=== PATIENT | female | born 1945 | race Caucasian/White ===

== ENCOUNTER 2017-11-22 09:26 | Emergency (ER) | payer MEDICARE ==
[2017-11-22 09:50] VITALS: RESP 18
[2017-11-22] MEDS ORDERED: SODIUM CHLORIDE 0.9% 500 ML IV STA (10:24)
--- NOTE | 2017-11-22 10:26 | ED ---
General Adult HPI - General Chief complaint: Arrhythmia/Palpitations Stated complaint: SOB Time Seen by Provider: 11/22/17 09:35 Source: patient, RN notes reviewed Mode of arrival: ambulatory Limitations: no limitations - History of Present Illness Initial comments: This is a 72-year-old female presents emergency Department with a past medical history significant for SVT in the past. Patient states she had an ablation in 2004. Patient states yesterday she had about a half hour long episode of palpitations. It resolved on its own. Patient states she was also short of breath when this occurred. Patient states again this morning she started having some shortness of breath lasted about an hour and then it resolved. Patient states again she was short of breath. Patient states currently she is asymptomatic. Patient states at no time did she have any chest pain. Patient denies any sweating patient denies any nausea patient denies headache patient denies numbness weakness. Patient denies lightheadedness dizziness or near syncopal episode. Patient denies any recent fever chills or cough. - Related Data Home Medications Medication Instructions Recorded Confirmed Aspirin 81 mg PO DAILY 10/25/15 11/16/15 Atorvastatin [Lipitor] 10 mg PO HS 10/25/15 11/16/15 Celecoxib [CeleBREX] 200 mg PO DAILY 10/25/15 11/16/15 Cholecalciferol [Vitamin D3] 2,000 unit PO DAILY 10/25/15 11/16/15 Fluticasone Nasal [place] [Flonase 1 spray EA NOSTRIL DAILY PRN 10/25/15 11/16/15 Nasal [place]] Lansoprazole [Prevacid] 30 mg PO DAILY 10/25/15 11/16/15 Metoprolol Tartrate [Lopressor] 25 mg PO BID 10/25/15 11/16/15 Multivitamins, Thera [Multivitamin 1 tab PO DAILY 10/25/15 11/16/15 (formulary)] Previous Rx's Medication Instructions Recorded Rivaroxaban [Xarelto] 10 mg PO DAILY #28 tab 11/07/15 Docusate [Colace] 100 mg PO DAILY #30 capsule 11/08/15 Famotidine [Pepcid] 20 mg PO DAILY #30 tablet 11/08/15 Hydrocodone/Acetaminophen [[place] 1 each PO Q6HR PRN #40 tab 11/08/15 5-325] traMADol HCl [Ultram] 50 mg PO Q6H PRN #40 tab 11/08/15 Allergies Allergy/AdvReac Type Severity Reaction Status Date / Time sulfamethoxazole Allergy Itching Verified 11/22/17 09:34 [From Bactrim] trimethoprim [From Bactrim] Allergy Itching Verified 11/22/17 09:34 Review of Systems ROS Statement: Those systems with pertinent positive or pertinent negative responses have been documented in the HPI. ROS Other: All systems not noted in ROS Statement are negative. Past Medical History Past Medical History: Deep Vein Thrombosis (DVT), Eye Disorder, GERD/Reflux, Hyperlipidemia, Osteoarthritis (OA), Pulmonary Embolus (PE), Supraventricular Tachycardia (SVT) Additional Past Medical History / Comment(s): MACULAR DEGENERATION History of Any Multi-Drug Resistant Organisms: None Reported Past Surgical History: Cardiac Ablation, Joint Replacement Additional Past Surgical History / Comment(s): ANTERIOR TOTAL RIGHT HIP, Left hip sx Past Anesthesia/Blood Transfusion Reactions: No Reported Reaction Past Psychological History: Anxiety Smoking Status: Never smoker Past Alcohol Use History: Rare Past Drug Use History: None Reported - Past Family History Mother Family Medical History: No Reported History General Exam - General Exam Comments Initial Comments: GENERAL: Patient is well-developed and well-nourished. Patient is nontoxic and well- hydrated and is in mild distress. ENT: Neck is soft and supple. No significant lymphadenopathy is noted. Oropharynx is clear. Moist mucous membranes. Neck has full range of motion without eliciting any pain. EYES: The sclera were anicteric and conjunctiva were pink and moist. Extraocular movements were intact and pupils were equal round and reactive to light. Eyelids were unremarkable. PULMONARY: Unlabored respirations. Good breath sounds bilaterally. No audible rales rhonchi or wheezing was noted. CARDIOVASCULAR: There is a regular rate and rhythm without any murmurs gallops or rubs. Femoral pulses are equal bilaterally ABDOMEN: Soft and nontender with normal bowel sounds. No palpable organomegaly was noted. There is no palpable pulsatile mass. SKIN: Skin is clear with no lesions or rashes and otherwise unremarkable. NEUROLOGIC: Patient is alert and oriented x3. Cranial nerves II through XII are grossly intact. Motor and sensory are also intact. Normal speech, volume and content. Symmetrical smile. MUSCULOSKELETAL: Normal extremities with adequate strength and full range of motion. No lower extremity swelling or edema. No calf tenderness. LYMPHATICS: No significant lymphadenopathy is noted PSYCHIATRIC: Normal psychiatric evaluation. Normal interpersonal interactions appears functionally intact in deals appropriately with others. No signs of depression. No signs of anxiety. Limitations: no limitations Course Vital Signs 11/22/17 11/22/17 11/22/17 09:33 09:48 10:57 Temperature 98.0 F 98.2 F Pulse Rate 67 63 53 L Respiratory 20 18 18 Rate Blood Pressure 126/69 142/68 136/68 O2 Sat by Pulse 98 97 98 Oximetry Medical Decision Making - Medical Decision Making EKG is a normal sinus rhythm at 63 bpm NM interval is 200 QRS is 126 QT interval 440 QTC is 458. Patient's EKG is compared to old EKG there are no acute changes. Chest x-ray shows no acute abnormality. - Lab Data Result diagrams: 11/22/17 09:48 11/22/17 09:48 Lab Results 11/22/17 11/22/17 11/22/17 Range/Units 09:48 09:48 09:48 WBC 5.3 (3.8-10.6) k/uL RBC 4.66 (3.80-5.40) m/uL Hgb 14.3 (11.4-16.0) gm/dL Hct 43.3 (34.0-46.0) % MCV 93.1 (80.0-100.0) fL MCH 30.6 (25.0-35.0) pg MCHC 32.9 (31.0-37.0) g/dL RDW 12.8 (11.5-15.5) % Plt Count 216 (150-450) k/uL Neutrophils % 54 % Lymphocytes % 32 % Monocytes % 7 % Eosinophils % 3 % Basophils % 0 % Neutrophils # 2.8 (1.3-7.7) k/uL Lymphocytes # 1.7 (1.0-4.8) k/uL Monocytes # 0.4 (0-1.0) k/uL Eosinophils # 0.2 (0-0.7) k/uL Basophils # 0.0 (0-0.2) k/uL PT (9.0-12.0) sec INR (<1.2) APTT (22.0-30.0) sec Sodium 141 (137-145) mmol/L Potassium 5.3 H (3.5-5.1) mmol/L Chloride 102 (98-107) mmol/L Carbon Dioxide 31 H (22-30) mmol/L Anion Gap 8 mmol/L BUN 23 H (7-17) mg/dL Creatinine 0.71 (0.52-1.04) mg/dL Est GFR (CKD-EPI)AfAm >90 (>60 ml/min/1.73 sqM) Est GFR (CKD-EPI)NonAf 86 (>60 ml/min/1.73 sqM) Glucose 110 H (74-99) mg/dL Calcium 10.3 H (8.4-10.2) mg/dL Magnesium 2.2 (1.6-2.3) mg/dL Total Bilirubin 0.5 (0.2-1.3) mg/dL AST 34 (14-36) U/L ALT 40 (9-52) U/L Alkaline Phosphatase 64 (38-126) U/L Total Creatine Kinase 58 (30-135) U/L CK-MB (CK-2) 0.7 (0.0-2.4) ng/mL CK-MB (CK-2) Rel Index 1.2 Troponin I <0.012 (0.000-0.034) ng/mL Total Protein 7.3 (6.3-8.2) g/dL Albumin 4.4 (3.5-5.0) g/dL TSH 1.570 (0.465-4.680) mIU/L Free T4 1.14 (0.78-2.19) ng/dL 11/22/17 Range/Units 09:48 WBC (3.8-10.6) k/uL RBC (3.80-5.40) m/uL Hgb (11.4-16.0) gm/dL Hct (34.0-46.0) % MCV (80.0-100.0) fL MCH (25.0-35.0) pg MCHC (31.0-37.0) g/dL RDW (11.5-15.5) % Plt Count (150-450) k/uL Neutrophils % % Lymphocytes % % Monocytes % % Eosinophils % % Basophils % % Neutrophils # (1.3-7.7) k/uL Lymphocytes # (1.0-4.8) k/uL Monocytes # (0-1.0) k/uL Eosinophils # (0-0.7) k/uL Basophils # (0-0.2) k/uL PT 9.8 (9.0-12.0) sec INR 1.0 (<1.2) APTT 21.8 L (22.0-30.0) sec Sodium (137-145) mmol/L Potassium (3.5-5.1) mmol/L Chloride (98-107) mmol/L Carbon Dioxide (22-30) mmol/L Anion Gap mmol/L BUN (7-17) mg/dL Creatinine (0.52-1.04) mg/dL Est GFR (CKD-EPI)AfAm (>60 ml/min/1.73 sqM) Est GFR (CKD-EPI)NonAf (>60 ml/min/1.73 sqM) Glucose (74-99) mg/dL Calcium (8.4-10.2) mg/dL Magnesium (1.6-2.3) mg/dL Total Bilirubin (0.2-1.3) mg/dL AST (14-36) U/L ALT (9-52) U/L Alkaline Phosphatase (38-126) U/L Total Creatine Kinase (30-135) U/L CK-MB (CK-2) (0.0-2.4) ng/mL CK-MB (CK-2) Rel Index Troponin I (0.000-0.034) ng/mL Total Protein (6.3-8.2) g/dL Albumin (3.5-5.0) g/dL TSH (0.465-4.680) mIU/L Free T4 (0.78-2.19) ng/dL Disposition Clinical Impression: Palpitations Disposition: HOME SELF-CARE Condition: Good Instructions: Palpitations (ED) Is patient prescribed a controlled substance at d/c from ED?: No Referrals: Joe Euceda MD [Primary Care Provider] - 1-2 days Time of Disposition: 11:26
[2017-11-22 10:47] LABS: Basophils % (A) 0 %; Eosinophils # (A) 0.2 k/uL (0-0.7); Eosinophils % (A) 3 %; HCT 43.3 % (34.0-46.0); HGB 14.3 gm/dL (11.4-16.0); Lymphocytes # (A) 1.7 k/uL (1.0-4.8); Lymphocytes % (A) 32 %; MCH 30.6 pg (25.0-35.0); MCHC 32.9 g/dL (31.0-37.0); MCV 93.1 fL (80.0-100.0); Mean Platelet Volume 7.1; Monocytes # (A) 0.4 k/uL (0-1.0); Monocytes % (A) 7 %; Neutrophils # (A) 2.8 k/uL (1.3-7.7); Neutrophils % (A) 54 %; Platelet Count 216 k/uL (150-450); RBC 4.66 m/uL (3.80-5.40); RDW 12.8 % (11.5-15.5); WBC 5.3 k/uL (3.8-10.6)
[2017-11-22 10:51] LABS: ALT 40 U/L (9-52); AST 34 U/L (14-36); Albumin 4.4 g/dL (3.5-5.0); Alkaline Phosphatase 64 U/L (38-126); Anion Gap 8 mmol/L; Blood Urea Nitrogen 23 mg/dL (7-17); Calcium 10.3 mg/dL (8.4-10.2); Carbon Dioxide 31 mmol/L (22-30); Chloride 102 mmol/L (98-107); Glucose 110 mg/dL (74-99); Magnesium 2.2 mg/dL (1.6-2.3); Potassium 5.3 mmol/L (3.5-5.1); Sodium 141 mmol/L (137-145); Total Bilirubin 0.5 mg/dL (0.2-1.3); Total Protein 7.3 g/dL (6.3-8.2)
[2017-11-22 10:54] LABS: Creatine Kinase 58 U/L (30-135)
[2017-11-22 10:57] VITALS: BP 136/68; PULSE 53; TEMP 98.2
[2017-11-22 11:03] LABS: Prothrombin Time 9.8 sec (9.0-12.0)
[2017-11-22 11:07] LABS: Creatine Kinase MB 0.7 ng/mL (0.0-2.4); Troponin I <0.012 ng/mL (0.000-0.034)
[2017-11-22 11:08] LABS: T4, Free (Free Thyroxine) 1.14 ng/dL (0.78-2.19)
[2017-11-22 11:09] LABS: Partial Thromboplastin Time 21.8 sec (22.0-30.0)
--- NOTE | 2017-11-22 11:11 | XR ---
EXAMINATION TYPE: XR chest 2V DATE OF EXAM: 11/22/2017 COMPARISON: Chest x-ray December 23, 2011. HISTORY: Palpitations and dysrhythmia. TECHNIQUE: Frontal and lateral views of the chest are obtained. FINDINGS: There is persistent left basilar linear scarring and/or atelectasis There is no new suspici ous focal air space opacity, pleural effusion, or pneumothorax seen. The cardiac silhouette size is within normal limits. The osseous structures are intact. IMPRESSION: No suspicious new acute cardiopulmonary process.
== END 2017-11-22 11:49 | disposition home or self-care (01) ==
LOC: EC 09:26
DX: R00.2 Palpitations (principal); R06.02 Shortness of breath; K21.9 Gastro-esophageal reflux disease without esophagitis; E78.5 Hyperlipidemia, unspecified; M19.90 Unspecified osteoarthritis, unspecified site; Z79.82 Long term (current) use of aspirin; Z79.899 Other long term (current) drug therapy; Z88.2 Allergy status to sulfonamides; Z96.641 Presence of right artificial hip joint
CPT/HCPCS: 36415; 71046; 80053; 82550; 82553; 83735; 84439; 84443; 84484; 85025; 85610; 85730; 93005; 99285

== ENCOUNTER → 2018-01-01 | Outpatient (CLI) | payer MEDICARE ==
[2018-01-01 10:08] VITALS: BP 113/70; PULSE 66; RESP 18; TEMP 97.7; BMI 27.0
--- NOTE | 2018-01-01 10:59 | P.GSHP ---
History of Present Illness H&P Date: 01/01/18 Mrs. Ferrara is a 72-year-old white female who was initially seen approximately a year ago with a complaint of pain in her right breast. Since that time she has been taking primrose oil and the pain has largely resolved. She has had a bilateral mammogram performed 12/21/17 which did not reveal anything of concern and was considered a BIRADS 1 and recommend normal interval follow-up. The patient herself denies any masses in her breast. She denies any nipple discharge or skin changes. The patient is not complaining of any pain in her breast at this time. The patient drinks decaffeinated coffee, she is not exposed to secondhand smoke , and she drinks approximately one soda a day as his caffeine free. She does not eat chocolate. She continues to take primrose oil and has noticed a decreased discomfort in the right breast with a primrose oil. Family history: 1. Maternal grandmother with leukemia 2. Mother breast cancer 47 of breast cancer, locally advanced "hole in her side" 3. Father melanoma and prostate cancer Past surgical history: 1. Hysterectomy 2. Appendectomy 3. Bilateral hip replacement 4. Cardiac ablation 5. Left-sided neck lump Past medical history: 1. HTN menarche: 14 : none, intentional menopause: about 51, hysterectomy at 61 took ovaries done for fibroid tumors hormones: none BCP: 5 years Social history: Smoking: Negative Alcohol: negative Drugs: Negative - Constitutional Constitutional: Reports sweats, Denies chills, Denies fever - EENT Eyes: bilateral decreased vision (macular degenertion), denies blurred vision, denies pain Ears: deny: decreased hearing, tinnitus Ears, nose, mouth and throat: Denies headache, Denies sore throat - Breasts Breasts: bilateral: as per HPI - Cardiovascular Comment: cardiac ablation, has PVC Cardiovascular: Reports high blood pressure - Respiratory Respiratory: Denies cough, Denies 7 - Gastrointestinal Gastrointestinal: Denies abdominal pain, Denies diarrhea, Denies nausea, Denies vomiting - Menstruation Menstruation: Reports post hysterectomy, Reports postmenopausal - Musculoskeletal Comment: osteo arthritis - Integumentary Comment: pre-cancers removed - Neurological Neurological: Denies numbness, Denies weakness - Psychiatric Psychiatric: Denies anxiety, Denies depression - Endocrine Endocrine: Denies fatigue, Denies weight change - Hematologic/Lymphatic Comment: aspirin - Allergic/Immunologic Comment: to medication Bactrim Past Medical History Past Medical History: Deep Vein Thrombosis (DVT), Eye Disorder, GERD/Reflux, Hyperlipidemia, Osteoarthritis (OA), Pulmonary Embolus (PE), Supraventricular Tachycardia (SVT) Additional Past Medical History / Comment(s): MACULAR DEGENERATION History of Any Multi-Drug Resistant Organisms: None Reported Past Surgical History: Cardiac Ablation, Joint Replacement Additional Past Surgical History / Comment(s): ANTERIOR TOTAL RIGHT HIP, Left hip sx. rt breast biopsies Past Anesthesia/Blood Transfusion Reactions: No Reported Reaction Past Psychological History: Anxiety Smoking Status: Never smoker Past Alcohol Use History: Rare Past Drug Use History: None Reported - Past Family History Mother Family Medical History: No Reported History Medications and Allergies Home Medications Medication Instructions Recorded Confirmed Type Aspirin 81 mg PO DAILY 10/25/15 01/01/18 History Atorvastatin [Lipitor] 10 mg PO HS 10/25/15 01/01/18 History Celecoxib [CeleBREX] 200 mg PO DAILY 10/25/15 01/01/18 History Cholecalciferol [Vitamin D3] 2,000 unit PO DAILY 10/25/15 01/01/18 History Fluticasone Nasal [place] [Flonase 1 spray EA NOSTRIL DAILY PRN 10/25/15 11/16/15 History Nasal [place]] Lansoprazole [Prevacid] 30 mg PO DAILY 10/25/15 01/01/18 History Metoprolol Tartrate [Lopressor] 25 mg PO BID 10/25/15 01/01/18 History Multivitamins, Thera [Multivitamin 1 tab PO DAILY 10/25/15 01/01/18 History (formulary)] Allergies Allergy/AdvReac Type Severity Reaction Status Date / Time sulfamethoxazole Allergy Itching Verified 11/22/17 09:34 [From Bactrim] trimethoprim [From Bactrim] Allergy Itching Verified 11/22/17 09:34 Surgical - Exam Vital Signs Temp Pulse Resp BP 97.7 F 66 18 113/70 01/01/18 10:04 01/01/18 10:04 01/01/18 10:04 01/01/18 10:04 - General well developed, well nourished, no distress - Eyes normal ocular movement - ENT no hearing loss, no congestion - Neck no masses, trachea midline - Respiratory normal respiratory effort, clear to auscultation - Cardiovascular Rhythm: regular Heart Sounds: normal: S1, S2 - Abdomen Abdomen: soft, non tender, no guarding, no rigid, no rebound - Neurologic no disoriented, no combative - Musculoskeletal normal gait, normal posture - Psychiatric oriented to time, oriented to person, oriented to place, speech is normal, memory intact Breast examination: Right breast: Right breast is larger than the left breast this is been like this for many years multiple positional exam no dominant masses or nodules of concern, mild tenderness to palpation in the upper outer quadrant region improved from last year Right axilla: No adenopathy of concern Left breast: Multiple positional exam no dominant masses or nodules of concern Left axilla: No adenopathy of concern Results Bilateral mammogram from 12-21-17 reviewed BIRADS 1 Assessment and Plan Assessment: Impression/plan: 1. Polycystic breast changes 2. Mastodynia improved with primrose oil 3. Status post cardiac ablation 4. Osteoarthritis Plan: 1. Monthly self breast examinations 2. Continue primrose oil 3. Follow-up bilateral mammogram in physician exam in 1 year 4. Medical management of cardiac PVCs CC: Dr. Joe Euceda
== END ==
LOC: WWCWWP 09:46
PROVIDERS: ATTEND Surgery
DX: Z53.9 Procedure and treatment not carried out, unspecified reason (principal)

== ENCOUNTER → 2018-12-30 | Outpatient (CLI) | payer MEDICARE ==
--- NOTE | 2018-12-31 11:34 | MM ---
Reason for exam: screening (asymptomatic). Last mammogram was performed 1 year ago. History: Patient is postmenopausal and is nulliparous. Took hormonal contraceptives for 1 year. Taking estrogen. Physical Findings: A clinical breast exam by your physician is recommended on an annual basis and results should be correlated with mammographic findings. MG 3D Screening Mammo W/Cad Bilateral CC and MLO view(s) were taken. Prior study comparison: December 21, 2017, mammogram. December 08, 2016, mammogram. The breast tissue is heterogeneously dense. This may lower the sensitivity of mammography. Previous mammotome biopsy in the right breast. Asymmetric breast tissue in the right breast is stable. There is no discrete abnormality. ASSESSMENT: Negative, BI-RAD 1 RECOMMENDATION: Routine screening mammogram of both breasts in 1 year.
== END | disposition home or self-care (01) ==
LOC: RADMAMWWP 08:12
PROVIDERS: ATTEND Internal Medicine
DX: Z12.31 Encounter for screening mammogram for malignant neoplasm of breast (principal); Z80.3 Family history of malignant neoplasm of breast
CPT/HCPCS: 77063; 77067

== ENCOUNTER → 2019-01-05 | Outpatient (CLI) | payer MEDICARE ==
[2019-01-05 10:22] LABS: HGB 13.7 gm/dL (11.4-16.0); MCH 29.8 pg (25.0-35.0); MCHC 31.9 g/dL (31.0-37.0); MCV 93.3 fL (80.0-100.0); Mean Platelet Volume 7.4; Platelet Count 218 k/uL (150-450); WBC 6.7 k/uL (3.8-10.6)
[2019-01-05 10:39] LABS: Magnesium 2.2 mg/dL (1.6-2.3); Potassium 5.4 mmol/L (3.5-5.1)
== END | disposition home or self-care (01) ==
LOC: LABPAT 09:25
PROVIDERS: ATTEND Internal Medicine Interventional Cardiology
DX: Z01.812 Encounter for preprocedural laboratory examination (principal); I47.1 Supraventricular tachycardia; R07.89 Other chest pain
CPT/HCPCS: 80051; 82565; 82947; 83735; 84520; 85027

== ENCOUNTER → 2019-01-07 | Outpatient (CLI) | payer MEDICARE ==
[2019-01-07 10:49] VITALS: BP 102/67; PULSE 52; RESP 18; TEMP 98.5; BMI 27.0
--- NOTE | 2019-01-07 11:06 | P.PN ---
Subjective Progress Note Date: 01/07/19 Mrs. Ferrara is a 73-year-old white female who was initially seen approximately two years ago with a complaint of pain in her right breast. Since that time she has been taking primrose oil and the pain has largely resolved. She has had a bilateral mammogram performed 12/30/18 which did not reveal anything of concern and was considered a BIRADS 1 and recommend normal interval follow-up. The patient herself denies any masses in her breast. She denies any nipple discharge or skin changes. The patient is not complaining of any pain in her breast at this time. The patient drinks decaffeinated coffee, she is not exposed to secondhand smoke, and she drinks approximately one soda a day and this is caffeine free. She does not smoke. She does not eat chocolate often. She continues to take primrose oil and has noticed a decreased discomfort in the right breast with a primrose oil. She takes one pill/day of [place] oil but she does not know the dose. Family history: 1. Maternal grandmother with leukemia 2. Mother breast cancer 47 of breast cancer, locally advanced "hole in her side" 3. Father melanoma and prostate cancer Past surgical history: 1. Hysterectomy 2. Appendectomy 3. Bilateral hip replacement 4. Cardiac ablation/ done for SVT 5. Left-sided neck lump Past medical history: 1. hypotension, scheduled for cadiac cath 2. DVT 3. eye disorder 4. reflux 5. hyperlipedema 6. Pulmoary embolis 7. osteoarthrits menarche: 14 : none, intentional menopause: about 51, hysterectomy at 61 took ovaries done for fibroid tumors hormones: none BCP: 5 years Social history: Smoking: Negative Alcohol: negative Drugs: Negative - Constitutional Constitutional: Reports sweats, Denies chills, Denies fever - EENT Eyes: bilateral decreased vision (macular degenertion), denies blurred vision, d enies pain Ears: deny: decreased hearing, tinnitus Ears, nose, mouth and throat: Denies headache, Denies sore throat - Breasts Breasts: bilateral: as per HPI - Cardiovascular Comment: cardiac ablation, has PVC Cardiovascular: Reports recent hypotension, scheduled for a cardiac cath - Respiratory Respiratory: Denies cough, Denies 7 - Gastrointestinal Gastrointestinal: Denies abdominal pain, Denies diarrhea, Denies nausea, Denies vomiting, reflux gone on medication - Menstruation Menstruation: Reports post hysterectomy, Reports postmenopausal - Musculoskeletal Comment: osteo arthritis - Integumentary Comment: pre-cancers removed - Neurological Neurological: Denies numbness, Denies weakness - Psychiatric Psychiatric: Denies anxiety, Denies depression - Endocrine Endocrine: Denies fatigue, Denies weight change - Hematologic/Lymphatic Comment: aspirin - Allergic/Immunologic Comment: to medication Bactrim Past Medical History Past Medical History: Deep Vein Thrombosis (DVT), Eye Disorder, GERD/Reflux, Hyperlipidemia, Osteoarthritis (OA), Pulmonary Embolus (PE), Supraventricular Tachycardia (SVT) Additional Past Medical History / Comment(s): MACULAR DEGENERATION History of Any Multi-Drug Resistant Organisms: None Reported Past Surgical History: Cardiac Ablation, Joint Replacement Additional Past Surgical History / Comment(s): ANTERIOR TOTAL RIGHT HIP, Left hip sx. rt breast biopsies Past Anesthesia/Blood Transfusion Reactions: No Reported Reaction Past Psychological History: Anxiety Smoking Status: Never smoker Past Alcohol Use History: Rare Past Drug Use History: None Reported Objective - Vital Signs Vital signs: Vital Signs Temp 98.5 F 01/07/19 10:43 Pulse 52 L 01/07/19 10:43 Resp 18 01/07/19 10:43 BP 102/67 01/07/19 10:43 Pulse Ox 96 01/07/19 10:43 Intake & Output 01/06/19 01/07/19 01/07/19 18:59 06:59 18:59 Weight 83.007 kg - Exam BMI 27 - Constitutional General appearance: Present: average body habitus - EENT Eyes: Present: EOMI ENT: Present: hearing grossly normal - Neck Neck: Present: normal ROM - Respiratory Respiratory: bilateral: CTA - Cardiovascular Rhythm: regular Heart sounds: normal: S1, S2 - Gastrointestinal General gastrointestinal: Present: soft - Musculoskeletal Musculoskeletal: Present: gait normal - Psychiatric Psychiatric: Present: A&O x's 3, appropriate affect, intact judgment & insight - Additional findings Additional findings: breast exam: right breast: multipositional exam no dominate masses or nodules of concern right axilla: no adenopathy of concern left breast: multipositional exam no dominate masses or nodules of concern left axilla: no adenopathy of concern Assessment and Plan Assessment: Impression: 1. hypotension, scheduled for cadiac cath 2. DVT 3. eye disorder 4. reflux 5. hyperlipedema 6. Pulmoary embolis 7. osteoarthrits 8. Fibrocystic breast changes 9. Asymmetry of the breast right larger than the left 10. family history of breast cancer 11. family history of cancer Plan: 1. Repeat bilateral mammogram in one year with appointment in one year 2. follow up sooner if anything of concern 3. medical managment [place] medical conditions CC: Dr. Euceda
== END | disposition home or self-care (01) ==
LOC: WWCWWP 10:16
PROVIDERS: ATTEND Surgery
DX: Z53.9 Procedure and treatment not carried out, unspecified reason (principal)

== ENCOUNTER 2019-01-17 05:58 | Day surgery (SDC) | payer MEDICARE ==
[2019-01-10 15:22] VITALS: BMI 27.0
[2019-01-17] MEDS ORDERED: NITROGLYCERIN SL TABS 0.4 MG TAB SUBLINGUAL PRN (06:09)
[2019-01-17] MEDS ORDERED: SODIUM CHLORIDE 0.9% 1,000 ML in EMPTY BAG 1 BAG IV ONE (06:09)
[2019-01-17] MEDS ORDERED: ALPRAZolam 0.5 MG TAB PO PRN (06:09)
[2019-01-17] MEDS ORDERED: ALPRAZolam 0.25 MG TAB PO PRN (06:09)
[2019-01-17 06:43] VITALS: TEMP 98
[2019-01-17] MEDS ORDERED: ASPIRIN 325 MG TAB PO ONE (07:00)
[2019-01-17] MEDS ORDERED: ATORVASTATIN 80 MG TAB PO ONE (07:00)
[2019-01-17] MEDS ORDERED: MIDAZOLAM (PF) 2 MG/2 ML VIAL IV ONE (07:54)
[2019-01-17] MEDS ORDERED: LIDOCAINE 1% INJ 10MG/ML (20 ML MDV) SQ ONE (07:57)
[2019-01-17] MEDS: VERAPAMIL SYRINGE (5 MG/10 ML) INTRAARTER ONE ×2 (08:00→08:08)
[2019-01-17] MEDS ORDERED: HEPARIN SODIUM 1,000 UN/ML (10ML VL) IV ONE (08:02)
[2019-01-17] MEDS ORDERED: IOPAMIDOL-370 100ML BTL INJ ONE (08:09)
--- NOTE | 2019-01-17 08:48 | CC ---
CARDIAC CATHETERIZATION REPORT DATE OF SERVICE: 01/17/2019 PROCEDURE: Left heart catheterization and coronary angiography. PERFORMED BY: Dr. Barbara Agarwal. Moderate conscious sedation time was 14 minutes. Patient was administered Versed. Oxygen saturation, hemodynamics and EKG were monitored closely. CLINICAL INFORMATION: Mrs. Nay Ferrara is a 73-year-old lady with history of SVT, status post radiofrequency ablation performed in the past in [place]. She has hypertension, hyperlipidemia and recently developed chest tightness and pressure. A Lexiscan stress test revealed antral reversible defect and therefore she was advised cardiac catheterization. The rationale, risks, benefits, and options were explained to the patient and . PROCEDURE NOTE: Under local anesthesia and strict aseptic precautions, a 6-[place] introducer was placed in the right radial artery. Using an Ultimate 1 catheter, I performed coronary angiography and checked LV pressures. Catheter and sheath were taken out and TR band applied as per protocol. Patient tolerated procedure well. There were no complications. The saturation in the fingers of the right hand was 94% after the procedure. CARDIAC CATHETERIZATION FINDINGS: The left ventricular end-diastolic pressure was about 13 mmHg without any gradient across aortic valve. CORONARY ANGIOGRAPHY FINDINGS: RIGHT CORONARY ARTERY: Technically a large dominant vessel, has no significant disease and distally bifurcates into PDA and PLV, both of which supply a sizable amount of myocardium. No significant disease in the dominant RCA. LEFT MAIN CORONARY ARTERY: This is left main coronary artery. this is a long patent disease-free vessel that bifurcates into LAD and circumflex. There is no significant disease in the left main coronary artery. This is a long disease-free vessel. LEFT ANTERIOR DESCENDING CORONARY ARTERY: Good caliber vessel, extends along the anterior wall, gives off a large diagonal proximally that also runs in the LAD distribution. The diagonal is free of significant disease in LAD. However, is smaller in caliber, has no significant disease, gives off septal branch and runs towards the apex. No significant disease in the LAD diagonal and septal branches. LEFT POSTERIOR CIRCUMFLEX CORONARY ARTERY: Technically a nondominant vessel that runs the that runs laterally, gives off a single obtuse marginal has minor irregularities no significant disease. LEFT VENTRICULOGRAM: This was not performed. FINAL IMPRESSION: This patient has a right dominant system. Normal filling pressures. No gradient across the aortic valve and no significant disease. Stress test was probably a false positive. RECOMMENDATIONS: Findings were discussed with the patient and . I am recommending continued medical therapy with risk factor modification. No specific intervention necessary. Patient will be discharged later on today if she remains stable. MMODL / IJN: [id number] /
[2019-01-17 14:55] VITALS: PULSE 58
[2019-01-17 14:56] VITALS: BP 118/62; RESP 18
== END 2019-01-17 14:09 | disposition home or self-care (01) ==
LOC: CATHCVL 05:58
PROVIDERS: ATTEND Internal Medicine Interventional Cardiology
DX: R94.39 Abnormal result of other cardiovascular function study (principal); R07.89 Other chest pain; I10 Essential (primary) hypertension; E78.5 Hyperlipidemia, unspecified; E78.00 Pure hypercholesterolemia, unspecified; F17.210 Nicotine dependence, cigarettes, uncomplicated; Z79.82 Long term (current) use of aspirin; Z79.890 Hormone replacement therapy; Z79.899 Other long term (current) drug therapy
CPT/HCPCS: 93458; C1769; C1894; J2001; J1644; Q9967; J2250

== ENCOUNTER → 2019-11-24 | Outpatient (CLI) | payer MEDICARE | END | disposition home or self-care (01) | LOC: LABPAT 09:01 | PROVIDERS: ATTEND Orthopaedic Surgery | DX: Z01.812 Encounter for preprocedural laboratory examination (principal) | CPT/HCPCS: 87070 ==

== ENCOUNTER 2019-12-05 10:58 | Observation (INO) | payer MEDICARE ==
[2019-12-02 07:56] VITALS: BMI 25.7
--- NOTE | 2019-12-04 09:56 | HP ---
HISTORY AND PHYSICAL REASON FOR ADMISSION: Surgery scheduled for 12/05/2019 HISTORY OF PRESENT ILLNESS: Nay Ferrara is a 74-year-old patient seen with symptomatic right knee osteoarthritis. We discussed options for treatment. She elected to proceed with right total knee arthroplasty. Consent regarding the procedure was obtained. Medical clearance was provided by [facility]. Cardiac clearance by Dr. Barbara Agarwal. PAST MEDICAL HISTORY: Hypertension, hyperlipidemia, gastroesophageal reflux disease. PAST SURGICAL HISTORY: Bilateral total hip arthroplasty, cardiac ablation, appendectomy. MEDICATIONS: Metoprolol, atorvastatin, Celebrex, Flonase, omeprazole. ALLERGIES: BACTRIM. SOCIAL HISTORY: She denies tobacco use. PHYSICAL EXAMINATION: Evaluation of right knee: Range of motion is -3 to 130. Tenderness medial joint line. Crepitus medial patellofemoral compartments range of motion. Pain with patellofemoral compression. Ligaments stable. Hip rotation without pain. Distal neurovascular exam is intact. RADIOGRAPHS: Right knee radiographs reveal severe osteoarthritic changes. IMPRESSION: 1. Right knee osteoarthritis. 2. Hypertension. 3. Hyperlipidemia. PLAN: Right total knee arthroplasty. Surgery 12/05/2019. MMODL / IJN: [id number] /
[~2019-12-05 10:58] MED LIST: ACETAMINOPHEN TAB 500 MG TAB PO ONE; MELOXICAM 7.5 MG TAB PO ONE; TRANEXAMIC ACID 1,000 MG in SODIUM CHLORIDE 0.9% 100 ML IVPB ONE
[2019-12-05] MEDS ORDERED: LACTATED RINGERS 1,000 ML IV ONE ×2 (11:43→12:57)
[2019-12-05] MEDS ORDERED: MIDAZOLAM 2 MG/2 ML VIAL IVP ONE (11:50)
[2019-12-05] MEDS ORDERED: fentaNYL (PF) 50 MCG/ML 2 ML AMP IVP ONE (11:50)
[2019-12-05] MEDS ORDERED: DEXAMETHASONE SOD PHOSPHATE 10 MG/ML 1 ML VIAL IV ONE (12:00)
[2019-12-05] MEDS ORDERED: ONDANSETRON 4 MG/2 ML VIAL IVP ONE (12:00)
[2019-12-05] MEDS ORDERED: TRANEXAMIC ACID 1,000 MG/10 ML VIAL ONE (12:10)
[2019-12-05] MEDS ORDERED: MIDAZOLAM 2 MG/2 ML VIAL ONE (12:10)
[2019-12-05] MEDS ORDERED: PROPOFOL 10 MG/ML 20 ML VIAL IV ONE (12:10)
[2019-12-05] MEDS ORDERED: PHENYLEPHRINE-0.9% NACL SYG 1 MG/10 ML SYRINGE ONE (12:10)
[2019-12-05] MEDS ORDERED: ROPIVACAINE 0.2%-NS ON-Q PUMP 1,090 MG, EMPTY PAIN BALL 1 EACH MISCELLANE PRN (12:10)
[2019-12-05] MEDS ORDERED: fentaNYL (PF) 50 MCG/ML 2 ML AMP ONE (12:10)
[2019-12-05] MEDS ORDERED: SODIUM CHLORIDE 0.9% 100 ML BAG ONE (12:10)
--- NOTE | 2019-12-05 12:10 | P.ANPRN ---
Procedure Note - Anesthesia - Nerve Block Performed Right Adductor Canal Infusion Time Out Performed: Yes Date of Procedure: 12/05/19 Procedure Start Time: 11:50 Procedure Stop Time: 12:02 Location of Patient: PreOp Indication: Requested by Surgeon Specifically requested for management of pain by DrMonie: Abner Chicas Sedation Type: Sedate with meaningful contact maintained Preparation: Sterile Prep, Sterile Dressing Position: Supine Catheter: Indwelling Needle Types: Pajunk Needle Gauge: 21 Ultrasound used to visualize needle placement: Yes Ultrasound used to observe medication spread: Yes Injectate: 0.5% Ropivacaine (see comment for volume) (20 ml) Blood Aspirated: No Pain Paresthesia on Injection Noted: No Resistance on Injection: Normal Image Stored and Saved: Yes Events: Uneventful and Well Tolerated
[2019-12-05] MEDS ORDERED: ceFAZolin 3,000 MG in SODIUM CHLORIDE 0.9% IRRIGATIO 3,000 ML IRRIGATION ONE (12:14)
[2019-12-05] MEDS: ROPIVACAINE 246.25 MG, EPINEPHrine 0.5 MG, KETOROLAC 30 MG, cloNIDine HCL/PF 80 MCG, WA... MISCELLANE ONE ×10 (12:45→13:14)
--- NOTE | 2019-12-05 14:00 | P.OP ---
Date of Procedure: 12/05/19 Preoperative Diagnosis: Right knee osteoarthritis Postoperative Diagnosis: Right knee osteoarthritis Procedure(s) Performed: Right total knee arthroplasty Implants: 1. Depuy attune size 5 right cruciate retaining cemented femur 2. Depuy attune size 4 fixed bearing cemented tibial baseplate 3. Depuy attune size 5 fixed bearing cruciate retaining 8 mm polyethylene tibial insert 4. Depuy attune 35 mm all polyethylene cemented patella Anesthesia: regional (Abductor canal catheter), local, spinal Surgeon: Abner Chicas Newspaper Deliverer #1: Phillip Zapien Estimated Blood Loss (ml): 25 Pathology: other (Bone) Condition: stable Disposition: PACU Indications for Procedure: 74-year-old patient seen with symptomatic right knee osteoarthritis. After treatment options were discussed, she elected to proceed with total knee ar throplasty. Operative Findings: See description of procedure Description of Procedure: Patient was taken to the operative suite after having an adductor canal catheter placed by the department of anesthesia. Patient underwent a spinal anesthetic by the department of anesthesia. Patient was given preoperative IV intake antibiotics and TXA. A well-padded tourniquet was placed about the right lower extremity. The lower extremity was then prepped and draped in the normal sterile orthopedic fashion. The extremity was elevated, a tourniquet was insufflated to 300. A standard anterior incision was made sharply through skin. Dissection was taken down through the subcutaneous soft tissues down to the extensor mechanism. A medial arthrotomy was performed, patella was everted and knee was flexed. There was advanced osteoarthritis noted. I introduced my distal intramedullary femoral drill. I then introduced the distal femoral cutting jig. Epifanio HARLEY secured the cutting jig with 2 pins. I held retractors in position while Epifanio HARLEY performed the distal femoral resection through the guide area we now removed her distal femoral cutting guide. We now placed our 4-in-1 femoral cutting block and positioned and it was secured with 2 pins by Epifanio HARLEY while I held the block in position. The distal femoral finishing was now completed. A proximal tibial cutting guide was positioned. I held the guide in the appropriate position with both hands well Epifanio HARLEY inserted stabilizing pins into the guide. Proximal tibial cut was made. We now placed a trial femoral component into position, along with an appropriate size tibial tray and insert. We now took the knee through range of motion and had full extension good flexion and good overall soft tissue balance noted. The patella was everted and stabilized with 2 towel clips held by Epifanio HARLEY while I performed a flush with patellar quad tendon utilizing a fresh sawblade. We templated the patella, appropriate drill holes were made. An appropriate trial patella was positioned, knee was taken through full range of motion with the patella tracking very nicely. The trial patella was removed. Drill holes were made through the femoral component. All trial components were removed after marking off the appropriate rotation of the tibia. Retractors were now positioned along the proximal tibia. An appropriate keel punch was made with the appropriate size tibial guide by myself on Epifanio HARLEY assisted by holding retractors. At this point appropriate size implants were chosen and opened. The joint was irrigated copiously with pulse lavage mechanical irrigation. The posterior capsule was infiltrated with local analgesic. The wound was irrigated with pulse lavage mechanical irrigation. We mixed antibiotic methylmethacrylate. We placed the knee into flexion. We placed multiple retractors assisted by Epifanio HARLEY to expose the proximal tibia. Once the methyl methacrylate was ready, the tibial component was cemented into place removing any excess methylmethacrylate form by both myself and Epifanio HARLEY. The femoral component was cemented into place removing the removing any excess methylmethacrylate performed by both myself and Epifanio HARLEY. We then inserted the appropriate size polyethylene tibial insert. We made sure that it was locked into position. We took the knee into full extension, and then back in a flexion making sure we had removed any excess methylmethacrylate. The patellar component was then cemented down and secured with clamp. Excess methylmethacrylate removed. We kept the knee in full extension, patellar clamp in position until methylmethacrylate had hardened. Once it had hardened the patellar clamp was removed. The knee was taken through full range of motion. The patella tracked nicely. There was good soft tissue balancing. The tourniquet was now released. Additional hemostasis was achieved via electrocautery. A second gram of TXA was given. The wound again was irrigated with pulse lavage mechanical irrigation. The superficial soft tissues were infiltrated local analgesic. The extensor mechanism was repaired with Vicryl. We checked the repair with range of motion and it was stable. The subcutaneous soft tissues were repaired with Vicryl in layers. The skin was approximated with pernio/Dermabond. Sterile dressings were applied followed by loose web roll and Nahid bandage. The patient was transferred to a bed, and taken to recovery in stable and satisfactory condition. Epifanio HARLEY assisted with this complex procedure.
[2019-12-05] MEDS ORDERED: NALOXONE 0.4 MG/ML 1 ML VIAL IV PRN (14:02)
[2019-12-05] MEDS ORDERED: HYDROcodone/APAP 5-325MG 1 EACH TAB PO PRN (14:02)
[2019-12-05] MEDS ORDERED: ONDANSETRON 4 MG/2 ML VIAL IVP PRN (14:02)
[2019-12-05] MEDS ORDERED: HYDROmorphone 0.5 MG/0.5 ML SYRINGE IVP PRN ×2 (14:02)
[2019-12-05] MEDS: HYDROmorphone 0.5 MG/0.5 ML SYRINGE IVP ONE ×2 (15:27→16:17)
[2019-12-05] MEDS ORDERED: SODIUM CHLORIDE 0.9% 1,000 ML IV ONE ×3 (15:30)
--- NOTE | 2019-12-05 15:38 | XR ---
EXAMINATION TYPE: XR knee limited RT DATE OF EXAM: 12/05/2019 CLINICAL HISTORY: Right knee pain and arthritis status post total knee replacement. TECHNIQUE: Portable AP and crosstable lateral views of the right knee are obtained immediately posto peratively. COMPARISON: Outside bilateral knee x-rays October 28, 2019 FINDINGS: Metallic hardware from total right knee arthroplasty is seen and appears satisfactory in a lignment and position. There is evidence of recent surgery with diffuse subcutaneous gas and soft ti ssue swelling noted. IMPRESSION: METALLIC HARDWARE FROM TOTAL RIGHT KNEE ARTHROPLASTY IS SATISFACTORY IN ALIGNMENT.
[2019-12-05] MEDS ORDERED: SENNOSIDES-DOCUSATE SODIUM 1 EACH TAB PO SCH (21:00)
[2019-12-05] MEDS: SODIUM CHLORIDE 0.9% 1,000 ML IV SCH (21:08)
[2019-12-05] MEDS: ENOXAPARIN 30 MG/0.3 ML SYRINGE SQ SCH (21:08)
[2019-12-05] MEDS: HYDROmorphone 0.5 MG/0.5 ML SYRINGE IVP PRN (21:14)
[2019-12-05] MEDS ORDERED: PANTOPRAZOLE 40 MG TABLET PO PRN (22:15)
--- NOTE | 2019-12-06 00:13 | P.CONS ---
History of Present Illness - Reason for Consult Consult date: 12/05/19 medical management Requesting physician: Abner Chicas - Chief Complaint right knee OA - History of Present Illness 74 year old female with history of OA of the knees, HTN, HLD patient comes in for scheduled right total knee arthroplasty , after failing outpatient conservative management, and pain interfering with activities of daily living. she tolerated procedure well, denies any chest pain , or trouble breathing, denies any fever, chills, nausea or vomiting, she reports pain is controlled at this point with IV pain meds. Review of Systems Pertinent positives as noted in HPI. All other systems were reviewed and are negative Past Medical History Past Medical History: Cancer, Deep Vein Thrombosis (DVT), Eye Disorder, GERD/Reflux, Hyperlipidemia, Hypertension, Osteoarthritis (OA), Pulmonary Embolus (PE), Supraventricular Tachycardia (SVT) Additional Past Medical History / Comment(s): DVT left leg & PE 2004, skin cancer, past hx. SVT-had ablation History of Any Multi-Drug Resistant Organisms: None Reported Past Surgical History: Appendectomy, Breast Surgery, Cardiac Ablation, Heart Catheterization, Joint Replacement Additional Past Surgical History / Comment(s): constantino hip replacements, rt breast biopsies Past Anesthesia/Blood Transfusion Reactions: No Reported Reaction Past Psychological History: Anxiety Smoking Status: Never smoker Past Alcohol Use History: Rare Past Drug Use History: None Reported - Past Family History Mother Family Medical History: Cancer Father Family Medical History: Cancer, Myocardial Infarction ([place]) Medications and Allergies Home Medications Medication Instructions Recorded Confirmed Type Atorvastatin [Lipitor] 10 mg PO DAILY 10/25/15 12/02/19 History Metoprolol Tartrate [Lopressor] 25 mg PO DAILY 10/25/15 12/02/19 History Celecoxib [CeleBREX] 200 mg PO DAILY 01/17/19 12/02/19 History Fluticasone Nasal [place] [Flonase 2 spr EA NOSTRIL DAILY PRN 12/02/19 12/05/19 History Nasal [place]] Lansoprazole [Prevacid] 30 mg PO DAILY PRN 12/02/19 12/05/19 History Allergies Allergy/AdvReac Type Severity Reaction Status Date / Time sulfamethoxazole Allergy Itching Verified 12/05/19 11:07 [From Bactrim] trimethoprim [From Bactrim] Allergy Itching Verified 12/05/19 11:07 Physical Exam Vitals: Vital Signs Temp Pulse Resp BP Pulse Ox 12/05/19 17:02 97.3 F L 84 17 145/72 95 12/05/19 16:50 88 16 116/70 95 12/05/19 16:18 86 16 118/65 95 12/05/19 15:30 80 16 115/71 98 12/05/19 15:13 82 16 122/70 98 12/05/19 14:58 82 16 123/71 100 12/05/19 14:43 78 16 100/71 99 12/05/19 14:28 80 16 82/59 100 12/05/19 14:13 97 F L 80 16 90/60 99 12/05/19 11:20 97.7 F 62 16 131/65 98 Intake and Output 12/05/19 12/05/19 12/05/19 06:59 14:59 22:59 Intake Total 1551 600 Output Total 25 Balance 1526 600 Intake: IV 1551 600 Output: Estimated Blood Loss 25 Other: Weight 79.3 kg 79.3 kg Constitutional: No acute distress, conversant, pleasant Eyes: Anicteric sclerae, moist conjunctiva, no lid-lag Pupils equal round reactive to light ENMT: NC/AT Oropharynx clear, no erythema, or exudates Neck: Supple, FROM, no masses, or JVD No carotid bruits No thyromegaly Lungs: Clear to auscultation Clear to percussion Normal respiratory effort, no accessory muscle use Cardiovascular: Heart regular in rate and rhythm, No murmurs, gallops, or rubs No peripheral edema Abdominal: Soft Nontender, no guarding, rebound or rigidity Abdomen moving with respiration Normoactive bowel sounds No hepatomegaly, No splenomegaly No palpable mass No abdominal wall hernia noted Skin: Normal temperature, tone, texture, turgor No induration No subcutaneous nodules No rash, lesions No ulcers Extremities: No digital cyanosis No clubbing Pedal pulses intact and symmetrical Radial pulses intact and symmetrical No calf tenderness Psychiatric: Alert and oriented to person, place and time Appropriate affect fair judgement Neuro Muscles Strength 5/5 in bilateral upper extremities and left lower extremity . limited exam over right lower extremity due to recent surgery Sensation to light touch grossly present throughout Cranial nerves II-XII grossly intact No focal sensory deficits Lymphatics: no palpable cervical or supraclavicular , or inguinal lymph nodes Assessment and Plan Assessment: right total knee arthroplasty POD #zero pain control and dvt PPx per ortho history of SVT hypertension continue with metoprolol hyperlipidemia resume statin chronic GERD, resume PPI follow up CBC and BMP in AM Thank you for allowing us to participate in the care of this patient. Do not hesitate to contact us with questions. Someone can be reached from the [facility] hospitalist group at all hours of the day at [phone].
[2019-12-06] MEDS: HYDROmorphone 0.5 MG/0.5 ML SYRINGE IVP PRN ×2 (00:54→04:03)
[2019-12-06] MEDS: HYDROcodone/APAP 5-325MG 1 EACH TAB PO PRN ×3 (01:18→13:12)
[2019-12-06] MEDS: SODIUM CHLORIDE 0.9% 1,000 ML IV SCH (06:24)
--- NOTE | 2019-12-06 06:57 | P.PN ---
Progress Note - Text Progress Note Date: 12/06/19 Postoperative day # 1 status post total knee arthroplasty, under spinal anesthesia, and adductor canal catheter placed for postoperative analgesia, currently at ropivacaine 0.2% 8 mL per hour and continuous infusion, visual analogue scale is 3-4/10, patient using oral pain medication for breakthrough pain. Assessment and plan= Acute postoperative pain, adductor canal catheter for pain control, pain is well controlled we'll continue the same management.
[2019-12-06 07:55] VITALS: BP 109/64; PULSE 69; RESP 17; TEMP 98
[2019-12-06 08:13] LABS: African American GFR (CKD) >90 (>60 ml/min/1.73 sqM); Carbon Dioxide 26 mmol/L (22-30); Glucose 114 mg/dL (74-99); Non-African American GFR(CKD) 89 (>60 ml/min/1.73 sqM)
[2019-12-06 08:17] LABS: Basophils % (A) 0 %; Eosinophils % (A) 0 %; HCT 34.6 % (34.0-46.0); HGB 11.4 gm/dL (11.4-16.0); Lymphocytes # (A) 1.4 k/uL (1.0-4.8); Lymphocytes % (A) 11 %; Mean Platelet Volume 7.2; Monocytes # (A) 0.7 k/uL (0-1.0); Monocytes % (A) 6 %; Neutrophils # (A) 10.2 k/uL (1.3-7.7); Neutrophils % (A) 83 %; Platelet Count 245 k/uL (150-450); RBC 3.57 m/uL (3.80-5.40); RDW 12.4 % (11.5-15.5); WBC 12.4 k/uL (3.8-10.6)
[2019-12-06 08:19] LABS: Calcium 8.6 mg/dL (8.4-10.2); Chloride 105 mmol/L (98-107); Potassium 4.5 mmol/L (3.5-5.1)
[2019-12-06] MEDS ORDERED: MELOXICAM 7.5 MG TAB PO SCH (09:00)
[2019-12-06] MEDS ORDERED: METOPROLOL TARTRATE 25 MG TAB PO SCH (09:00)
[2019-12-06] MEDS ORDERED: ATORVASTATIN 10 MG TAB PO SCH (09:00)
[2019-12-06 09:16] LABS: Anion Gap 5 mmol/L; Blood Urea Nitrogen 16 mg/dL (7-17); Sodium 136 mmol/L (137-145)
[2019-12-06] MEDS: ENOXAPARIN 30 MG/0.3 ML SYRINGE SQ SCH (09:51)
[2019-12-06 10:22] LABS: Anisocytosis (M) Present; Poikilocytosis (M) Present
--- NOTE | 2019-12-06 11:03 | P.PN ---
Subjective Patient is doing well today. Her pain is well controlled. She was up to the bathroom earlier with no difficulty. Objective - Vital Signs Vital signs: Vital Signs Temp 98.0 F 12/06/19 07:00 Pulse 69 12/06/19 07:00 Resp 17 12/06/19 07:00 BP 109/64 12/06/19 07:00 Pulse Ox 96 12/06/19 07:00 Intake & Output 12/05/19 12/06/19 12/06/19 18:59 06:59 18:59 Intake Total 2151 300 Output Total 25 Balance 2125 300 Weight 79.3 kg Intake: IV 2151 Oral 300 Output: Estimated Blood Loss 25 Other: # Voids 1 - Exam General: The patient is awake and alert, in no distress Eye: there is normal conjunctiva bilaterally. Neck: The neck is supple, there is no JVD. Cardiovascular: Normal S1-S2, no S3-S4, no murmurs. Respiratory: Lungs clear to auscultation bilaterally Gastrointestinal: Abdomen is soft, nontender Musculoskeletal: There is no pedal edema. Neurological:. Speech is normal. Skin: Skin is warm and dry - Labs CBC & Chem 7: 12/06/19 07:04 12/06/19 07:04 Labs: Abnormal Lab Results - Last 24 Hours (Table) 12/06/19 12/06/19 Range/Units 07:04 07:04 WBC 12.4 H (3.8-10.6) k/uL RBC 3.57 L (3.80-5.40) m/uL Neutrophils # 10.2 H (1.3-7.7) k/uL Sodium 136 L (137-145) mmol/L Glucose 114 H (74-99) mg/dL Assessment and Plan Assessment: right total knee arthroplasty POD #1 pain control and dvt PPx per ortho history of SVT hypertension continue with metoprolol hyperlipidemia resume statin chronic GERD, resume PPI Mild leukocytosis, Most likely reactive no evidence of infection Discharge planning per primary team
--- NOTE | 2019-12-06 11:50 | P.PN ---
Subjective Progress Note Date: 12/06/19 Principal diagnosis: Status post right total knee arthroplasty patient was evaluated at bedside, she is resting in her hospital chair. She's done well with physical therapy at this time. Her pain is controlled currently. She denies any chest pain, shortness of breath, fever or chills. Objective - Vital Signs Vital signs: Vital Signs Temp 98.0 F 12/06/19 07:00 Pulse 69 12/06/19 07:00 Resp 17 12/06/19 07:00 BP 109/64 12/06/19 07:00 Pulse Ox 96 12/06/19 07:00 Intake & Output 12/05/19 12/06/19 12/06/19 18:59 06:59 18:59 Intake Total 2151 300 Output Total 25 Balance 2126 300 Weight 79.3 kg Intake: IV 2151 Oral 300 Output: Estimated Blood Loss 25 Other: # Voids 1 - Exam Right lower extremity: Incision is clean, dry, and intact. The exofin fusion tape is in good condition. There is minimal soft tissue swelling and ecchymosis surrounding the medial and lateral aspects of the incision. Calf is soft, no tenderness with palpation. Plantar flexion, dorsiflexion, EHL, FHL are intact. Sensory exam to light touch throughout the extremity is intact, dorsal pedis pulses 2+. - Labs CBC & Chem 7: 12/06/19 07:04 12/06/19 07:04 Labs: Abnormal Lab Results - Last 24 Hours (Table) 12/06/19 12/06/19 Range/Units 07:04 07:04 WBC 12.4 H (3.8-10.6) k/uL RBC 3.57 L (3.80-5.40) m/uL Neutrophils # 10.2 H (1.3-7.7) k/uL Sodium 136 L (137-145) mmol/L Glucose 114 H (74-99) mg/dL Assessment and Plan Assessment: status post right total knee arthroplasty Plan: Pain control, plan for discharge home on oral medication GI and DVT prophylaxis, aspirin 81 mg twice a day Wound care instructions were discussed Home physical therapy and nursing after discharge Medical recommendations Plan for discharge home today Time with Patient: Less than 30
--- NOTE | 2019-12-06 11:53 | P.DS ---
Providers Date of admission: 12/05/2019 Expected date of discharge: 12/06/19 Attending physician: Abner Chicas Consults: 12/05/19 14:02 Consult Physician Routine Consulting Provider: Julianna Mcfarland Consult Reason/Comments: Medical management Do you want consulting provider notified?: Yes Primary care physician: Joe [facility] Course: Date of admission: 12/05/2019 Date of discharge: 12/06/2019 Admission diagnosis: Status post right total knee arthroplasty Discharge diagnosis: Same Attending physician: Dr. Chicas Surgical procedures: Right total knee arthroplasty Brief history: Patient is a 74-year-old female with a history of progressive primary right knee osteoarthritis. At this point patient has failed conservative treatment measures and has opted to proceed with a right total knee arthroplasty. Hospital course: Details of patient's surgery can be found in operative report. Patient tolerated the procedure well and was subsequently transported to orthopedic floor. Patient's orthopeidc and medical care was provided daily. Patient had daily laboratory tests performed for evaluation of overall blood counts. Patient had daily physical therapy to include strengthening range of motion as well as education with walker ambulation. Patient had daily CPM usage as part of their physical therapy program. Patient was treated with Lovenox for their postoperative DVT prophylaxis during their inpatient stay. Patient was noted to have a relatively uneventful postoperative course. Patient reported satisfactory pain control with oral pain medications by postoperative day 0. Patient showed satisfactory progress with physical therapy. Patient moved steadily through the program and had no difficulty meeting the goals by postoperative day 1. Given patient's otherwise satisfactory course and having met physical therapy goals, plan is to discharge patient home on postoperative day 1. Discharge condition/disposition: Patient will be discharged home in stable condition. Discharge medications: Instructions are given on resumption of patient's normal daily medications per primary care recommendation, in addition patient will be prescribed [place] 5 mg/325 mg, Colace 100 mg, aspirin 81 mg, tramadol 50 mg. Discharge instructions: 1. Wound care and infection precautions, keep incision dry and covered while showering, no lotions, creams, moisturizers. No soaking, tubs, pools, hottubs. Do not scrub over the incision. 2. Weight-bear as tolerated with walker / cane until follow-up. 3. Ice and elevate when necessary. Do not exceed 20 minutes per hour with ice pack. 4. Utilize compression sleeve until seen at first follow up appointment. 5. Visiting nursing care. 6. Home physical therapy including home CPM. 7. Pain meds and anticoagulants per prescription. 8. Pain medication has potential to cause constipation. Increase oral fluid and fiber intake. Contact primary care provider if you have not had a bowel movement within 48 hours after discharge 9. No anti-inflammatory medication until discussed at first post operative visit, this including Motrin, Aleve, Mobic, Diclofenac. 10. Follow up in office at 2 weeks postop with Epifanio Zapien PA-C 11. Follow up with your primary care doctor 7-10 days after discharge. 12. Contact [facility] with any questions, . Procedures: Right total knee arthroplasty Patient Condition at Discharge: Good Plan - Discharge Summary Discharge Rx Participant: Yes New Discharge Prescriptions: New Aspirin [Adult Low Dose Aspirin EC] 81 mg PO BID #60 tablet. Docusate [Colace] 100 mg PO DAILY #30 capsule Hydrocodone/Acetaminophen [[place] 5-325] 1 - 2 each PO Q6HR PRN #56 tab PRN Reason: Pain traMADol HCl [Ultram] 50 mg PO Q6H PRN #28 tab PRN Reason: Pain No Action Atorvastatin [Lipitor] 10 mg PO DAILY Metoprolol Tartrate [Lopressor] 25 mg PO DAILY Celecoxib [CeleBREX] 200 mg PO DAILY Lansoprazole [Prevacid] 30 mg PO DAILY PRN PRN Reason: Heartburn Fluticasone Nasal [place] [Flonase Nasal [place]] 2 spr EA NOSTRIL DAILY PRN PRN Reason: allergies Discharge Medication List Atorvastatin [Lipitor] 10 mg PO DAILY 10/25/15 [History] Metoprolol Tartrate [Lopressor] 25 mg PO DAILY 10/25/15 [History] Celecoxib [CeleBREX] 200 mg PO DAILY 01/17/19 [History] Fluticasone Nasal [place] [Flonase Nasal [place]] 2 spr EA NOSTRIL DAILY PRN 12/02/19 [History] Lansoprazole [Prevacid] 30 mg PO DAILY PRN 12/02/19 [History] Aspirin [Adult Low Dose Aspirin EC] 81 mg PO BID #60 tablet. 12/06/19 [Rx] Docusate [Colace] 100 mg PO DAILY #30 capsule 12/06/19 [Rx] Hydrocodone/Acetaminophen [[place] 5-325] 1 - 2 each PO Q6HR PRN #56 tab 12/06/19 [Rx] traMADol HCl [Ultram] 50 mg PO Q6H PRN #28 tab 12/06/19 [Rx] Follow up Appointment(s)/Referral(s): [facility], [NON-STAFF] - Phillip Zapien PAC [PHYSICIAN CAMPUS MONITOR] - 12/21/19 2:10 pm Joe Euceda MD [Primary Care Provider] - 12/19/19 11:15 am Activity/Diet/Wound Care/Special Instructions: Orthopedic Discharge Instructions: 1. Wound care and infection precautions, keep incision dry and covered while showering, no lotions, creams, moisturizers. No soaking, pools, hot tubs. Do not scrub over incision. 2. Weight-bear as tolerated with walker / cane until follow-up. 3. Ice and elevate when necessary. Do not exceed 20 minutes per hour with ice pack. 4. Utilize compression sleeve until seen at first follow up appointment. 5. Pain meds and anticoagulants per prescription. 6. Pain medication has potential to cause constipation. Increase oral fluid and fiber intake. Contact primary care provider if you have not had a bowel movement within 48 hours after discharge. 7. No anti-inflammatory medication until discussed at first post operative visit, this including Motrin, Aleve, Mobic, Diclofenac. 8. Follow up in office at 2 weeks postop with Epifanio Zapien PA-C 9. Follow up with your primary care doctor 7-10 days after discharge. 10. Contact [facility] with any questions, [phone]. 11. *Please call [facility] once home to arrange the delivery of the continuous passive motion (CPM) machine: [phone]* Discharge Disposition: HOME WITH HOME HEALTH SERVICES
== END 2019-12-06 13:33 | disposition home health service (06) ==
LOC: OR 10:58 → 4SSUR 14:00 → OR 12-06 10:28 → 4SSUR 12-06 11:29
PROVIDERS: ADMIT Orthopaedic Surgery; ATTEND Orthopaedic Surgery
DX: M17.0 Bilateral primary osteoarthritis of knee (principal); I10 Essential (primary) hypertension; E78.5 Hyperlipidemia, unspecified; K21.9 Gastro-esophageal reflux disease without esophagitis; D72.829 Elevated white blood cell count, unspecified; F41.9 Anxiety disorder, unspecified; Z88.2 Allergy status to sulfonamides; Z79.899 Other long term (current) drug therapy; Z79.890 Hormone replacement therapy; Z79.1 Long term (current) use of non-steroidal anti-inflammatories (NSAID); Z96.643 Presence of artificial hip joint, bilateral; Z98.890 Other specified postprocedural states; Z90.49 Acquired absence of other specified parts of digestive tract; Z86.718 Personal history of other venous thrombosis and embolism; Z86.69 Personal history of other diseases of the nervous system and sense organs; Z86.711 Personal history of pulmonary embolism; Z85.828 Personal history of other malignant neoplasm of skin; Z86.79 Personal history of other diseases of the circulatory system; Z80.9 Family history of malignant neoplasm, unspecified; Z82.49 Family history of ischemic heart disease and other diseases of the circulatory system
CPT/HCPCS: 97110; 97161; 64448; 76942; 80048; 85025; 88300; 73560; 27447; G0378; C1776; C1713; J2250; J0171; J1100; J0690 ×2; J2405; J3010; J1885; J1650 ×2; J2795 ×2; J0735; J1170 ×2

== ENCOUNTER → 2020-01-02 | Outpatient (CLI) | payer MEDICARE ==
--- NOTE | 2020-01-04 10:34 | MM ---
Reason for exam: screening (asymptomatic). Last mammogram was performed 1 year ago. History: Patient is postmenopausal, history of other cancer, and is nulliparous. Family history of breast cancer in mother at age 47. Took hormonal contraceptives for 1 year. Physical Findings: A clinical breast exam by your physician is recommended on an annual basis and results should be correlated with mammographic findings. MG 3D Screening Mammo W/Cad Bilateral CC and MLO view(s) were taken. Prior study comparison: December 30, 2018, bilateral MG 3d screening mammo w/cad. December 21, 2017, mammogram. Previous mammotome biopsy in the right breast. Asymmetric breast tissue greater in the right breast. No significant changes when compared with prior studies. ASSESSMENT: Benign, BI-RAD 2 RECOMMENDATION: Routine screening mammogram of both breasts in 1 year.
== END | disposition home or self-care (01) ==
LOC: RADMAMWWP 09:48
PROVIDERS: ATTEND Surgery
DX: Z12.31 Encounter for screening mammogram for malignant neoplasm of breast (principal)
CPT/HCPCS: 77063; 77067

== ENCOUNTER → 2020-04-17 | Outpatient (CLI) | payer MEDICARE | END | disposition home or self-care (01) | LOC: LABPAT 09:15 | PROVIDERS: ATTEND Orthopaedic Surgery | DX: Z01.812 Encounter for preprocedural laboratory examination (principal); M17.12 Unilateral primary osteoarthritis, left knee; Z22.322 Carrier or suspected carrier of Methicillin resistant Staphylococcus aureus | CPT/HCPCS: 87070 ==

== ENCOUNTER 2020-05-10 08:06 | Day surgery (SDC) | payer MEDICARE ==
[2020-05-03 15:53] VITALS: BMI 24.5
--- NOTE | 2020-05-09 20:13 | HP ---
HISTORY AND PHYSICAL DATE OF SURGERY: 05/10/2020 Nay Ferrara is a 74-year-old patient seen with symptomatic left knee osteoarthritis. We discussed options for treatment. She elected to proceed with left total knee arthroplasty. Consent was obtained. Previous clearance had been provided by Dr. Euceda's office. PAST MEDICAL HISTORY: Hyperlipidemia, hypertension, gastroesophageal reflux disease. PAST SURGICAL HISTORY: Right total hip arthroplasty, right total knee arthroplasty, appendectomy. DAILY MEDICATIONS: Atorvastatin, calcium, omeprazole, metoprolol, tramadol. ALLERGIES: BACTRIM. SOCIAL HISTORY: She denies tobacco use. PHYSICAL EXAMINATION: Evaluation of the left knee range of motion 0-120. Tenderness medial joint line. Crepitus medial patellofemoral compartments on range of motion. Pain with patellofemoral compression. Ligaments stable. Hip rotation without pain. Distal neurovascular exam intact. RADIOGRAPHS: Left knee radiographs reveal severe osteoarthritic changes. IMPRESSION: 1. Left knee osteoarthritis. 2. Hypertension. 3. Gastroesophageal reflux disease. PLAN: Left total knee arthroplasty. MMODL / IJN: [id number] /
[~2020-05-10 08:06] MED LIST changes: +DEXAMETHASONE SOD PHOSPHATE 4 MG/ML 1 ML VIAL IV ONE; +LIDOCAINE 1% (10MG/ML) FOR IV START INTRADERMA PRN; +MIDAZOLAM 2 MG/2 ML VIAL IV PRN; +ONDANSETRON 4 MG/2 ML VIAL IVP ONE; +ROPIVACAINE 246.25 MG, EPINEPHrine 0.5 MG, KETOROLAC 30 MG, cloNIDine HCL/PF 80 MCG, WA... MISCELLANE ONE
[2020-05-10] MEDS: LACTATED RINGERS 1,000 ML IV SCH ×2 (08:56→17:46)
[2020-05-10] MEDS ORDERED: MIDAZOLAM 2 MG/2 ML VIAL IVP ONE (09:14)
[2020-05-10] MEDS ORDERED: SODIUM CHLORIDE 0.9% 100 ML BAG ONE (10:02)
[2020-05-10] MEDS ORDERED: PROPOFOL 10 MG/ML 20 ML VIAL IV ONE (10:02)
[2020-05-10] MEDS ORDERED: TRANEXAMIC ACID 1,000 MG/10 ML VIAL ONE (10:02)
[2020-05-10] MEDS ORDERED: LIDOCAINE 1% INJ 10MG/ML (20 ML MDV) ONE (10:02)
[2020-05-10] MEDS ORDERED: MIDAZOLAM 2 MG/2 ML VIAL ONE (10:02)
[2020-05-10] MEDS ORDERED: fentaNYL (PF) 50 MCG/ML 2 ML AMP ONE (10:02)
[2020-05-10] MEDS ORDERED: ROPIVACAINE 0.2%-NS ON-Q PUMP 1,090 MG, EMPTY PAIN BALL 1 EACH MISCELLANE PRN (10:07)
--- NOTE | 2020-05-10 10:09 | P.ANPRN ---
Procedure Note - Anesthesia - Nerve Block Performed Left Adductor Canal Infusion Time Out Performed: Yes Date of Procedure: 05/10/20 Procedure Start Time: :13 Procedure Stop Time: : Location of Patient: PreOp Indication: Acute Post-Operative Pain, Requested by Surgeon Sedation Type: Sedate with meaningful contact maintained Preparation: Sterile Prep, Sterile Dressing Position: Supine Catheter: Indwelling Needle Types: [place] Needle Gauge: 21 Ultrasound used to visualize needle placement: Yes Ultrasound used to observe medication spread: Yes Blood Aspirated: No Pain Paresthesia on Injection Noted: No Resistance on Injection: Normal Image Stored and Saved: Yes Events: Uneventful and Well Tolerated (ropi .5% 20cc plus dexamethasone 4mg)
[2020-05-10] MEDS ORDERED: LACTATED RINGERS 1,000 ML IV ONE ×2 (11:14→14:00)
--- NOTE | 2020-05-10 11:43 | P.OP ---
Date of Procedure: 05/10/20 Preoperative Diagnosis: Left knee osteoarthritis Postoperative Diagnosis: Left knee osteoarthritis Procedure(s) Performed: Left total knee arthroplasty Implants: 1. Depuy attune size 6 narrow left cruciate retaining cemented femur 2. Depuy attune size 5 fixed bearing cemented tibial baseplate 3. Depuy attune size 6 fixed bearing cruciate retaining 70 mm polyethylene tibial insert 4. Depuy attune 35 mm all polyethylene cemented patella Anesthesia: regional (Adductor canal catheter), local, spinal Surgeon: Abner Chicas Snath Handle Assembler #1: Phillip Zapien Estimated Blood Loss (ml): 45 Pathology: other (Bone) Condition: stable Disposition: PACU Indications for Procedure: 74-year-old patient seen with symptomatic left knee osteoarthritis. After treatment options were discussed, she elected to proceed with total knee arthroplasty. Operative Findings: See description of procedure Description of Procedure: Patient was taken to the operative suite after having an adductor canal catheter placed by the department of anesthesia. Patient underwent a spinal anesthetic by the department of anesthesia. Patient was given preoperative IV intake antibiotics and TXA. A well-padded tourniquet was placed about the left lower extremity. The lower extremity was then prepped and draped in the normal sterile orthopedic fashion. The extremity was elevated, a tourniquet was insufflated to 300. A standard anterior incision was made sharply through skin. Dissection was taken down through the subcutaneous soft tissues down to the extensor mechanism. A medial arthrotomy was performed, patella was everted and knee was flexed. There was advanced osteoarthritis noted. I introduced my distal intramedullary femoral drill. I then introduced the distal femoral cutting jig. Epifanio HARLEY secured the cutting jig with 2 pins. I held retractors in position while Epifanio HARLEY performed the distal femoral resection through the guide area we now removed her distal femoral cutting guide. We now placed our 4-in-1 femoral cutting block and positioned and it was secured with 2 pins by Epifanio HARLEY while I held the block in position. The distal femoral finishing was now completed. A proximal tibial cutting guide was positioned. I held the guide in the appropriate position with both hands well Epifanio HARLEY inserted stabilizing pins into the guide. Proximal tibial cut was made. We now placed a trial femoral component into position, along with an appropriate size tibial tray and insert. We now took the knee through range of motion and had full extension good flexion and good overall soft tissue balance noted. The patella was everted and stabilized with 2 towel clips held by Epifanio HARLEY while I performed a flush with patellar quad tendon utilizing a fresh sawblade. We templated the patella, appropriate drill holes were made. An appropriate trial patella was positioned, knee was taken through full range of motion with the patella tracking very nicely. The trial patella was removed. Drill holes were made through the femoral component. All trial components were removed after marking off the appropriate rotation of the tibia. Retractors were now positioned along the proximal tibia. An appropriate keel punch was made with the appropriate size tibial guide by myself on Epifanio HARLEY assisted by holding retractors. At this point appropriate size implants were chosen and opened. The joint was irrigated copiously with pulse lavage mechanical irrigation. The posterior capsule was infiltrated with local analgesic. The wound was irrigated with pulse lavage mechanical irrigation. We mixed antibiotic methylmethacrylate. We placed the knee into flexion. We placed multiple retractors assisted by Epifanio HARLEY to expose the proximal tibia. Once the methyl methacrylate was ready, the tibial component was cemented into place removing any excess methylmethacrylate form by both myself and Epifanio HARLEY. The femoral component was cemented into place removing the removing any excess methylmethacrylate performed by both myself and Epifanio HARLEY. We then inserted the appropriate size polyethylene tibial insert. We made sure that it was locked into position. We took the knee into full extension, and then back in a flexion making sure we had removed any excess methylmethacrylate. The patellar component was then cemented down and secured with clamp. Excess methylmethacrylate removed. We kept the knee in full extension, patellar clamp in position until methylmethacrylate had hardened. Once it had hardened the pat ellar clamp was removed. The knee was taken through full range of motion. The patella tracked nicely. There was good soft tissue balancing. The tourniquet was now released. Additional hemostasis was achieved via electrocautery. A second gram of TXA was given. The wound again was irrigated with pulse lavage mechanical irrigation. The superficial soft tissues were infiltrated local analgesic. The extensor mechanism was repaired with Vicryl. We checked the repair with range of motion and it was stable. The subcutaneous soft tissues were repaired with Vicryl in layers. The skin was approximated with pernio/Dermabond. Sterile dressings were applied followed by loose web roll and Nahid bandage. The patient was transferred to a bed, and taken to recovery in stable and satisfactory condition. Epifanio HARLEY assisted with this complex procedure.
[2020-05-10] MEDS ORDERED: HYDROmorphone 0.5 MG/0.5 ML SYRINGE IVP PRN ×2 (11:44)
[2020-05-10] MEDS ORDERED: ONDANSETRON 4 MG/2 ML VIAL IVP PRN (11:44)
[2020-05-10] MEDS ORDERED: HYDROmorphone 0.2 MG/1 ML SYRINGE IVP PRN (11:44)
[2020-05-10] MEDS ORDERED: NALOXONE 0.4 MG/ML 1 ML VIAL IV PRN (11:44)
[2020-05-10] MEDS ORDERED: HYDROcodone/APAP 5-325MG 1 EACH TAB PO PRN ×2 (11:44)
[2020-05-10] MEDS: HYDROmorphone 0.5 MG/0.5 ML SYRINGE IVP PRN ×2 (13:07→13:36)
--- NOTE | 2020-05-10 13:52 | XR ---
EXAMINATION TYPE: XR knee limited LT DATE OF EXAM: 05/10/2020 COMPARISON: None HISTORY: Post knee replaced TECHNIQUE: Two-view left FINDINGS: Tibial and femoral components of in place. No acute fractures or dislocations are evident. Soft tissue postsurgical changes are evident. IMPRESSION: 1. No acute fractures post knee replacement.
[2020-05-10] MEDS: ENOXAPARIN 30 MG/0.3 ML SYRINGE SQ SCH (20:31)
[2020-05-10] MEDS ORDERED: SENNOSIDES-DOCUSATE SODIUM 1 EACH TAB PO SCH (21:00)
[2020-05-10] MEDS ORDERED: PANTOPRAZOLE 40 MG TABLET PO PRN (23:41)
[2020-05-10] MEDS ORDERED: FLUTICASONE 50MCG/SPRAY NASAL 16GM EA NOSTRIL PRN (23:41)
--- NOTE | 2020-05-10 23:42 | P.CONS ---
History of Present Illness - Reason for Consult Consult date: 05/10/20 - History of Present Illness Patient is a 74-year-old female with a PMH of hyperlipidemia who was admitted for an elective left total knee replacement. The patient underwent the procedure earlier today with no immediate postoperative complications. She was seen postoperatively on the surgical unit. She reported excellent control of her pain at the time of interview, rated at a 0 out of 10. She had been up and out of bed and had used the restroom and passed urine and gas. She had not had a bowel movement yet. She denied any additional complaints. She denied weakness, numbness, tingling. She denied cough, fever, chills, chest pain, or shortness of breath. Denied dysuria, abdominal pain, nausea, or vomiting. Review of Systems Pertinent positives and negatives as discussed in HPI, a complete review of systems was performed and all other systems are negative. 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 Macular degeneration. Mild memory impairment, patient had to ask spouse multiple questions regarding her health hx. Hx Fall, landing on knees 04/10/20, XR nl. History of Any Multi-Drug Resistant Organisms: None Reported Past Surgical History: Appendectomy, Breast Surgery, Cardiac Ablation, Hysterectomy, Joint Replacement Additional Past Surgical History / Comment(s): Anterior Total Rt Hip, Total Left hip sx. Total Rt knee 12/06/19. Rt breast biopsies. Past Anesthesia/Blood Transfusion Reactions: No Reported Reaction Past Psychological History: Anxiety Additional Psychological History / Comment(s): minor anxiety Smoking Status: Never smoker Past Alcohol Use History: Rare Past Drug Use History: None Reported - Past Family History Mother Family Medical History: Cancer Father Family Medical History: Cancer, Myocardial Infarction ([place]) Medications and Allergies Home Medications Medication Instructions Recorded Confirmed Type Atorvastatin [Lipitor] 10 mg PO DAILY 10/25/15 05/03/20 History Celecoxib [CeleBREX] 200 mg PO DAILY 01/17/19 05/03/20 History Fluticasone Nasal [place] [Flonase 2 spr EA NOSTRIL DAILY PRN 12/02/19 05/03/20 History Nasal [place]] Lansoprazole [Prevacid] 30 mg PO DAILY PRN 12/02/19 05/03/20 History Calcium Carbonate/Vitamin D3 2 each PO DAILY 05/03/20 05/03/20 History [Calcium 600-Vit D3 400 Tablet] Lutein 20 mg PO DAILY 05/03/20 05/03/20 History Vitamin A 2,400 mcg PO DAILY 05/03/20 05/03/20 History Allergies Allergy/AdvReac Type Severity Reaction Status Date / Time sulfamethoxazole Allergy Itching Verified 05/10/20 08:38 [From Bactrim] trimethoprim [From Bactrim] Allergy Itching Verified 05/10/20 08:38 Physical Exam Vitals: Vital Signs Temp Pulse Resp BP Pulse Ox 05/10/20 18:44 97.8 F 97 16 100/63 93 L 05/10/20 16:10 98.5 F 92 20 116/61 91 L 05/10/20 16:00 16 05/10/20 14:50 94 16 114/61 93 L 05/10/20 14:20 98 16 120/67 95 05/10/20 13:50 96 16 114/68 99 05/10/20 13:20 91 14 110/64 98 05/10/20 13:05 94 16 112/59 97 05/10/20 12:50 89 14 112/62 99 05/10/20 12:35 92 16 103/69 95 05/10/20 12:20 98.6 F 100 16 100/62 97 05/10/20 09:30 78 16 130/63 99 05/10/20 08:32 98.1 F 77 16 150/64 97 Intake and Output 05/10/20 05/10/20 05/11/20 14:59 22:59 06:59 Intake Total 2049 Output Total 45 Balance 2004 Intake: IV 2049 Output: Estimated Blood Loss 45 Other: Weight 74.1 kg 74.1 kg General: non toxic, no distress, appears at stated age, normal weight Derm: no unusual rashes/lesions no unusual ecchymoses, warm, dry Head: atraumatic, normocephalic, symmetric Eyes: EOMI, no lid lag, anicteric sclera, pupils equal round reactive to light ENT: Nose and ears atraumatic, no thrush, no pharyngeal erythema Neck: No thyromegaly, no cervical lymphadenopathy, trachea midline, supple Mouth: no lip lesion, mucus membranes moist Cardiovascular: S1S2 reg, no murmur, positive posterior tibial pulse bilateral, no edema, capillary refill less than 2 seconds Lungs: CTA bilateral, no rhonchi, no rales , no accessory muscle use Abdominal: soft, nontender to palpation, no guarding, no appreciable organomegaly, normal bowel sounds Ext: no gross muscle atrophy, left knee postsurgical with a dressing and Nahid bandage in place, muscle strength 5 out of 5 in all extremities grossly except the left lower extremity due to pain, no contractures, Neuro: CN II-XI grossly intact, light touch intact all 4 extremities, finger to nose within normal limits, Psych: Alert, oriented, appropriate affect Results CBC & Chem 7: 05/10/20 08:40 Assessment and Plan Plan: Hyperlipidemia -Continue home Lipitor Status post left total knee replacement -Management including pain control as per the surgical service We appreciate this opportunity to be involved in this patient's care. We will follow the patient with you. For any further questions, please not hesitate to contact the sound inpatient team.
[2020-05-11] MEDS: LACTATED RINGERS 1,000 ML IV SCH ×2 (03:58)
[2020-05-11 07:13] VITALS: RESP 22; TEMP 98
--- NOTE | 2020-05-11 07:17 | P.PN ---
Progress Note - Text 05/11/20 702am 74-year-old female status post total knee replacement by Dr. Chicas. Patient seen and evaluated this morning for postop pain control with solution running at 8 mL an hour. Patient has a VAS of 1. Continue On-Q pump infusion
[2020-05-11 08:01] LABS: Basophils % (A) 0 %; Eosinophils % (A) 0 %; HCT 36.2 % (34.0-46.0); HGB 11.9 gm/dL (11.4-16.0); Lymphocytes # (A) 1.6 k/uL (1.0-4.8); Lymphocytes % (A) 14 %; MCH 30.6 pg (25.0-35.0); MCHC 32.8 g/dL (31.0-37.0); MCV 93.4 fL (80.0-100.0); Mean Platelet Volume 7.2; Monocytes # (A) 0.6 k/uL (0-1.0); Monocytes % (A) 5 %; Neutrophils # (A) 9.5 k/uL (1.3-7.7); Neutrophils % (A) 80 %; Platelet Count 192 k/uL (150-450); RBC 3.87 m/uL (3.80-5.40); RDW 13.5 % (11.5-15.5); WBC 11.9 k/uL (3.8-10.6)
[2020-05-11] MEDS ORDERED: ATORVASTATIN 10 MG TAB PO SCH (09:00)
[2020-05-11] MEDS ORDERED: CALCIUM CARB-VIT D 500MG-200UN 1 EACH TAB PO SCH (09:00)
[2020-05-11] MEDS: ENOXAPARIN 30 MG/0.3 ML SYRINGE SQ SCH (09:03)
--- NOTE | 2020-05-11 09:55 | P.PN ---
Subjective Progress Note Date: 05/11/20 Patient is doing well today. She was up in the chair when I saw her. She does not have any complaints. Objective - Vital Signs Vital signs: Vital Signs Temp 98 F 05/11/20 07:12 Pulse 67 05/11/20 07:12 Resp 22 05/11/20 07:12 BP 101/59 05/11/20 07:12 Pulse Ox 93 L 05/11/20 07:12 Intake & Output 05/10/20 05/11/20 05/11/20 18:59 06:59 18:59 Intake Total 2049 Output Total 45 Balance 2004 Weight 74.1 kg Intake: IV 2049 Output: Estimated Blood Loss 45 Other: # Voids 2 - Exam General: The patient is awake and alert, in no distress Eye: there is normal conjunctiva bilaterally. Neck: The neck is supple, there is no JVD. Cardiovascular: Normal S1-S2, no S3-S4, no murmurs. Respiratory: Lungs clear to auscultation bilaterally Gastrointestinal: Abdomen is soft, nontender Musculoskeletal: There is no pedal edema. Neurological:. Speech is normal. Skin: Skin is warm and dry - Labs CBC & Chem 7: 05/11/20 07:29 05/10/20 08:40 Labs: Abnormal Lab Results - Last 24 Hours (Table) 05/11/20 Range/Units 07:29 WBC 11.9 H (3.8-10.6) k/uL Neutrophils # 9.5 H (1.3-7.7) k/uL Assessment and Plan Assessment: 1. Postoperative day #1 status post total left knee arthroplasty: postoperative care, pain control, and DVT prophylaxis per orthopedic protocol. 2. Hyperlipidemia on Lipitor Today, I reviewed her medication list and lab work results. Patient is medically cleared for discharge awaiting primary team. We will sign off thank you for the consultation.
--- NOTE | 2020-05-11 10:17 | P.PN ---
Subjective Progress Note Date: 05/11/20 Principal diagnosis: Status post left total knee arthroplasty patient is examined today at bedside, she's resting in her hospital chair. She's done very well with physical therapy. She is having no having avoiding issues. Her pain is well-controlled. Currently denies any headaches, lightheadedness, chest pain, shortness of breath, nausea vomiting, fever chills. Objective - Vital Signs Vital signs: Vital Signs Temp 98 F 05/11/20 07:12 Pulse 67 05/11/20 07:12 Resp 22 05/11/20 07:12 BP 101/59 05/11/20 07:12 Pulse Ox 93 L 05/11/20 07:12 Intake & Output 05/10/20 05/11/20 05/11/20 18:59 06:59 18:59 Intake Total 2049 Output Total 45 Balance 2004 Weight 74.1 kg Intake: IV 2049 Output: Estimated Blood Loss 45 Other: # Voids 2 - Exam Left lower extremity: Incision is clean, dry, and intact. The foam dressing is in good condition. There is minimal soft tissue swelling and ecchymosis surrounding the medial and lateral aspects of the incision. Calf is soft, no tenderness with palpation. P lantar flexion, dorsiflexion, EHL, FHL are intact. Sensory exam to light touch throughout the extremity is intact, dorsal pedis pulses 2+. - Labs CBC & Chem 7: 05/11/20 07:29 05/10/20 08:40 Labs: Abnormal Lab Results - Last 24 Hours (Table) 05/11/20 Range/Units 07:29 WBC 11.9 H (3.8-10.6) k/uL Neutrophils # 9.5 H (1.3-7.7) k/uL Assessment and Plan Assessment: Postop left total knee arthroplasty Plan: Pain control, plan for discharge home on [place] 5 mg/325 mg DVT prophylaxis, aspirin 81 mg twice a day for 30 days Wound care instructions were discussed Home health care after discharge Medical recommendations Plan for discharge home today Time with Patient: Less than 30
--- NOTE | 2020-05-11 10:23 | P.DS ---
Providers Date of admission: 05/10/2020 Expected date of discharge: 05/11/20 Attending physician: Abner Chicas Consults: 05/10/20 11:44 Consult Physician Routine Consulting Provider: Julianna Mcfarland Consult Reason/Comments: Medical management Do you want consulting provider notified?: Yes Primary care physician: Tee Lovett [facility] Hospital Course: Date of admission: 05/10/2020 Date of discharge: 05/11/2020 Admission diagnosis: Status post left total knee arthroplasty Discharge diagnosis: Same Attending physician: Dr. Chicas Surgical procedures: Left total knee arthroplasty Brief history: Patient is a 74-year-old female with a history of regressive primary left knee osteoarthritis. At this point patient has failed conservative treatment measures and has opted to proceed with a elective left total knee arthroplasty. Hospital course: Details of patient's surgery can be found in operative report. Patient tolerated the procedure well and was subsequently transported to orthopedic floor. Patient's orthopeidc and medical care was provided daily. Patient had daily laboratory tests performed for evaluation of overall blood counts. Patient had daily physical therapy to include strengthening range of motion as well as education with walker ambulation. Patient was treated with Lovenox for their postoperative DVT prophylaxis during their inpatient stay. Patient was noted to have a relatively uneventful postoperative course. Patient reported satisfactory pain control with oral pain medications by postoperative day 0. Patient showed satisfactory progress with physical therapy. Patient moved steadily through the program and had no difficulty meeting the goals by postoperative day 1. Given patient's otherwise satisfactory course and having met physical therapy goals, plan is to discharge patient home on postoperative day 1. Discharge condition/disposition: Patient will be discharged home in stable condition. Discharge medications: Instructions are given on resumption of patient's normal daily medications per primary care recommendation, in addition patient will be prescribed [place] 5 mg/325 mg, Colace 100 mg, aspirin 81 mg Discharge instructions: 1. Wound care and infection precautions, keep incision dry and covered while showering, no lotions, creams, moisturizers. No soaking, tubs, pools, hottubs. Do not scrub over the incision. Okay to remove foam dressing on 05/20/2020 2. Weight-bear as tolerated with walker / cane until follow-up. 3. Ice and elevate when necessary. Do not exceed 20 minutes per hour with ice pack. 4. Utilize compression sleeve until seen at first follow up appointment. 5. Visiting nursing care. 6. Home physical therapy including home CPM. 7. Pain meds and anticoagulants per prescription. 8. Pain medication has potential to cause constipation. Increase oral fluid and fiber intake. Contact primary care provider if you have not had a bowel movement within 48 hours after discharge 9. No anti-inflammatory medication until discussed at first post operative visit, this including Motrin, Aleve, Mobic, Diclofenac. 10. Follow up in office at 2 weeks postop with Epifanio Zapien PA-C 11. Follow up with your primary care doctor 7-10 days after discharge. 12. Contact [facility] with any questions, . Procedures: Left total knee arthroplasty Patient Condition at Discharge: Good Plan - Discharge Summary Discharge Rx Participant: Yes New Discharge Prescriptions: New Aspirin [Adult Low Dose Aspirin EC] 81 mg PO BID #60 tablet. Docusate [Colace] 100 mg PO DAILY #30 capsule Hydrocodone/Acetaminophen [[place] 5-325] 1 - 2 each PO Q6HR PRN #42 tab PRN Reason: Pain No Action Atorvastatin [Lipitor] 10 mg PO DAILY Celecoxib [CeleBREX] 200 mg PO DAILY Lansoprazole [Prevacid] 30 mg PO DAILY PRN PRN Reason: Heartburn Fluticasone Nasal [place] [Flonase Nasal [place]] 2 spr EA NOSTRIL DAILY PRN PRN Reason: allergies Vitamin A 2,400 mcg PO DAILY Lutein 20 mg PO DAILY Calcium Carbonate/Vitamin D3 [Calcium 600-Vit D3 400 Tablet] 2 each PO DAILY Discharge Medication List Atorvastatin [Lipitor] 10 mg PO DAILY 10/25/15 [History] Celecoxib [CeleBREX] 200 mg PO DAILY 01/17/19 [History] Fluticasone Nasal [place] [Flonase Nasal [place]] 2 spr EA NOSTRIL DAILY PRN 12/02/19 [History] Lansoprazole [Prevacid] 30 mg PO DAILY PRN 12/02/19 [History] Calcium Carbonate/Vitamin D3 [Calcium 600-Vit D3 400 Tablet] 2 each PO DAILY 05/03/20 [History] Lutein 20 mg PO DAILY 05/03/20 [History] Vitamin A 2,400 mcg PO DAILY 05/03/20 [History] Aspirin [Adult Low Dose Aspirin EC] 81 mg PO BID #60 tablet. 05/11/20 [Rx] Docusate [Colace] 100 mg PO DAILY #30 capsule 05/11/20 [Rx] Hydrocodone/Acetaminophen [[place] 5-325] 1 - 2 each PO Q6HR PRN #42 tab 05/11/20 [Rx] Follow up Appointment(s)/Referral(s): [facility], [NON-STAFF] - As Needed [employer]ipment [NON-STAFF] - As Needed (Continuous Passive Motion knee machine) Sanam Rios NPC [Primary Care Provider] - As Needed Phillip Zapien PAC [PHYSICIAN HOSPITAL SUPERVISOR] - 2 Weeks Activity/Diet/Wound Care/Special Instructions: Orthopedic Discharge Instructions: 1. Wound care and infection precautions, keep incision dry and covered while showering, no lotions, creams, moisturizers. No soaking, pools, hot tubs. Do not scrub over incision. Ok to remove foam dressing on 05/20/2020 2. Weight-bear as tolerated with walker / cane until follow-up. 3. Ice and elevate when necessary. Do not exceed 20 minutes per hour with ice pack. 4. Utilize compression sleeve until seen at first follow up appointment. 5. Pain meds and anticoagulants per prescription. 6. Pain medication has potential to cause constipation. Increase oral fluid and fiber intake. Contact primary care provider if you have not had a bowel movement within 48 hours after discharge. 7. No anti-inflammatory medication until discussed at first post operative visit, this including Motrin, Aleve, Mobic, Diclofenac. 8. Follow up in office at 2 weeks postop with Epifanio Zapien PA-C 9. Follow up with your primary care doctor 7-10 days after discharge. 10. Contact [facility] with any questions, . Discharge Disposition: HOME WITH HOME HEALTH SERVICES
[2020-05-11 12:36] VITALS: BP 94/54; PULSE 68
[2020-05-11 12:39] LABS: Glucose,Whole Blood 89 mg/dL (75-99)
== END 2020-05-11 13:20 | disposition home health service (06) ==
LOC: OR 08:06 → 4SSUR 15:07 → OR 05-11 13:20
PROVIDERS: ATTEND Orthopaedic Surgery
DX: M17.12 Unilateral primary osteoarthritis, left knee (principal); I10 Essential (primary) hypertension; K21.9 Gastro-esophageal reflux disease without esophagitis; Z96.651 Presence of right artificial knee joint; Z96.641 Presence of right artificial hip joint; Z90.49 Acquired absence of other specified parts of digestive tract; E78.5 Hyperlipidemia, unspecified; Z79.1 Long term (current) use of non-steroidal anti-inflammatories (NSAID); Z88.2 Allergy status to sulfonamides; Z79.899 Other long term (current) drug therapy; Z86.718 Personal history of other venous thrombosis and embolism; Z86.711 Personal history of pulmonary embolism; I47.1 Supraventricular tachycardia; Z90.710 Acquired absence of both cervix and uterus; Z98.890 Other specified postprocedural states; R41.3 Other amnesia; F41.9 Anxiety disorder, unspecified; Z80.9 Family history of malignant neoplasm, unspecified; Z82.49 Family history of ischemic heart disease and other diseases of the circulatory system
CPT/HCPCS: 97110; 97161; 64448; 76942; 84132; 85025; 88300; 73560; 27447; C1776; C1713; J2250; J0171; J1100; J0690 ×2; J2405; J2001; J3010; J1885; J1650 ×2; J2795 ×2; J2704; J0735; J1170

== ENCOUNTER → 2020-05-21 | Outpatient (CLI) | payer MEDICARE ==
--- NOTE | 2020-05-21 14:19 | US ---
EXAMINATION TYPE: US venous doppler duplex LE LT DATE OF EXAM: 05/21/2020 1:25 PM COMPARISON: NONE CLINICAL HISTORY: 75-year-old female M79.662 PAIN LT LOWER LIMB, R22.42 SWELLING LT LOW. SIDE PERFORMED: Left TECHNIQUE: The lower extremity deep venous system is examined utilizing real time linear array sonog artemio with graded compression, doppler sonography and color-flow sonography. FINDINGS: VESSELS IMAGED: Common Femoral Vein Deep Femoral Vein Greater Saphenous Vein * Femoral Vein Popliteal Vein Small Saphenous Vein * Proximal Calf Veins (* superficial vessels) Left Leg: Negative for DVT IMPRESSION: No evidence for DVT within the left lower extremity imaged from the groin to the upper calf.
== END | disposition home or self-care (01) ==
LOC: RADUSWWP 12:53
PROVIDERS: ATTEND Nurse Practitioner Family
DX: R22.42 Localized swelling, mass and lump, left lower limb (principal); Z88.2 Allergy status to sulfonamides

== ENCOUNTER → 2021-01-04 | Outpatient (CLI) | payer MEDICARE ==
--- NOTE | 2021-01-08 13:48 | MM ---
Reason for exam: screening (asymptomatic). Last mammogram was performed 1 year ago. History: Patient is postmenopausal, history of other cancer, and is nulliparous. Family history of breast cancer in mother at age 47. Took hormonal contraceptives for 1 year. Physical Findings: A clinical breast exam by your physician is recommended on an annual basis and results should be correlated with mammographic findings. MG 3D Screening Mammo W/Cad Bilateral CC and MLO view(s) were taken. Prior study comparison: January 02, 2020, bilateral MG 3d screening mammo w/cad. December 30, 2018, bilateral MG 3d screening mammo w/cad. Previous mammotome biopsy in the right breast. Asymmetric breast tissue. Asymmetry, right larger than left. No significant changes when compared with prior studies. ASSESSMENT: Benign, BI-RAD 2 RECOMMENDATION: Routine screening mammogram of both breasts in 1 year.
== END | disposition home or self-care (01) ==
LOC: RADMAMWWP 09:50
PROVIDERS: ATTEND Surgery
DX: Z12.31 Encounter for screening mammogram for malignant neoplasm of breast (principal); Z78.0 Asymptomatic menopausal state; Z85.3 Personal history of malignant neoplasm of breast
CPT/HCPCS: 77063; 77067

== ENCOUNTER → 2021-01-24 | Outpatient (CLI) | payer MEDICARE ==
[2021-01-24 12:40] VITALS: BP 126/68; PULSE 81; RESP 18; TEMP 98.4
--- NOTE | 2021-01-24 12:46 | P.PN ---
Subjective Progress Note Date: 01/24/21 Principal diagnosis: Fibrocystic breast changes Mrs. Ferrara is a 75-year-old white female who was initially seen approximately four years ago with a complaint of pain in her right breast. Since that time she has taken primrose oil and the pain is only present with deep palpation. She had a bilateral mammogram performed on . This was 3-D. This was benign BIRADS 2. She is not complaining of any pain masses nodules or concerns about her breast. The patient drinks decaffeinated coffee, she is not exposed to secondhand smoke, and she drinks approximately one soda a day and this is caffeine free. She does not smoke. She does not eat chocolate often. She is not taking primrose oil at this time, but has noticed a decreased discomfort in the right breast. Family history: 1. Maternal grandmother with leukemia 2. Mother breast cancer 47 of breast cancer, locally advanced "hole in her side" 3. Father melanoma and prostate cancer Past surgical history: 1. Hysterectomy 2. Appendectomy 3. Bilateral hip replacement 4. Cardiac ablation/ done for SVT 5. Left-sided neck lump 6. right knee replacement 7. left knee replacement Past medical history: 1. hypotension; follows with cardiology 2. DVT 3. eye disorder 4. reflux 5. hyperlipedema 6. Pulmoary embolis 7. osteoarthrits menarche: 14 : none, intentional menopause: about 51, hysterectomy at 61 took ovaries done for fibroid tumors hormones: none BCP: 5 years Social history: Smoking: Negative Alcohol: negative Drugs: Negative - Constitutional Constitutional: Reports sweats, Denies chills, Denies fever - EENT Eyes: bilateral decreased vision (macular degenertion), denies blurred vision, denies pain Ears: deny: decreased hearing, tinnitus Ears, nose, mouth and throat: Denies headache, Denies sore throat - Breasts Breasts: bilateral: as per HPI - Cardiovascular Comment: cardiac ablation, has PVC Cardiovascular: Reports recent hypotension, scheduled for a cardiac cath - Respiratory Respiratory: Denies cough - Gastrointestinal Gastrointestinal: Denies abdominal pain, Denies diarrhea, Denies nausea, Denies vomiting, reflux gone on medication - Menstruation Menstruation: Reports post hysterectomy, Reports postmenopausal - Musculoskeletal Comment: osteo arthritis - Integumentary Comment: pre-cancers removed - Neurological Neurological: Denies numbness, Denies weakness - Psychiatric Psychiatric: Denies anxiety, Denies depression - Endocrine Endocrine: Denies fatigue, Denies weight change - Hematologic/Lymphatic Comment: aspirin - Allergic/Immunologic Comment: Bactrim Objective - Constitutional General appearance: Present: cooperative - EENT ENT: Present: hearing grossly normal - Neck Neck: Present: normal ROM - Respiratory Respiratory: bilateral: CTA - Cardiovascular Rhythm: regular Heart sounds: normal: S1, S2 - Gastrointestinal General gastrointestinal: Present: soft - Integumentary Integumentary: Present: normal turgor - Musculoskeletal Musculoskeletal: Present: gait normal - Psychiatric Psychiatric: Present: A&O x's 3, appropriate affect, intact judgment & insight - Additional findings Additional findings: Bresat exam: BRA: 40C inspection: Right breast larger than left breast, bilateral grade 3 ptosis; fungal infection under right breast, to a lesser degree and her left breast Palpation: Right breast multiple positional exam fibrocystic changes no dominant masses or nodules of concern Right axilla: No adenopathy of concern Left breast: Multi-positional exam fibrocystic changes no dominant masses or nodules of concern Left axilla: No adenopathy of concern Assessment and Plan Assessment: Impression: 1. hypotension; follows with cardiology 2. DVT 3. eye disorder 4. reflux 5. hyperlipedema 6. Pulmoary embolis 7. osteoarthrits 8. Bilateral fibrocystic breast changes 9. Fungal infection under each breast 10. Recent bilateral mammogram benign BIRADS 2 Plan: 1. Bilateral mammogram in 1 year 2. Nystatin cream under breast for fungal infection 3. Patient to call sooner if any questions or concerns CC: Dr. Rios
== END ==
LOC: WWCWWP 12:14
PROVIDERS: ATTEND Surgery
DX: N60.11 Diffuse cystic mastopathy of right breast (principal); N60.12 Diffuse cystic mastopathy of left breast; I95.9 Hypotension, unspecified; H57.9 Unspecified disorder of eye and adnexa; K21.9 Gastro-esophageal reflux disease without esophagitis; E78.5 Hyperlipidemia, unspecified; M19.90 Unspecified osteoarthritis, unspecified site; B48.8 Other specified mycoses; Z86.718 Personal history of other venous thrombosis and embolism; Z86.711 Personal history of pulmonary embolism; Z79.899 Other long term (current) drug therapy; Z88.1 Allergy status to other antibiotic agents

== ENCOUNTER 2021-05-19 12:58 | Emergency (ER) | payer MEDICARE ==
[2021-05-19 13:10] VITALS: RESP 18; TEMP 98.7
[2021-05-19] MEDS ORDERED: ASPIRIN 81 MG PO STA (13:43)
[2021-05-19] MEDS ORDERED: LORazepam 1 MG TAB PO STA (13:43)
--- NOTE | 2021-05-19 13:57 | ED ---
General Adult HPI - General Chief complaint: Arrhythmia/Palpitations Stated complaint: heart palpitations Time Seen by Provider: 05/19/21 13:11 Source: patient, family, RN notes reviewed, old records reviewed Mode of arrival: ambulatory Limitations: no limitations - History of Present Illness Initial comments: She was evaluated when she was placed in a room. Patient is a 76-year-old female with past medical history remarkable for SVT status post ablation who presents emergency Department complaining of heart palpitations with paresthesias in the left upper extremity. Patient is under more stress lately, as her is now in a rehab facility. She states that she feels like her heart is beating more, particularly when she is alone, and has associated left upper extremity tingling sensation for the last 3-4 weeks. She states she has noticed it more over the last week. She denies any chest pain, shortness of breath, abdominal pain, nausea, vomiting. Denies any lightheadedness, syncopal episodes, headache, weakness. She states she was given Xanax, however has not been taking it as often as she possibly could. She does endorse increased anxiety and stress with her being in the rehab facility. She'll ice is no acute complaints at this time. She states she checked her pulse ox as well as heart rate while she was at the rehab facility, and saw that her heart rate was 92 beats per minute and became concerned that that was too high and wanted to be evaluated. Patient's friend brought her to the emergency department today because of this. - Related Data Home Medications Medication Instructions Recorded Confirmed Atorvastatin [Lipitor] 10 mg PO DAILY 10/25/15 01/24/21 Celecoxib [CeleBREX] 200 mg PO DAILY 01/17/19 01/24/21 Fluticasone Nasal [place] [Flonase 2 spr EA NOSTRIL DAILY PRN 12/02/19 01/24/21 Nasal [place]] Lansoprazole [Prevacid] 30 mg PO DAILY PRN 12/02/19 01/24/21 Calcium Carbonate/Vitamin D3 2 each PO DAILY 05/03/20 01/24/21 [Calcium 600-Vit D3 400 Tablet] Lutein 20 mg PO DAILY 05/03/20 01/24/21 Vitamin A [Vitamin A (8,000 Units 2,400 mcg PO DAILY 11/12/20 08/05/21 = 2,400 MCG)] Multivitamin [Multivitamins Adult 1 each PO HS 01/24/21 01/24/21 Gummies] Previous Rx's Medication Instructions Recorded Aspirin [Adult Low Dose Aspirin EC] 81 mg PO BID #60 tablet. 05/11/20 Docusate [Colace] 100 mg PO DAILY #30 capsule 05/11/20 Allergies Allergy/AdvReac Type Severity Reaction Status Date / Time sulfamethoxazole Allergy Itching Verified 05/19/21 13:09 [From Bactrim] trimethoprim [From Bactrim] Allergy Itching Verified 05/19/21 13:09 Review of Systems ROS Statement: Those systems with pertinent positive or pertinent negative responses have been documented in the HPI. Review of Systems: CONST: Denies fever EYES: Denies blurry vision ENT: Denies nasal congestion C/V: Endorses palpitations RESP: Denies shortness of breath GI: Denies abdominal pain : Denies dysuria SKIN: Denies rash. MSK: Denies joint pain. NEURO: Endorses left upper extremity chronic paresthesia ROS Other: All systems not noted in ROS Statement are negative. Past Medical History Past Medical History: Deep Vein Thrombosis (DVT), Eye Disorder, GERD/Reflux, Hyperlipidemia, Osteoarthritis (OA), Pulmonary Embolus (PE), Supraventricular Tachycardia (SVT) Additional Past Medical History / Comment(s): MACULAR DEGENERATION History of Any Multi-Drug Resistant Organisms: None Reported Past Surgical History: Cardiac Ablation, Joint Replacement Additional Past Surgical History / Comment(s): ANTERIOR TOTAL RIGHT HIP, Left hip sx. rt breast biopsies Past Anesthesia/Blood Transfusion Reactions: No Reported Reaction Past Psychological History: Anxiety Smoking Status: Never smoker Past Alcohol Use History: Rare Past Drug Use History: None Reported - Past Family History Mother Family Medical History: Cancer Father Family Medical History: Cancer, Myocardial Infarction ([place]) General Exam - General Exam Comments Initial Comments: General: Appears in no acute distress. HEAD: Normal with no signs of head trauma. EYES: PERRLA, EOMI, conjunctiva normal, no discharge. ENT: Hearing grossly intact, normal oropharynx. RESPIRATORY: Clear breath sounds bilaterally. No wheezes, rales, or rhonchi. C/V: Regular rate and rhythm. S1 and S2 auscultated, no edema, peripheral pulses 2+ and intact throughout ABD: Abd is soft, nontender, nondistended EXT: Normal range of motion, no obvious deformity SKIN: No rashes or lesions observed on exposed skin. NEURO: Alert and oriented x 4. Cranial nerves II-XII intact. No focal sensory or strength deficits. Cerebellar function intact as evident by normal finger to nose testing. Patient ambulates without difficulty. NIH is 0. GCS is 15. Patient states she has no numbness, but can still feel the tingling sensation. She has a subjective chronic paresthesia. Limitations: no limitations Course Vital Signs 05/19/21 05/19/21 05/19/21 13:04 15:03 15:36 Temperature 98.7 F Pulse Rate 89 75 Pulse Rate [ 82 Sitting Radial] Respiratory 18 18 Rate Blood Pressure 123/80 124/68 O2 Sat by Pulse 97 96 Oximetry Medical Decision Making - Medical Decision Making Based on the patient's presentation and physical exam, I low suspicion for cardiac etiology at this time. Diagnosis patient for an acute stroke. She is having palpitations as well as chronic paresthesias with acute onset after patient's was admitted to rehab facility following illness. She has self endorse increased stress and anxiety. However due to her age as well as past medical history of SVT and cardiac ablation we will obtain a cardiac workup at this time. Single troponin she be sufficient in addition to EKG, basic labs and chest x-ray. Patient was in agreement with this plan. She will be administered 0.25 mg by mouth Ativan at her request. This is in addition to an aspirin. Patient will be monitored in the department while waiting for results. EKG shows no signs of acute ischemia. There are no signs of hyperkalemia present. No changes from prior EKGs. Chest x-ray reveals no acute cardio pulmonary process. Laboratory studies are remarkable for a negative troponin, as well as a mild hyperkalemia with a history of chronic hyperkalemia. Upon review, going back 3 years, patient's potassium is typically between 5 and 5.5. Remainder of her labs are unremarkable. I discussed the findings with the patient. She is feeling much improved at this time. Paresthesias, palpitations have resolved. I do believe it is safe for her to be discharged home at this time. Heart score is 3, and low. She was in agreement with this plan. We discussed that I believe there is a strong anxiety component to her current symptoms as they have been ongoing since a stressful event 3 weeks ago. She was in agreement with this. She does have Xanax already prescribed by her PCP and she states she will attempt to take it when she feels this stressed out. I counseled her to take as prescribed. I instructed the patient to follow up with their PCP in the next 3 days. I explained that the patient should return to the emergency department if they experience any worsening symptoms. Strict return precautions were discussed with the patient. The patient expressed understanding of these instructions. I answered all questions that the patient had. The patient was discharged home in good condition with their prescriptions and follow up information. - Lab Data Result diagrams: 05/19/21 14:10 05/19/21 14:10 Lab Results 05/19/21 05/19/21 05/19/21 Range/Units 14:10 14:10 14:10 WBC 9.9 (3.8-10.6) k/uL RBC 4.84 (3.80-5.40) m/uL Hgb 15.0 (11.4-16.0) gm/dL Hct 45.0 (34.0-46.0) % MCV 92.9 (80.0-100.0) fL MCH 31.0 (25.0-35.0) pg MCHC 33.3 (31.0-37.0) g/dL RDW 12.5 (11.5-15.5) % Plt Count 248 (150-450) k/uL MPV 7.6 Neutrophils % 76 % Lymphocytes % 17 % Monocytes % 6 % Eosinophils % 1 % Basophils % 0 % Neutrophils # 7.5 (1.3-7.7) k/uL Lymphocytes # 1.7 (1.0-4.8) k/uL Monocytes # 0.6 (0-1.0) k/uL Eosinophils # 0.1 (0-0.7) k/uL Basophils # 0.0 (0-0.2) k/uL Sodium 137 (137-145) mmol/L Potassium 5.4 H (3.5-5.1) mmol/L Chloride 102 (98-107) mmol/L Carbon Dioxide 28 (22-30) mmol/L Anion Gap 7 mmol/L BUN 13 (7-17) mg/dL Creatinine 0.78 (0.52-1.04) mg/dL Est GFR (CKD-EPI)AfAm 86 (>60 ml/min/1.73 sqM) Est GFR (CKD-EPI)NonAf 75 (>60 ml/min/1.73 sqM) Glucose 103 H (74-99) mg/dL Calcium 11.4 H (8.4-10.2) mg/dL Magnesium 2.4 H (1.6-2.3) mg/dL Total Bilirubin 0.6 (0.2-1.3) mg/dL AST 31 (14-36) U/L ALT 25 (4-34) U/L Alkaline Phosphatase 102 (38-126) U/L Troponin I 0.016 (0.000-0.034) ng/mL Total Protein 7.8 (6.3-8.2) g/dL Albumin 4.6 (3.5-5.0) g/dL - EKG Data -: EKG Interpreted by Me EKG Comments: 12-lead Electrocardiogram Interpretation Note EKG was reviewed and interpreted by myself. 12-lead ECG performed at 1415 is interpreted by me as revealing normal sinus rhythm at a rate of 69 beats per min curry. [place] is normal. [place] interval is 166 ms, QRS duration is 126 ms, QTc is 467 ms.. There were no ST or T wave abnormalities to suggest myocardial ischemia or injury. There are signs of a right bundle branch block. There is an isolated T-wave inversion in lead III. There are no reciprocal changes. R wave progression across the precordium was satisfactory. By my interpretation this EKG is non-diagnostic for acute ischemia. Upon comparison to prior EKGs, there are no acute changes. Disposition Clinical Impression: Palpitations, Anxiety, Hyperkalemia Disposition: HOME SELF-CARE Condition: Good Instructions (If sedation given, give patient instructions): Heart Palpitations (ED) Additional Instructions: Follow up with PCP in the next 1-3 days. Continue taking xanax as needed for anxiety. Follow up with PCP to check on chronic hyperkalemia (high potassium). Is patient prescribed a controlled substance at d/c from ED?: No Referrals: Cameron Raphael MD [Primary Care Provider] - 1-2 days
[2021-05-19 14:17] LABS: Basophils % (A) 0 %; Eosinophils # (A) 0.1 k/uL (0-0.7); Eosinophils % (A) 1 %; Lymphocytes # (A) 1.7 k/uL (1.0-4.8); Lymphocytes % (A) 17 %; MCHC 33.3 g/dL (31.0-37.0); MCV 92.9 fL (80.0-100.0); Mean Platelet Volume 7.6; Monocytes # (A) 0.6 k/uL (0-1.0); Monocytes % (A) 6 %; Neutrophils # (A) 7.5 k/uL (1.3-7.7); Neutrophils % (A) 76 %; Platelet Count 248 k/uL (150-450); RBC 4.84 m/uL (3.80-5.40); RDW 12.5 % (11.5-15.5); WBC 9.9 k/uL (3.8-10.6)
[2021-05-19 14:31] LABS: Albumin 4.6 g/dL (3.5-5.0); Calcium 11.4 mg/dL (8.4-10.2); Magnesium 2.4 mg/dL (1.6-2.3); Potassium 5.4 mmol/L (3.5-5.1); Total Bilirubin 0.6 mg/dL (0.2-1.3); Total Protein 7.8 g/dL (6.3-8.2)
--- NOTE | 2021-05-19 15:14 | XR ---
EXAMINATION TYPE: XR chest 2V DATE OF EXAM: 05/19/2021 COMPARISON: 11/22/2017 HISTORY: Chest pain TECHNIQUE: FINDINGS: Heart and mediastinum are normal. Lungs are clear of infiltrate. There is no heart failure. Bony thorax is intact. IMPRESSION: Normal chest. No change.
[2021-05-19 15:37] VITALS: BP 124/68; PULSE 75
== END 2021-05-19 16:02 | disposition home or self-care (01) ==
LOC: EC 12:58
DX: F41.9 Anxiety disorder, unspecified (principal); E87.5 Hyperkalemia; E78.5 Hyperlipidemia, unspecified; K21.9 Gastro-esophageal reflux disease without esophagitis; M19.90 Unspecified osteoarthritis, unspecified site; Z86.711 Personal history of pulmonary embolism; Z86.718 Personal history of other venous thrombosis and embolism; Z79.82 Long term (current) use of aspirin; Z79.899 Other long term (current) drug therapy
CPT/HCPCS: 36415; 71046; 80053; 83735; 84484; 85025; 93005; 99285

== ENCOUNTER → 2021-05-31 | Outpatient (CLI) | payer MEDICARE ==
[2021-05-31 14:42] LABS: ALT 23 U/L (4-34); AST 29 U/L (14-36); African American GFR (CKD) 89 (>60 ml/min/1.73 sqM); Albumin 4.1 g/dL (3.5-5.0); Albumin/Globulin Ratio 1.5; Alkaline Phosphatase 79 U/L (38-126); Anion Gap 9 mmol/L; Blood Urea Nitrogen 13 mg/dL (7-17); Calcium 9.9 mg/dL (8.4-10.2); Carbon Dioxide 26 mmol/L (22-30); Chloride 102 mmol/L (98-107); Globulin 2.8 g/dL; Glucose 138 mg/dL (74-99); Magnesium 2.2 mg/dL (1.6-2.3); Non-African American GFR(CKD) 77 (>60 ml/min/1.73 sqM); Phosphorus 2.7 mg/dL (2.5-4.5); Potassium 4.8 mmol/L (3.5-5.1); Sodium 137 mmol/L (137-145); Total Bilirubin 0.3 mg/dL (0.2-1.3); Total Protein 6.9 g/dL (6.3-8.2)
[2021-05-31 14:44] LABS: Ionized Calcium 5.4 mg/dL (4.5-5.3)
== END | disposition home or self-care (01) ==
LOC: LABWHC1 13:14
PROVIDERS: ATTEND Internal Medicine
DX: E87.8 Other disorders of electrolyte and fluid balance, not elsewhere classified (principal)
CPT/HCPCS: 36415; 80053; 82330; 83735; 83970; 84100; 84443

== ENCOUNTER 2021-06-06 08:22 | Emergency (ER) | payer MEDICARE ==
[2021-06-06 08:35] VITALS: TEMP 98.2
[2021-06-06 09:12] LABS: Basophils % (A) 1 %; Eosinophils # (A) 0.1 k/uL (0-0.7); Eosinophils % (A) 1 %; HCT 43.3 % (34.0-46.0); HGB 14.4 gm/dL (11.4-16.0); Lymphocytes # (A) 0.8 k/uL (1.0-4.8); Lymphocytes % (A) 14 %; MCH 32.2 pg (25.0-35.0); MCHC 33.3 g/dL (31.0-37.0); MCV 96.6 fL (80.0-100.0); Mean Platelet Volume 7.6; Monocytes # (A) 0.4 k/uL (0-1.0); Monocytes % (A) 7 %; Neutrophils # (A) 4.4 k/uL (1.3-7.7); Neutrophils % (A) 75 %; Platelet Count 242 k/uL (150-450); RBC 4.48 m/uL (3.80-5.40); RDW 13.2 % (11.5-15.5); WBC 5.8 k/uL (3.8-10.6)
[2021-06-06 09:22] LABS: Partial Thromboplastin Time 22.5 sec (22.0-30.0); Prothrombin Time 10.3 sec (9.0-12.0)
[2021-06-06 09:32] LABS: ALT 24 U/L (4-34); AST 34 U/L (14-36); African American GFR (CKD) >90 (>60 ml/min/1.73 sqM); Albumin 4.1 g/dL (3.5-5.0); Alkaline Phosphatase 91 U/L (38-126); Anion Gap 6 mmol/L; Blood Urea Nitrogen 14 mg/dL (7-17); Calcium 9.8 mg/dL (8.4-10.2); Carbon Dioxide 28 mmol/L (22-30); Chloride 102 mmol/L (98-107); Glucose 115 mg/dL (74-99); Magnesium 2.1 mg/dL (1.6-2.3); Non-African American GFR(CKD) 88 (>60 ml/min/1.73 sqM); Potassium 4.6 mmol/L (3.5-5.1); Sodium 136 mmol/L (137-145); Total Bilirubin 0.6 mg/dL (0.2-1.3); Total Protein 7.1 g/dL (6.3-8.2)
--- NOTE | 2021-06-06 09:47 | XR ---
EXAMINATION TYPE: XR chest 2V DATE OF EXAM: 06/06/2021 COMPARISON: Chest x-ray May 19, 2021 HISTORY: Chest pain. TECHNIQUE: Frontal and lateral views of the chest are obtained. FINDINGS: There is no new Suspicious focal air space opacity, pleural effusion, or pneumothorax seen . The cardiac silhouette size remains within normal limits. The osseous structures are demineraliz ed. Underlying scoliotic curvature redemonstrated. IMPRESSION: No acute process. No significant change from prior.
--- NOTE | 2021-06-06 10:14 | ED ---
Recheck HPI - General Chief Complaint: Recheck/Abnormal Lab/Rx Stated Complaint: new med reaction Time Seen by Provider: 06/06/21 08:36 Source: patient, RN notes reviewed Mode of arrival: ambulatory Limitations: no limitations - History of Present Illness Initial Comments: Patient is a 76-year-old female that presents to the emergency department complaining of sweaty palms palpitations and shakiness. She notes that she started new medication recently. She notes she does have a history of anxiety and anxiety attacks. She notes she does have a significant cardiac history involving an ablation due to a supraventricular tachycardia. She notes this was 10+ years ago. Patient was otherwise well-appearing while sitting in bed during exam and interview. She denied any current chest pain shortness of breath headache nausea vomiting diarrhea constipation fever fatigue chills. - Related Data Home Medications Medication Instructions Recorded Confirmed Atorvastatin [Lipitor] 10 mg PO DAILY 10/25/15 06/06/21 Celecoxib [CeleBREX] 200 mg PO DAILY 01/17/19 06/06/21 ALPRAZolam [Xanax] 0.25 mg PO BID PRN 06/06/21 06/06/21 Venlafaxine HCl ER [Effexor Xr] 37.5 mg PO ONCE 06/06/21 06/06/21 Allergies Allergy/AdvReac Type Severity Reaction Status Date / Time sulfamethoxazole Allergy Itching Verified 06/06/21 08:35 [From Bactrim] trimethoprim [From Bactrim] Allergy Itching Verified 06/06/21 08:35 sertraline [From Zoloft] AdvReac connor & Verified 06/06/21 09:45 sweaty venlafaxine [From Effexor] AdvReac brennanky & Verified 06/06/21 09:46 sweaty-see comment Review of Systems ROS Statement: Those systems with pertinent positive or pertinent negative responses have been documented in the HPI. ROS Other: All systems not noted in ROS Statement are negative. Past Medical History Past Medical History: Deep Vein Thrombosis (DVT), Eye Disorder, GERD/Reflux, Hyperlipidemia, Osteoarthritis (OA), Pulmonary Embolus (PE), Supraventricular Tachycardia (SVT) Additional Past Medical History / Comment(s): MACULAR DEGENERATION History of Any Multi-Drug Resistant Organisms: None Reported Past Surgical History: Cardiac Ablation, Joint Replacement Additional Past Surgical History / Comment(s): ANTERIOR TOTAL RIGHT HIP, Left hip sx. rt breast biopsies Past Anesthesia/Blood Transfusion Reactions: No Reported Reaction Past Psychological History: Anxiety Smoking Status: Never smoker Past Alcohol Use History: Rare Past Drug Use History: None Reported - Past Family History Mother Family Medical History: Cancer Father Family Medical History: Cancer, Myocardial Infarction ([place]) General Exam Limitations: no limitations General appearance: alert, in no apparent distress Head exam: Present: atraumatic, normocephalic, normal inspection Eye exam: Present: normal appearance, PERRL, EOMI. Absent: scleral icterus, con junctival injection, periorbital swelling ENT exam: Present: normal exam, mucous membranes moist Neck exam: Present: normal inspection Respiratory exam: Present: normal lung sounds bilaterally. Absent: respiratory distress, wheezes, rales, rhonchi, stridor Cardiovascular Exam: Present: regular rate, normal rhythm, normal heart sounds. Absent: systolic murmur, diastolic murmur, rubs, gallop, clicks Extremities exam: Present: normal inspection, full ROM, normal capillary refill. Absent: tenderness, pedal edema, joint swelling, calf tenderness Neurological exam: Present: alert, oriented X3 Psychiatric exam: Present: normal affect, normal mood Skin exam: Present: warm, dry, intact, normal color. Absent: rash Course Vital Signs 06/06/21 08:28 Temperature 98.2 F Pulse Rate 76 Respiratory 18 Rate Blood Pressure 145/83 O2 Sat by Pulse 96 Oximetry Medical Decision Making - Medical Decision Making 76-year-old female with sweaty palms palpitations and shakiness after taking the medication. Labs, EKG, chest x-ray, learning and development assistant ordered. Labs are unremarkable, negative troponin. Chest x-ray shows no acute cardiopulmonary process. Most likely experienced a anxiety attack. Case discussed with Dr. Clark, patient can discharge home with follow-up primary care - Lab Data Result diagrams: 06/06/21 09:04 06/06/21 09:04 Lab Results 06/06/21 06/06/21 06/06/21 Range/Units 09:04 09:04 09:04 WBC 5.8 (3.8-10.6) k/uL RBC 4.48 (3.80-5.40) m/uL Hgb 14.4 (11.4-16.0) gm/dL Hct 43.3 (34.0-46.0) % MCV 96.6 (80.0-100.0) fL MCH 32.2 (25.0-35.0) pg MCHC 33.3 (31.0-37.0) g/dL RDW 13.2 (11.5-15.5) % Plt Count 242 (150-450) k/uL MPV 7.6 Neutrophils % 75 % Lymphocytes % 14 % Monocytes % 7 % Eosinophils % 1 % Basophils % 1 % Neutrophils # 4.4 (1.3-7.7) k/uL Lymphocytes # 0.8 L (1.0-4.8) k/uL Monocytes # 0.4 (0-1.0) k/uL Eosinophils # 0.1 (0-0.7) k/uL Basophils # 0.0 (0-0.2) k/uL PT 10.3 (9.0-12.0) sec INR 1.0 (<1.2) APTT 22.5 (22.0-30.0) sec Sodium 136 L (137-145) mmol/L Potassium 4.6 (3.5-5.1) mmol/L Chloride 102 (98-107) mmol/L Carbon Dioxide 28 (22-30) mmol/L Anion Gap 6 mmol/L BUN 14 (7-17) mg/dL Creatinine 0.63 (0.52-1.04) mg/dL Est GFR (CKD-EPI)AfAm >90 (>60 ml/min/1.73 sqM) Est GFR (CKD-EPI)NonAf 88 (>60 ml/min/1.73 sqM) Glucose 115 H (74-99) mg/dL Calcium 9.8 (8.4-10.2) mg/dL Magnesium 2.1 (1.6-2.3) mg/dL Total Bilirubin 0.6 (0.2-1.3) mg/dL AST 34 (14-36) U/L ALT 24 (4-34) U/L Alkaline Phosphatase 91 (38-126) U/L Troponin I (0.000-0.034) ng/mL Total Protein 7.1 (6.3-8.2) g/dL Albumin 4.1 (3.5-5.0) g/dL 06/06/21 Range/Units 09:04 WBC (3.8-10.6) k/uL RBC (3.80-5.40) m/uL Hgb (11.4-16.0) gm/dL Hct (34.0-46.0) % MCV (80.0-100.0) fL MCH (25.0-35.0) pg MCHC (31.0-37.0) g/dL RDW (11.5-15.5) % Plt Count (150-450) k/uL MPV Neutrophils % % Lymphocytes % % Monocytes % % Eosinophils % % Basophils % % Neutrophils # (1.3-7.7) k/uL Lymphocytes # (1.0-4.8) k/uL Monocytes # (0-1.0) k/uL Eosinophils # (0-0.7) k/uL Basophils # (0-0.2) k/uL PT (9.0-12.0) sec INR (<1.2) APTT (22.0-30.0) sec Sodium (137-145) mmol/L Potassium (3.5-5.1) mmol/L Chloride (98-107) mmol/L Carbon Dioxide (22-30) mmol/L Anion Gap mmol/L BUN (7-17) mg/dL Creatinine (0.52-1.04) mg/dL Est GFR (CKD-EPI)AfAm (>60 ml/min/1.73 sqM) Est GFR (CKD-EPI)NonAf (>60 ml/min/1.73 sqM) Glucose (74-99) mg/dL Calcium (8.4-10.2) mg/dL Magnesium (1.6-2.3) mg/dL Total Bilirubin (0.2-1.3) mg/dL AST (14-36) U/L ALT (4-34) U/L Alkaline Phosphatase (38-126) U/L Troponin I <0.012 (0.000-0.034) ng/mL Total Protein (6.3-8.2) g/dL Albumin (3.5-5.0) g/dL - EKG Data -: EKG Interpreted by Oh EKG shows normal: sinus rhythm Rate: normal EKG Comments: Ventricular rate 61 bpm, OR interval 158 ms, QRS duration 128 ms, QTC 459 ms, PRT axes 41/negative/19. Normal sinus rhythm and right bundle branch block, minimal voltage criteria for LVH may be normal variant, abnormal ECG. When compared to previous EKG there are: no significant change - Radiology Data Radiology results: report reviewed, image reviewed X-ray chest: No acute process. No significant change from prior. Disposition Clinical Impression: Anxiety, Palpitations Disposition: HOME SELF-CARE Condition: Stable Instructions (If sedation given, give patient instructions): Anxiety (ED) Additional Instructions: Please return to the Emergency Department if symptoms worsen or any other concerns. Follow-up with primary care 1-2 days. Continue to take medication as prescribed. Is patient prescribed a controlled substance at d/c from ED?: No Referrals: Cameron Raphael MD [Primary Care Provider] - 1-2 days Time of Disposition: 10:13
[2021-06-06 10:45] VITALS: BP 138/89; PULSE 80; RESP 16
== END 2021-06-06 10:47 | disposition home or self-care (01) ==
LOC: EC 08:22
DX: F41.9 Anxiety disorder, unspecified (principal); K21.9 Gastro-esophageal reflux disease without esophagitis; E78.5 Hyperlipidemia, unspecified; M19.90 Unspecified osteoarthritis, unspecified site; Z86.718 Personal history of other venous thrombosis and embolism; Z86.711 Personal history of pulmonary embolism; Z79.899 Other long term (current) drug therapy
CPT/HCPCS: 36415; 71046; 80053; 83735; 84484; 85025; 85610; 85730; 93005; 99285

== ENCOUNTER 2021-06-17 08:36 | Emergency (ER) | payer MEDICARE ==
[2021-06-17 08:50] VITALS: BP 134/65; PULSE 79; RESP 18; TEMP 98
[2021-06-17] MEDS ORDERED: LORazepam 1 MG TAB PO STA (09:05)
--- NOTE | 2021-06-17 09:08 | ED ---
General Adult HPI - General Chief complaint: Anxiety Stated complaint: anxiety Time Seen by Provider: 06/17/21 08:52 Source: patient, RN notes reviewed Mode of arrival: ambulatory Limitations: no limitations - History of Present Illness Initial comments: Patient is a pleasant 76-year-old female presenting to the emergency department with concerns for her anxiety. Patient states her is sick or patient has been having symptoms for the past several months. Patient is not sleeping well and only states a couple hours per night. Patient has decreased appetite. Patient feels tingly in both of her arms and legs. Patient states her anxiety was worse last night and is starting to improved, almost resolved. Patient is on Xanax however questions if it is working well enough for her. Patient also is on Effexor. Patient has been to the emergency Department a couple times for this already as well as her primary care physician. - Related Data Home Medications Medication Instructions Recorded Confirmed Atorvastatin [Lipitor] 10 mg PO DAILY 10/25/15 06/06/21 Celecoxib [CeleBREX] 200 mg PO DAILY 01/17/19 06/06/21 ALPRAZolam [Xanax] 0.25 mg PO BID PRN 06/06/21 06/06/21 Venlafaxine HCl ER [Effexor Xr] 37.5 mg PO ONCE 06/06/21 06/06/21 Allergies Allergy/AdvReac Type Severity Reaction Status Date / Time sulfamethoxazole Allergy Itching Verified 06/17/21 08:45 [From Bactrim] trimethoprim [From Bactrim] Allergy Itching Verified 06/17/21 08:45 sertraline [From Zoloft] AdvReac connor & Verified 06/17/21 08:45 sweaty venlafaxine [From Effexor] Tanaac connor & Verified 06/17/21 08:45 sweaty-see comment Review of Systems ROS Statement: Those systems with pertinent positive or pertinent negative responses have been documented in the HPI. ROS Other: All systems not noted in ROS Statement are negative. Constitutional: Denies: fever Eyes: Denies: eye pain ENT: Denies: ear pain Respiratory: Denies: cough Cardiovascular: Denies: chest pain Endocrine: Reports: fatigue Gastrointestinal: Denies: abdominal pain Genitourinary: Denies: dysuria Musculoskeletal: Denies: back pain Skin: Denies: rash Neurological: Denies: weakness Psychiatric: Reports: as per HPI, anxiety Past Medical History Past Medical History: Deep Vein Thrombosis (DVT), Eye Disorder, GERD/Reflux, Hyperlipidemia, Osteoarthritis (OA), Pulmonary Embolus (PE), Supraventricular Tachycardia (SVT) Additional Past Medical History / Comment(s): MACULAR DEGENERATION History of Any Multi-Drug Resistant Organisms: None Reported Past Surgical History: Cardiac Ablation, Joint Replacement Additional Past Surgical History / Comment(s): ANTERIOR TOTAL RIGHT HIP, Left hip sx. rt breast biopsies Past Anesthesia/Blood Transfusion Reactions: No Reported Reaction Past Psychological History: Anxiety Smoking Status: Never smoker Past Alcohol Use History: Rare Past Drug Use History: None Reported - Past Family History Mother Family Medical History: Cancer Father Family Medical History: Cancer, Myocardial Infarction ([place]) General Exam Limitations: no limitations General appearance: alert, in no apparent distress Head exam: Present: normocephalic Eye exam: Present: normal appearance Neck exam: Present: normal inspection Respiratory exam: Present: normal lung sounds bilaterally Cardiovascular Exam: Present: regular rate, normal rhythm GI/Abdominal exam: Present: soft. Absent: tenderness Back exam: Present: normal inspection Neurological exam: Present: alert. Absent: motor sensory deficit Psychiatric exam: Present: normal affect, normal mood Skin exam: Present: normal color Course Vital Signs 06/17/21 08:45 Temperature 98 F Pulse Rate 79 Respiratory 18 Rate Blood Pressure 134/65 O2 Sat by Pulse 98 Oximetry Medical Decision Making - Medical Decision Making Patient offered testing however refuses. Patient is receptive to trying Ativan and following up with her doctor. Disposition Clinical Impression: Anxiety Disposition: HOME SELF-CARE Condition: Stable Instructions (If sedation given, give patient instructions): Generalized Anxiety Disorder (ED) Additional Instructions: You are being given 1 pill of Ativan. Please try one half the pill at home as to avoid driving with this medication. May take the other half at bedtime. Consider [id number] ensure or similar supplement drinks, discuss this with her doctor. Return for chest pain or difficulty breathing, thoughts of self- harm, worsening or change in symptoms or other concerns. Is patient prescribed a controlled substance at d/c from ED?: No Referrals: Cameron Raphael MD [Primary Care Provider] - 1-2 days Time of Disposition: 09:08
== END 2021-06-17 09:29 | disposition home or self-care (01) ==
LOC: EC 08:36
DX: F41.9 Anxiety disorder, unspecified (principal); E78.5 Hyperlipidemia, unspecified; K21.9 Gastro-esophageal reflux disease without esophagitis; Z79.899 Other long term (current) drug therapy
CPT/HCPCS: 99283

== ENCOUNTER → 2021-11-05 | Outpatient (CLI) | payer MEDICARE ==
--- NOTE | 2021-11-05 16:12 | NM ---
EXAMINATION TYPE: NM parathyroid w/spect DATE OF EXAM: 11/05/2021 COMPARISON: NONE HISTORY: Hyperparathyroidism TECHNIQUE: Following administration of 25.1 mCi Tc99m Sestamibi. Anterior projection images of the neck and ches t were obtained 10 minutes and 3 hours post injection. SPECT images of the neck and chest were obtai guillermina and reconstructed in three axes. FINDINGS: Thyroid tracer washout: There appears to be normal washout of the thyroid. Parathyroid uptake: There is a persistent area of focal hyperintensity on delayed images in the right inferior thyroid bed region could be related to a parathyroid adenoma. Normal uptake: There is physiological tracer uptake in the myocardium, liver, salivary glands, and th yroid gland. IMPRESSION: 1. Findings suggestive for a parathyroid adenoma inferior right thyroid bed.
== END | disposition home or self-care (01) ==
LOC: RADNMMAIN 10:37
PROVIDERS: ATTEND Internal Medicine
DX: E21.3 Hyperparathyroidism, unspecified (principal)
CPT/HCPCS: 78071; A9500

== ENCOUNTER → 2021-12-25 | Outpatient (CLI) | payer MEDICARE | END | disposition home or self-care (01) | LOC: LABWHC1 08:31 | PROVIDERS: ATTEND Surgery | DX: E21.3 Hyperparathyroidism, unspecified (principal) | CPT/HCPCS: 36415; 82310; 83970 ==

== ENCOUNTER → 2022-01-06 | Outpatient (CLI) | payer MEDICARE ==
--- NOTE | 2022-01-07 11:32 | MM ---
Reason for Exam: Screening (asymptomatic). Last screening mammogram was performed 12 month(s) ago. Patient History: Menarche at age 14. Patient has no children. Left ovary removed at age 58. Right ovary removed at age 58. Hysterectomy at age 58. Postmenopausal. Other cancer. Patient used Hormonal Contraceptives for 1 year. 2010, US biopsy breast VAD RT on the Right side. Mother had breast cancer, age 47. Risk Values: [place] 5 year model risk: 4.1%. NCI Lifetime model risk: 8.7%. Prior Study Comparison: 12/30/2018 Bilateral Screening Mammogram, [facility]. 01/02/2020 Bilateral Screening Mammogram, [facility]. 01/04/2021 Bilateral Screening Mammogram, [facility]. Tissue Density: The breast tissue is heterogeneously dense. This may lower the sensitivity of mammography. Findings: Analyzed By CAD. There is no suspicious group of microcalcifications or new suspicious mass in either breast. A biopsy clip marker on the right noted. Benign calcification seen. Overall Assessment: Benign, BI-RAD 2 Management: Screening Mammogram of both breasts in 1 year. A clinical breast exam by your physician is recommended on an annual basis and results should be correlated with mammographic findings. Electronically signed and approved by: Lalo Ventura M.D. Radiologis
== END | disposition home or self-care (01) ==
LOC: RADMAMWWP 09:43
PROVIDERS: ATTEND Surgery
DX: Z12.31 Encounter for screening mammogram for malignant neoplasm of breast (principal); Z78.0 Asymptomatic menopausal state; Z80.3 Family history of malignant neoplasm of breast
CPT/HCPCS: 77063; 77067

== ENCOUNTER → 2022-01-16 | Outpatient (CLI) | payer MEDICARE ==
[2022-01-16 10:44] VITALS: BP 129/69; PULSE 60; RESP 17; TEMP 97.9
--- NOTE | 2022-01-16 10:55 | P.PN ---
Subjective Progress Note Date: 01/16/22 Principal diagnosis: Fibrocystic breast changes Fibrocystic breast changes Mrs. Ferrara is a 76-year-old white female who was initially seen approximately five years ago with a complaint of pain in her right breast. Since that time she has taken primrose oil and the pain is only present with deep palpation. She had a bilateral mammogram performed on . This was 3-D. This was benign BIRADS 2. The patient drinks decaffeinated coffee, she is not exposed to secondhand smoke, and she drinks approximately one soda a day and this is caffeine free. She does not smoke. She does not eat chocolate often. She is not taking primrose oil at this time, but has noticed a decreased discomfort in the right breast. Time she is not complaining of any lumps masses or nodules in either breast. She is not complaining about breast pain. She does have a nevus on the skin which is darker which we will evaluate. Family history: 1. Maternal grandmother with leukemia 2. Mother breast cancer 47 of breast cancer, locally advanced "hole in her side" 3. Father melanoma and prostate cancer Past surgical history: 1. Hysterectomy 2. Appendectomy 3. Bilateral hip replacement 4. Cardiac ablation/ done for SVT 5. Left-sided neck lump 6. right knee replacement 7. left knee replacement 8. scheduled for a para thyroid resection Past medical history: 1. hypotension; follows with cardiology 2. DVT 3. eye disorder 4. reflux 5. hyperlipedema 6. Pulmoary embolis 7. osteoarthrits 8. ? parathyroid elevated menarche: 14 : none, intentional menopause: about 51, hysterectomy at 61 took ovaries done for fibroid tumors hormones: none BCP: 5 years Social history: Smoking: Negative Alcohol: negative Drugs: Negative - Constitutional Constitutional: Reports sweats, Denies chills, Denies fever - EENT Eyes: bilateral decreased vision (macular degenertion), denies blurred vision, denies pain Ears: deny: decreased hearing, tinnitus Ears, nose, mouth and throat: Denies headache, Denies sore throat - Breasts Breasts: bilateral: as per HPI - Cardiovascular Comment: cardiac ablation, has PVC Cardiovascular: Reports recent hypotension, scheduled for a cardiac cath - Respiratory Respiratory: Denies cough - Gastrointestinal Gastrointestinal: Denies abdominal pain, Denies diarrhea, Denies nausea, Denies vomiting, reflux gone on medication - Menstruation Menstruation: Reports post hysterectomy, Reports postmenopausal - Musculoskeletal Comment: osteo arthritis - Integumentary Comment: pre-cancers removed - Neurological Neurological: Denies numbness, Denies weakness - Psychiatric Psychiatric: Denies anxiety, Denies depression - Endocrine Endocrine: Denies fatigue, Denies weight change - Hematologic/Lymphatic Comment: aspirin - Allergic/Immunologic Comment: Bactrim Objective - Vital Signs Vital signs: Vital Signs Temp 97.9 F 01/16/22 10:42 Pulse 60 01/16/22 10:42 Resp 17 01/16/22 10:42 BP 129/69 01/16/22 10:42 Pulse Ox 97 01/16/22 10:42 FiO2 Intake & Output 01/15/22 01/16/22 01/16/22 18:59 06:59 18:59 Weight 70.76 kg - Exam BMI: 23 - Constitutional General appearance: Present: cooperative - EENT Eyes: Present: EOMI ENT: Present: hearing grossly normal - Neck Neck: Present: normal ROM - Respiratory Respiratory: bilateral: CTA - Cardiovascular Rhythm: regular Heart sounds: normal: S1, S2 - Integumentary Integumentary: Present: normal turgor - Musculoskeletal Musculoskeletal: Present: gait normal - Psychiatric Psychiatric: Present: A&O x's 3, appropriate affect, intact judgment & insight - Additional findings Additional findings: Breast examination: BRA: 40C Inspection: Right breast larger than left, bilateral grade 3 ptosis, palpation: Right breast: Multi-positional exam fibrocystic changes or dominant masses or nodules of concern Right axilla: No adenopathy of concern Left breast: Multi-positional exam fibrocystic changes no dominant masses or nodules of concern Left axilla: No adenopathy of concern Assessment and Plan Assessment: Impression: 1. Hypotension, follows with cardiology 2. DVT 3. Eye disorder 4. Reflux 5. Hyperlipidemia 6. Pulmonary emboli in the past 7. Osteoarthritis 8. Bilateral fibrocystic breast changes 9. Recent bilateral mammogram BIRADS 2 10. Recently diagnosed with hyperparathyroidism Plan: Bilateral mammogram in 1 year Patient to call sooner any questions or concerns Cc: Dr. Mcneil
== END | disposition home or self-care (01) ==
LOC: WWCWWP 10:32
PROVIDERS: ATTEND Surgery
DX: Z53.9 Procedure and treatment not carried out, unspecified reason (principal)

== ENCOUNTER 2022-02-26 06:56 | Day surgery (SDC) | payer MEDICARE ==
[~2022-02-26 06:56] MED LIST changes: -ACETAMINOPHEN TAB 500 MG TAB PO ONE; +ACETAMINOPHEN TAB 500 MG TAB PO PRN; +HEPARIN SODIUM,PORCINE/PF 5,000 UNIT/0.5 ML SYRINGE SQ PRN; +LACTATED RINGERS 1,000 ML IV SCH; -MELOXICAM 7.5 MG TAB PO ONE; -MIDAZOLAM 2 MG/2 ML VIAL IV PRN; +Pre Op ABX Message 1 EACH MISC MISCELLANE ONE; -ROPIVACAINE 246.25 MG, EPINEPHrine 0.5 MG, KETOROLAC 30 MG, cloNIDine HCL/PF 80 MCG, WA... MISCELLANE ONE; -TRANEXAMIC ACID 1,000 MG in SODIUM CHLORIDE 0.9% 100 ML IVPB ONE
[2022-02-26] MEDS ORDERED: fentaNYL (PF) 50 MCG/ML 2 ML AMP IV PRN (07:00)
[2022-02-26 08:00] LABS: Basophils # (A) 0.1 k/uL (0-0.2); Basophils % (A) 1 %; Eosinophils # (A) 0.1 k/uL (0-0.7); Eosinophils % (A) 2 %; HCT 44.8 % (34.0-46.0); HGB 14.3 gm/dL (11.4-16.0); Lymphocytes # (A) 1.9 k/uL (1.0-4.8); Lymphocytes % (A) 28 %; MCH 30.4 pg (25.0-35.0); MCHC 31.8 g/dL (31.0-37.0); MCV 95.5 fL (80.0-100.0); Mean Platelet Volume 7.4; Monocytes # (A) 0.6 k/uL (0-1.0); Monocytes % (A) 9 %; Neutrophils # (A) 3.9 k/uL (1.3-7.7); Neutrophils % (A) 58 %; Platelet Count 230 k/uL (150-450); RBC 4.69 m/uL (3.80-5.40); RDW 12.4 % (11.5-15.5); WBC 6.6 k/uL (3.8-10.6)
[2022-02-26] MEDS ORDERED: LIDOCAINE 2% INJ 20 MG/ML (2 ML VIAL) ONE (08:05)
[2022-02-26] MEDS ORDERED: PROPOFOL 10 MG/ML 20 ML VIAL IV ONE (08:05)
[2022-02-26] MEDS ORDERED: KETAMINE 10 MG/ML 20 ML VIAL ONE (08:05)
[2022-02-26] MEDS ORDERED: SUCCINYLCHOLINE CHLORIDE 200 MG/10 ML VIAL IV ONE (08:05)
[2022-02-26] MEDS ORDERED: MIDAZOLAM 2 MG/2 ML VIAL ONE (08:05)
[2022-02-26] MEDS ORDERED: ePHEDrine 50 MG/ML 1 ML VIAL ONE (08:05)
[2022-02-26] MEDS ORDERED: fentaNYL (PF) 50 MCG/ML 2 ML AMP ONE (08:05)
[2022-02-26 08:13] LABS: ALT 23 U/L (4-34); AST 30 U/L (14-36); African American GFR (CKD) >90 (>60 ml/min/1.73 sqM); Albumin 4.4 g/dL (3.5-5.0); Alkaline Phosphatase 103 U/L (38-126); Anion Gap 6 mmol/L; Blood Urea Nitrogen 15 mg/dL (7-17); Calcium 9.8 mg/dL (8.4-10.2); Carbon Dioxide 31 mmol/L (22-30); Chloride 101 mmol/L (98-107); Glucose 92 mg/dL (74-99); Non-African American GFR(CKD) 81 (>60 ml/min/1.73 sqM); Sodium 138 mmol/L (137-145); Total Bilirubin 0.5 mg/dL (0.2-1.3); Total Protein 7.3 g/dL (6.3-8.2)
[2022-02-26] MEDS ORDERED: BUPIVACAIN-EPI 0.25%-1:200,000 30 ML VIAL SQ ONE ×2 (08:36)
[2022-02-26] MEDS ORDERED: LACTATED RINGERS 1,000 ML IV ONE ×2 (09:25→10:18)
--- NOTE | 2022-02-26 09:49 | P.GSHP ---
History of Present Illness H&P Date: 02/26/22 Chief Complaint: Right lower parathyroid adenoma This a 76-year-old female who is recently diagnosed with a right lower parathyroid adenoma. Patient has had elevated calciums. Patient presents today for excision of right lower parathyroid adenoma. 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 DVT & PE 2009 History of Any Multi-Drug Resistant Organisms: None Reported Past Surgical History: Appendectomy, Breast Surgery, Cardiac Ablation, Joint Replacement Additional Past Surgical History / Comment(s): constantino hips & constantino. knee replacements,. rt breast biopsies Past Anesthesia/Blood Transfusion Reactions: No Reported Reaction Smoking Status: Never smoker - Past Family History Mother Family Medical History: Cancer Father Family Medical History: Cancer, Myocardial Infarction ([place]) Medications and Allergies Home Medications Medication Instructions Recorded Confirmed Type Atorvastatin [Lipitor] 10 mg PO DAILY 10/25/15 02/26/22 History Celecoxib [CeleBREX] 200 mg PO DAILY 01/17/19 02/26/22 History Venlafaxine HCl ER [Effexor Xr] 37.5 mg PO DAILY 06/06/21 02/26/22 History Metoprolol Succinate [Metoprolol 25 mg PO DAILY 01/16/22 02/26/22 History Succinate ER] Allergies Allergy/AdvReac Type Severity Reaction Status Date / Time sulfamethoxazole Allergy Itching Verified 02/21/22 12:17 [From Bactrim] trimethoprim [From Bactrim] Allergy Itching Verified 02/21/22 12:17 Surgical - Exam Vital Signs Temp Pulse Resp BP Pulse Ox 97.2 F L 53 L 16 123/60 98 02/26/22 07:29 02/26/22 07:29 02/26/22 07:29 02/26/22 07:29 02/26/22 07:29 - General well developed, well nourished, no distress - Eyes PERRL - ENT normal pinna - Neck no masses - Respiratory normal expansion - Cardiovascular Rhythm: regular - Abdomen Abdomen: soft, non tender Results - Labs 02/26/22 08:06 02/26/22 08:06 Abnormal Lab Results - Last 24 Hours (Table) 02/26/22 Range/Units 08:06 Carbon Dioxide 31 H (22-30) mmol/L Diabetes panel 02/26/22 Range/Units 08:06 Sodium 138 (137-145) mmol/L Potassium 5.0 (3.5-5.1) mmol/L Chloride 101 (98-107) mmol/L Carbon Dioxide 31 H (22-30) mmol/L BUN 15 (7-17) mg/dL Creatinine 0.73 (0.52-1.04) mg/dL Glucose 92 (74-99) mg/dL Calcium 9.8 (8.4-10.2) mg/dL AST 30 (14-36) U/L ALT 23 (4-34) U/L Alkaline Phosphatase 103 (38-126) U/L Total Protein 7.3 (6.3-8.2) g/dL Albumin 4.4 (3.5-5.0) g/dL Calcium panel 02/26/22 Range/Units 08:06 Calcium 9.8 (8.4-10.2) mg/dL Albumin 4.4 (3.5-5.0) g/dL Pituitary panel 02/26/22 Range/Units 08:06 Sodium 138 (137-145) mmol/L Potassium 5.0 (3.5-5.1) mmol/L Chloride 101 (98-107) mmol/L Carbon Dioxide 31 H (22-30) mmol/L BUN 15 (7-17) mg/dL Creatinine 0.73 (0.52-1.04) mg/dL Glucose 92 (74-99) mg/dL Calcium 9.8 (8.4-10.2) mg/dL Adrenal panel 02/26/22 Range/Units 08:06 Sodium 138 (137-145) mmol/L Potassium 5.0 (3.5-5.1) mmol/L Chloride 101 (98-107) mmol/L Carbon Dioxide 31 H (22-30) mmol/L BUN 15 (7-17) mg/dL Creatinine 0.73 (0.52-1.04) mg/dL Glucose 92 (74-99) mg/dL Calcium 9.8 (8.4-10.2) mg/dL Total Bilirubin 0.5 (0.2-1.3) mg/dL AST 30 (14-36) U/L ALT 23 (4-34) U/L Alkaline Phosphatase 103 (38-126) U/L Total Protein 7.3 (6.3-8.2) g/dL Albumin 4.4 (3.5-5.0) g/dL Assessment and Plan Assessment: Parathyroid adenoma. Patient understands the risks of surgery. Patient's also aware that the parathyroid adenoma may not be in the position that was seen on the parathyroid scan.
--- NOTE | 2022-02-26 09:57 | P.OP ---
Date of Procedure: 02/26/22 Preoperative Diagnosis: Parathyroid adenoma Postoperative Diagnosis: Parathyroid adenoma Procedure(s) Performed: Excision of right lower parathyroid adenoma Anesthesia: JAS Surgeon: Connor Lantigua Estimated Blood Loss (ml): 5 Pathology: other (Right parathyroid adenoma) Condition: stable Disposition: PACU Description of Procedure: The patient's placed on the operating table in the supine position. Her neck was extended. She was then placed in modified beachchair position. Her neck was prepped and draped usual sterile fashion. Standard [place] incision was made approximately 2 cm above the sternal notch. Electrocautery the platysma was divided. The platysma flaps then elevated using left cautery. The strap muscles were then divided midline. The right thyroid gland was then exposed. A pair of Bland retractors were used to expose the right thyroid gland. The strap muscle retracted laterally. The inferior portion of the gland was examined. And just below the inferior thyroid NIH there was a 2 cm parathyroid adenoma seen. This was meticulous dissected using Harmonic scissors. His was sent to pathology and was confirmed to be the parathyroid adenoma. The superior edge of the right thyroid gland was also examined. There is no evidence of any parathyroid adenoma present in this location. At this point the strap muscles reapproximated midline using 3-0 Vicryl suture. This was very approximate using 3-0 Vicryl suture. The skin was closed interrupted 3-0 Monocryl suture. There monitors applied. Patient top she will sent to recovery in stable condition.
[2022-02-26] MEDS ORDERED: NALOXONE 0.4 MG/ML 1 ML VIAL IV PRN (10:18)
[2022-02-26] MEDS ORDERED: HYDROcodone/APAP 5-325MG 1 EACH TAB PO PRN (10:18)
[2022-02-26] MEDS ORDERED: ONDANSETRON 4 MG/2 ML VIAL IVP PRN (10:18)
[2022-02-26] MEDS ORDERED: HYDROmorphone 0.5 MG/0.5 ML SYRINGE IVP PRN (10:18)
--- NOTE | 2022-02-26 15:11 | P.CONS ---
History of Present Illness - Reason for Consult Consult date: 02/26/22 - Chief Complaint med management - History of Present Illness 76-year-old female with hx of hyperlipidemia, hyperparathyroidism, depression who was recently diagnosed with a right lower parathyroid adenoma. Patient has had elevated calciums with elevated PTH. She was seen s/p resection of the par athyroid adenoma. Doing well currently. She denied having any fevers, chills, nausea or vomiting. No chest pain or shortness of breath. No diarrhea, no urinary symptoms. Still has mild incisional pain. Review of Systems Complete review of system performed, pertinent positives per HPI, otherwise negative Past Medical History Past Medical History: Cancer, Deep Vein Thrombosis (DVT), Eye Disorder, GERD/Reflux, Hyperlipidemia, Memory Impairment, Osteoarthritis (OA), Pulmonary Embolus (PE), Supraventricular Tachycardia (SVT) Additional Past Medical History / Comment(s): possible MACULAR DEGENERATION, skin cancer, hx. DVT & PE 2010 History of Any Multi-Drug Resistant Organisms: None Reported Past Surgical History: Appendectomy, Breast Surgery, Cardiac Ablation, Joint Replacement Additional Past Surgical History / Comment(s): constantino hips & constantino. knee replacements,. rt breast biopsies Past Anesthesia/Blood Transfusion Reactions: No Reported Reaction Past Psychological History: Anxiety Smoking Status: Never smoker Past Alcohol Use History: Rare Past Drug Use History: None Reported - Past Family History Mother Family Medical History: Cancer Father Family Medical History: Cancer, Myocardial Infarction ([place]) Medications and Allergies Home Medications Medication Instructions Recorded Confirmed Type Atorvastatin [Lipitor] 10 mg PO DAILY 10/25/15 02/26/22 History Celecoxib [CeleBREX] 200 mg PO DAILY 01/17/19 02/26/22 History Venlafaxine HCl ER [Effexor Xr] 37.5 mg PO DAILY 06/06/21 02/26/22 History Metoprolol Succinate [Metoprolol 25 mg PO DAILY 01/16/22 02/26/22 History Succinate ER] Allergies Allergy/AdvReac Type Severity Reaction Status Date / Time sulfamethoxazole Allergy Itching Verified 02/21/22 12:17 [From Bactrim] trimethoprim [From Bactrim] Allergy Itching Verified 02/21/22 12:17 Physical Exam Vitals: Vital Signs Temp Pulse Resp BP BP Pulse Ox 02/26/22 13:00 98.2 F 53 L 18 115/64 95 02/26/22 12:00 98.0 F 54 L 18 135/61 94 L 02/26/22 11:00 98.0 F 56 L 18 145/62 98 02/26/22 10:45 67 15 122/60 95 02/26/22 10:30 97.0 F L 68 15 129/71 97 02/26/22 10:15 59 L 16 130/75 93 L 02/26/22 10:00 75 16 149/75 93 L 02/26/22 09:45 69 16 151/72 100 02/26/22 09:31 97.4 F L 77 16 154/80 98 02/26/22 07:29 97.2 F L 53 L 16 123/60 98 Intake and Output 02/26/22 02/26/22 02/26/22 06:59 14:59 22:59 Intake Total 1610 Output Total 30 Balance 1580 Intake: IV 1250 Oral 360 Output: Estimated Blood Loss 30 Other: # Voids 1 Weight 71.5 kg Constitutional: No acute distress, conversant, pleasant Eyes:Anicteric sclerae, moist conjunctiva, no lid-lag, PERRLA, ENMT: Oropharynx clear, no erythema, exudates Neck: Supple, FROM, no masses, or JVD, No carotid bruits, No thyromegaly Lungs: Clear to auscultation, Clear to percussion, Normal respiratory effort, no accessory muscle use Cardiovascular: Heart regular in rate and rhythm, No murmurs, gallops, or rubs, No peripheral edema Abdominal: Soft, Nontender, no guarding, rebound or rigidity, Normoactive bowel sounds, No hepatomegaly, No splenomegaly, No palpable mass Skin: Normal temperature, tone, texture, turgor, no induration, No subcutaneous nodules, No rash, lesions, No ulcers Extremities: No digital cyanosis, No clubbing, Pedal pulses intact and symmetrical, Radial pulses intact and symmetrical, No calf tenderness Psychiatric: Alert and oriented to person, place and time, appropriate affect, intact judgement Neuro: Muscles Strength 5/5 in all 4 extremities, Sensation to light touch grossly present throughout, Cranial nerves II-XII grossly intact, no focal sensory deficits Results CBC & Chem 7: 02/26/22 08:06 02/26/22 08:06 Labs: Abnormal Lab Results - Last 24 Hours (Table) 02/26/22 Range/Units 08:06 Carbon Dioxide 31 H (22-30) mmol/L Assessment and Plan Plan: Persistent hypercalcemia Primary hyperparathyroidism Parathyroid adenoma Status post partial parathyroidectomy Management per general surgery including DVT prophylaxis and pain control Chronic GERD/Reflux, Hyperlipidemia, Osteoarthritis (OA), Supraventricular Tachycardia (SVT) status post ablation All stable Resume meds Thank you for the consultation please call [facility] with [facility].
[2022-02-27 07:47] VITALS: BP 103/62; PULSE 69; RESP 18; TEMP 98.2
[2022-02-27] MEDS ORDERED: ENOXAPARIN 40 MG/0.4 ML SYRINGE SQ SCH (09:00)
[2022-02-27] MEDS ORDERED: ATORVASTATIN 10 MG TAB PO SCH (09:00)
[2022-02-27] MEDS ORDERED: METOPROLOL SUCCINATE (ER) 25 MG TAB.ER.24H PO SCH (09:00)
[2022-02-27] MEDS ORDERED: VENLAFAXINE HCL ER 37.5 MG CAP PO SCH (09:00)
--- NOTE | 2022-02-27 10:18 | P.DS ---
Providers Expected date of discharge: 02/27/22 Attending physician: Connor Lantigua Consults: 02/26/22 10:18 Consult Physician Routine Consulting Provider: Faith Cade Consult Reason/Comments: Medical management Do you want consulting provider notified?: Yes Primary care physician: Cameron Raphael MD Hospital Course: Discharge diagnosis 1. Parathyroid adenoma status post Excision of right lower parathyroid adenoma Hospital course This is a 76-year-old female with right lower parathyroid adenoma. Patient has had elevated calcium levels. Patient is status post excision of right lower parathyroid adenoma. She tolerated surgery well. Her pain is controlled. Denies any hoarseness. Denies any difficulty swallowing. She is up and ambulating. She's afebrile. She is stable for discharge. Incision site is clean dry and intact. Physician Mid Level Project Manager note has been reviewed by physician. Signing provider agrees with the documented findings, assessment, and plan of care. Patient Condition at Discharge: Stable Plan - Discharge Summary Discharge Rx Participant: Yes New Discharge Prescriptions: New HYDROcodone/APAP 5-325MG [[place] 5-325] 1 tab PO Q6HR PRN 3 Days #12 tab PRN Reason: Pain Continue Atorvastatin [Lipitor] 10 mg PO DAILY Venlafaxine HCl ER [Effexor XR] 37.5 mg PO DAILY Metoprolol Succinate [Metoprolol Succinate ER] 25 mg PO DAILY Discontinued Celecoxib [CeleBREX] 200 mg PO DAILY Discharge Medication List Atorvastatin [Lipitor] 10 mg PO DAILY 10/25/15 [History] Venlafaxine HCl ER [Effexor XR] 37.5 mg PO DAILY 06/06/21 [History] Metoprolol Succinate [Metoprolol Succinate ER] 25 mg PO DAILY 01/16/22 [History] HYDROcodone/APAP 5-325MG [[place] 5-325] 1 tab PO Q6HR PRN 3 Days #12 tab 02/27/22 [Rx] Follow up Appointment(s)/Referral(s): Connor Lantigua MD [STAFF PHYSICIAN] - 1 Week Activity/Diet/Wound Care/Special Instructions: No driving while taking [place] No lifting over 10 pounds Shower daily. No soaking or tub baths for 2 weeks Very light activity until you are reevaluated at your follow up appointment with your surgeon Hold on taking celebrex for 1 week after surgery Discharge Disposition: HOME SELF-CARE
== END 2022-02-27 11:15 | disposition home or self-care (01) ==
LOC: OR 06:56 → 6NMEDSUR 09:31 → OR 02-27 11:15
PROVIDERS: ATTEND Surgery
DX: D35.1 Benign neoplasm of parathyroid gland (principal); K21.9 Gastro-esophageal reflux disease without esophagitis; E78.5 Hyperlipidemia, unspecified; R41.3 Other amnesia; M19.90 Unspecified osteoarthritis, unspecified site; I47.1 Supraventricular tachycardia; H57.9 Unspecified disorder of eye and adnexa; Z86.718 Personal history of other venous thrombosis and embolism; Z86.711 Personal history of pulmonary embolism; Z85.828 Personal history of other malignant neoplasm of skin; Z90.89 Acquired absence of other organs; Z98.82 Breast implant status; Z98.890 Other specified postprocedural states; Z86.79 Personal history of other diseases of the circulatory system; Z80.9 Family history of malignant neoplasm, unspecified; Z82.49 Family history of ischemic heart disease and other diseases of the circulatory system; Z88.2 Allergy status to sulfonamides; Z88.8 Allergy status to other drugs, medicaments and biological substances; Z79.899 Other long term (current) drug therapy
CPT/HCPCS: 60500; 88305; 80053; 82310; 85025; 88331; J2250; J0330; J1100; J0690; J2405; J3010; J2704; J1644; J2001

== ENCOUNTER → 2022-03-21 | Outpatient (CLI) | payer MEDICARE ==
--- NOTE | 2022-03-21 09:45 | BD ---
EXAMINATION TYPE: Axial Bone Density DATE OF EXAM: 03/21/2022 COMPARISON: 11-10-2000 CLINICAL HISTORY: 76 years year old Female. ICD-10 CODE: Z78.0 POST MENOPAUSAL STATUS Height: 67IN Weight: 155 FRAX RISK QUESTIONS: Family History (Parent hip fracture): YES Secondary Osteoporosis: RISK FACTORS HISTORY OF: Surgery to Hip(right/left)ZULEYMA TOTAL HIP REPLACEMENT When: WITHIN LAST 5 YEARS Postmenopausal woman: YES HYSTERECTOMY AT 58 Lost more than 2 inches in height since high school: YES MEDICATIONS: Additional Medications: ANXIETY MED, BP MED Additional History: PARATHYROID SURGERY EXAM MEASUREMENTS: Bone mineral densitometry was performed using the [employer] System. Bone mineral density as measured about the Lumbar spine is: ----- L1-L4(G/cm2): 1.268 T Score Values are as follows: ----- L1: -0.1 ----- L2: -0.7 ----- L3: 0.6 ----- L4: 2.5 ----- L1-L4: 0.7 Bone mineral density has: Decreased -1.9% since study of: 11.10.2000 Bone mineral density about the L Wrist (g/cm2): 0.505 T Score values are as follows: -----Dist. R+U: -2.7 -----Prox. R+U: -2.0 -----Radius total: -3.0 FIRST WRIST DEXA IMPRESSION: Osteoporosis (T Score less than -2.5). There is increased fracture risk and therapy is usually indicated based on age. Re-Screen 1-2 years. NOTE: T-SCORE=SD OF THE YOUNG ADULT MEAN.
== END | disposition home or self-care (01) ==
LOC: RADBDWWP 07:49
PROVIDERS: ATTEND Internal Medicine
DX: M81.0 Age-related osteoporosis without current pathological fracture (principal)
CPT/HCPCS: 77080

== ENCOUNTER → 2022-03-28 | Outpatient (CLI) | payer MEDICARE ==
--- NOTE | 2022-03-31 16:10 | US ---
EXAMINATION TYPE: US arterial LE single level DATE OF EXAM: 03/28/2022 12:44 PM CLINICAL HISTORY: I73.9 PVD. PVD Doppler Waveforms: Right: Multiphasic Left: Multiphasic Ankle-Brachial Indices: Right: 1.2 Left: 1.3 Toe Brachial Indices: Right: 0.7 Left: 0.6 IMPRESSION: Normal ankle-brachial indices
== END | disposition home or self-care (01) ==
LOC: RADUSWWP 12:05
PROVIDERS: ATTEND Internal Medicine
DX: I73.9 Peripheral vascular disease, unspecified (principal)
CPT/HCPCS: 93922

== ENCOUNTER 2022-07-20 11:02 | Emergency (ER) | payer MEDICARE ==
--- NOTE | 2022-07-20 11:45 | ED ---
General Adult HPI - General Chief complaint: Recheck/Abnormal Lab/Rx Stated complaint: abn labs Time Seen by Provider: 07/20/22 11:29 Source: patient, RN notes reviewed Mode of arrival: ambulatory Limitations: no limitations - History of Present Illness Initial comments: 77 year old female with no significant past medical history presents to the emergency department with a chief complaint of abnormal labs. She reports that she had blood work drawn by her primary care doctor on Thursday, he received a call this morning saying that she had high potassium in her result was 6.7. She was recommended to come here for a redraw. Eyes any fever, chills, headache, chest pain, palpitations, cough, shortness of breath, abdominal pain, nausea, vomiting, diarrhea - Related Data Home Medications Medication Instructions Recorded Confirmed Atorvastatin [Lipitor] 10 mg PO HS 10/25/15 07/20/22 Venlafaxine HCl ER [Effexor XR] 37.5 mg PO HS 06/06/21 07/20/22 Alendronate Sodium [Fosamax] 70 mg PO WE 07/20/22 07/20/22 Celecoxib [CeleBREX] 200 mg PO DAILY 07/20/22 07/20/22 Metoprolol Tartrate [Lopressor] 25 mg PO DAILY 07/20/22 07/20/22 Allergies Allergy/AdvReac Type Severity Reaction Status Date / Time sulfamethoxazole Allergy Itching Verified 07/20/22 13:23 [From Bactrim] trimethoprim [From Bactrim] Allergy Itching Verified 07/20/22 13:23 Review of Systems ROS Statement: Those systems with pertinent positive or pertinent negative responses have been documented in the HPI. ROS Other: All systems not noted in ROS Statement are negative. 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 DVT & PE 2010 History of Any Multi-Drug Resistant Organisms: None Reported Past Surgical History: Appendectomy, Breast Surgery, Cardiac Ablation, Joint Replacement Additional Past Surgical History / Comment(s): constantino hips & constantino. knee replacements,. rt breast biopsies Past Anesthesia/Blood Transfusion Reactions: No Reported Reaction Past Psychological History: Anxiety Smoking Status: Never smoker Past Alcohol Use History: Rare Past Drug Use History: None Reported - Past Family History Mother Family Medical History: Cancer Father Family Medical History: Cancer, Myocardial Infarction (RI) General Exam Limitations: no limitations General appearance: alert, in no apparent distress Head exam: Present: atraumatic, normocephalic, normal inspection Eye exam: Present: normal appearance, PERRL, EOMI. Absent: scleral icterus, conjunctival injection, periorbital swelling ENT exam: Present: normal exam, mucous membranes moist Neck exam: Present: normal inspection. Absent: tenderness, meningismus, lymphadenopathy Respiratory exam: Present: normal lung sounds bilaterally. Absent: respiratory distress, wheezes, rales, rhonchi, stridor Cardiovascular Exam: Present: regular rate, normal rhythm, normal heart sounds. Absent: systolic murmur, diastolic murmur, rubs, gallop, clicks GI/Abdominal exam: Present: soft, normal bowel sounds. Absent: distended, tenderness, guarding, rebound, rigid Extremities exam: Present: normal inspection, full ROM, normal capillary refill. Absent: tenderness, pedal edema, joint swelling, calf tenderness Back exam: Present: normal inspection Neurological exam: Present: alert, oriented X3, CN II-XII intact Psychiatric exam: Present: normal affect, normal mood Skin exam: Present: warm, dry, intact, normal color. Absent: rash Course Vital Signs 07/20/22 07/20/22 07/20/22 11:12 12:38 13:51 Temperature 98 F 97.8 F Pulse Rate 62 56 L 57 L Respiratory 16 16 18 Rate Blood Pressure 114/65 95/62 124/74 O2 Sat by Pulse 99 98 98 Oximetry EKG Findings - EKG Comments: EKG Findings:: I interpreted the following: EKG performed at 13:49. Rate 53 bpm and sinus bradycardia. NV interval 156, QRS duration 115, QT/QTc 450/432 Medical Decision Making - Medical Decision Making Was pt. sent in by a medical professional or institution (, PA, MEDICAL LAB TECHNICIAN, urgent care, hospital, or retirement...) When possible be specific @ -[No] Did you speak to anyone other than the patient for history (EMS, parent, family, police, friend...)? What history was obtained from this source @ -[No] Did you review nursing and triage notes (agree or disagree)? Why? @ -[I reviewed and agree with nursing and triage notes] Were old charts reviewed (outside hosp., previous admission, EMS record, old EKG, old radiological studies, urgent care reports/EKG's, retirement records)? Report findings @ -[No old charts were reviewed] Differential Diagnosis (chest pain, altered mental status, abdominal pain women, abdominal pain men, vaginal bleeding, weakness, fever, dyspnea, syncope, headache, dizziness, GI bleed, back pain, seizure, CVA, palpatations, mental health)? @ -[not applicable] EKG interpreted by me (3pts min.). @ -[As above] X-rays interpreted by me (1pt min.). @ -[None done] CT interpreted by me (1pt min.). @ -[None done] U/S interpreted by me (1pt. min.). @ -[None done] What testing was considered but not performed or refused? (CT, X-rays, U/S, labs)? Why? @ -[None] What meds were considered but not given or refused? Why? @ -[None] Did you discuss the management of the patient with other professionals (professionals i.e. , PA, MEDICAL LAB TECHNICIAN, lab, RT, psych nurse, foster care social worker, ethylene oxide panelboard operator, teacher, interface control officer, case supervisor)? Give summary @ -[No] Was smoking cessation discussed for >3mins.? @ -[No] Was critical care preformed (if so, how long)? @ -[No] Were there social determinants of health that impacted care today? How? (Homelessness, low income, unemployed, alcoholism, drug addiction, transportation, low edu. Level, literacy, decrease access to med. care, alf, rehab)? @ -[No] Was there de-escalation of care discussed even if they declined (Discuss DNR or withdrawal of care, Hospice)? DNR status @ -[No] What co-morbidities impacted this encounter? (DM, HTN, Smoking, COPD, CAD, Cancer, CVA, ARF, Chemo, Hep., AIDS, mental health diagnosis, sleep apnea, morb id obesity)? @ -[None] Was patient admitted / discharged? Hospital course, mention meds given and route, prescriptions, significant lab abnormalities, going to OR and other pertinent info. @ -77 -year-old female presents to the emergency department with abnormal labs. Patient had thorough history and physical performed, physical exam is essentially unremarkable, heart rate regular rate and rhythm lungs clear to auscultation bilaterally abdomen soft and non-tender. Patient had lab work and imaging performed which was essentially unremarkable, K 5.1. Patient was given 1 L of IV fluids for symptomatic relief while in the ED. I discussed the results in detail with the patient, all questions and concerns were addressed. Patient was encouraged to follow up with PCP in 1-2 days.. Patient was discharged in stable condition. I discussed the case with NOHEMY Alex who agrees with plan of care. Undiagnosed new problem with uncertain prognosis? @ -[No] Drug Therapy requiring intensive monitoring for toxicity (Heparin, Nitro, Insulin, Cardizem)? @ -[No] Were any procedures done? @ -[No] Diagnosis/symptom? @ -abnormal lab result Acute, or Chronic, or Acute on Chronic? @ -acute Uncomplicated (without systemic symptoms) or Complicated (systemic symptoms)? @ -uncomplicated Side effects of treatment? @ -[No] Exacerbation, Progression, or Severe Exacerbation? @ -[No] Poses a threat to life or bodily function? How? (Chest pain, USA, RI, pneumonia, PE, COPD, DKA, ARF, appy, cholecystitis, CVA, Diverticulitis, Homicidal, Suicidal, threat to staff... and all critical care pts) @ -[No] - Lab Data Result diagrams: 07/20/22 12:22 07/20/22 12:22 Lab Results 07/20/22 07/20/22 07/20/22 Range/Units 12:22 12:22 12:22 WBC 5.9 (3.8-10.6) k/uL RBC 4.56 (3.80-5.40) m/uL Hgb 13.7 (11.4-16.0) gm/dL Hct 41.5 (34.0-46.0) % MCV 90.9 (80.0-100.0) fL MCH 30.1 (25.0-35.0) pg MCHC 33.1 (31.0-37.0) g/dL RDW 12.7 (11.5-15.5) % Plt Count 204 (150-450) k/uL MPV 7.6 Neutrophils % 66 % Lymphocytes % 24 % Monocytes % 7 % Eosinophils % 1 % Basophils % 0 % Neutrophils # 3.9 (1.3-7.7) k/uL Lymphocytes # 1.4 (1.0-4.8) k/uL Monocytes # 0.4 (0-1.0) k/uL Eosinophils # 0.1 (0-0.7) k/uL Basophils # 0.0 (0-0.2) k/uL Sodium 136 L (137-145) mmol/L Potassium 5.1 (3.5-5.1) mmol/L Chloride 103 (98-107) mmol/L Carbon Dioxide 28 (22-30) mmol/L Anion Gap 5 mmol/L BUN 18 H (7-17) mg/dL Creatinine 0.72 (0.52-1.04) mg/dL Est GFR (CKD-EPI)AfAm >90 (>60 ml/min/1.73 sqM) Est GFR (CKD-EPI)NonAf 82 (>60 ml/min/1.73 sqM) Glucose 95 (74-99) mg/dL Calcium 8.5 (8.4-10.2) mg/dL Magnesium 2.0 (1.6-2.3) mg/dL Total Bilirubin 0.6 (0.2-1.3) mg/dL AST 31 (14-36) U/L ALT 29 (4-34) U/L Alkaline Phosphatase 72 (38-126) U/L Troponin I <0.012 (0.000-0.034) ng/mL Total Protein 7.1 (6.3-8.2) g/dL Albumin 4.2 (3.5-5.0) g/dL Disposition Clinical Impression: Abnormal laboratory test Disposition: HOME SELF-CARE Condition: Stable Additional Instructions: This return to the nearest emergency department if symptoms worsen or persist. Is patient prescribed a controlled substance at d/c from ED?: No Referrals: aCmeron Raphael MD [Primary Care Provider] - 1-2 days Time of Disposition: 13:19
[2022-07-20] MEDS ORDERED: SODIUM CHLORIDE 0.9% 1,000 ML IV ONE (12:00)
[2022-07-20 12:29] LABS: Basophils % (A) 0 %; Eosinophils # (A) 0.1 k/uL (0-0.7); Eosinophils % (A) 1 %; HCT 41.5 % (34.0-46.0); HGB 13.7 gm/dL (11.4-16.0); Lymphocytes # (A) 1.4 k/uL (1.0-4.8); Lymphocytes % (A) 24 %; MCH 30.1 pg (25.0-35.0); MCHC 33.1 g/dL (31.0-37.0); MCV 90.9 fL (80.0-100.0); Mean Platelet Volume 7.6; Monocytes # (A) 0.4 k/uL (0-1.0); Monocytes % (A) 7 %; Neutrophils # (A) 3.9 k/uL (1.3-7.7); Neutrophils % (A) 66 %; Platelet Count 204 k/uL (150-450); RBC 4.56 m/uL (3.80-5.40); RDW 12.7 % (11.5-15.5); WBC 5.9 k/uL (3.8-10.6)
[2022-07-20 12:48] LABS: ALT 29 U/L (4-34); AST 31 U/L (14-36); African American GFR (CKD) >90 (>60 ml/min/1.73 sqM); Albumin 4.2 g/dL (3.5-5.0); Alkaline Phosphatase 72 U/L (38-126); Anion Gap 5 mmol/L; Blood Urea Nitrogen 18 mg/dL (7-17); Calcium 8.5 mg/dL (8.4-10.2); Carbon Dioxide 28 mmol/L (22-30); Chloride 103 mmol/L (98-107); Glucose 95 mg/dL (74-99); Non-African American GFR(CKD) 82 (>60 ml/min/1.73 sqM); Potassium 5.1 mmol/L (3.5-5.1); Sodium 136 mmol/L (137-145); Total Bilirubin 0.6 mg/dL (0.2-1.3); Total Protein 7.1 g/dL (6.3-8.2)
[2022-07-20 13:52] VITALS: BP 124/74; PULSE 57; RESP 18; TEMP 97.8
== END 2022-07-20 13:53 | disposition home or self-care (01) ==
LOC: EC 11:02
DX: R79.9 Abnormal finding of blood chemistry, unspecified (principal); E78.5 Hyperlipidemia, unspecified; M19.90 Unspecified osteoarthritis, unspecified site; F41.9 Anxiety disorder, unspecified; Z79.899 Other long term (current) drug therapy; Z86.718 Personal history of other venous thrombosis and embolism; Z86.711 Personal history of pulmonary embolism; Z88.2 Allergy status to sulfonamides
CPT/HCPCS: 36415; 80053; 83735; 84484; 85025; 93005; 96360; 99284

== ENCOUNTER 2022-09-23 05:53 | Observation (INO) | payer MEDICARE ==
[2022-09-23 06:34] LABS: Basophils % (A) 0 %; Eosinophils # (A) 0.1 k/uL (0-0.7); Eosinophils % (A) 1 %; HCT 41.7 % (34.0-46.0); HGB 14.6 gm/dL (11.4-16.0); Lymphocytes # (A) 1.9 k/uL (1.0-4.8); Lymphocytes % (A) 44 %; MCHC 34.9 g/dL (31.0-37.0); MCV 91.6 fL (80.0-100.0); Monocytes # (A) 0.3 k/uL (0-1.0); Monocytes % (A) 7 %; Neutrophils % (A) 44 %; Platelet Count 227 k/uL (150-450); RBC 4.55 m/uL (3.80-5.40); RDW 13.3 % (11.5-15.5); WBC 4.4 k/uL (3.8-10.6)
[2022-09-23 07:02] LABS: Albumin 4.3 g/dL (3.5-5.0); Calcium 9.2 mg/dL (8.4-10.2); Magnesium 2.2 mg/dL (1.6-2.3); Potassium 4.1 mmol/L (3.5-5.1); Total Bilirubin 0.8 mg/dL (0.2-1.3); Total Protein 7.1 g/dL (6.3-8.2)
--- NOTE | 2022-09-23 07:06 | XR ---
EXAMINATION TYPE: XR chest 2V DATE OF EXAM: 09/23/2022 COMPARISON: Chest x-ray June 06, 2021 HISTORY: Chest pain. TECHNIQUE: Frontal and lateral views of the chest are obtained. FINDINGS: There is no suspicious new focal air space opacity, pleural effusion, or pneumothorax seen . The cardiac silhouette size remains within normal limits. There is underlying S-shaped scoliosis r edemonstrated. IMPRESSION: No acute cardiopulmonary process. No significant change from prior.
[2022-09-23 07:09] LABS: INR 1.1 (<1.2); Partial Thromboplastin Time 23.1 sec (22.0-30.0); Prothrombin Time 11.1 sec (9.0-12.0)
--- NOTE | 2022-09-23 08:30 | CT ---
EXAMINATION TYPE: CT chest angio for PE CT DLP: 316.6 mGycm, Automated exposure control for dose reduction was used. DATE OF EXAM: 09/23/2022 8:11 AM COMPARISON: Chest radiograph 09/23/2022 CLINICAL INDICATION:Female, 77 years old with history of elevated d-dimer, leg swelling, palpitations ; TACHYCARDIA, ELEVATED D DIMER TECHNIQUE/CONTRAST: CTA scan of the thorax is performed with IV Contrast, patient injected with 100, WASTED 20 mL of Isov ue 370, pulmonary embolism protocol. MIP images are created and reviewed. FINDINGS: Pulmonary Artery: There are filling defects demonstrated within the right lower lobe subsegmental pul monary arteries. The pulmonary artery is of normal size. Reflux of contrast into the IVC and hepatic veins. Lungs/Pleura: No evidence of focal consolidation, pleural effusion or pneumothorax. Airway: Large airways are patent. Heart: Mildly enlarged. No pericardial effusion. Vasculature: No evidence of aortic aneurysm. Mediastinum: No gross evidence of adenopathy. Musculoskeletal: No acute osseous abnormalities. Diffuse bone demineralization. Sclerotic focus withi n the T3 vertebral body likely representing a benign bone island. Mild multilevel degenerative disc d isease. Soft Tissues: Unremarkable. Lower neck: Hypodense right thyroid lobe 1.5 cm nodule. Upper Abdomen: Left kidney 1 cm cyst. Mild prominence of the partially visualized left renal collecti ng system. 1.5 cm hypodense lesion within the pancreatic body suggested (series 401, image 130). IMPRESSION: 1. Right lower lobe subsegmental pulmonary emboli demonstrated. No evidence for right heart strain. 2. 1.5 cm hypodense lesion within the pancreatic body just at. Further evaluation with CT abdomen pel vis pancreatic mass protocol is recommended. 3. Mild prominence of the partially visualized left renal collecting system. Cannot exclude hydroneph rosis. This can be further evaluated with renal ultrasound versus above recommendation for CT abdomen pelvis. 4.Right thyroid lobe 1.5 cm nodule. Consider further evaluation with thyroid ultrasound. Findings called to and discussed with Dr. Ban Patel on 09/23/2022 at 8:27 AM.
[2022-09-23] MEDS ORDERED: HEPARIN SODIUM 1,000 UN/ML (10ML VL) IV PRN (08:53)
[2022-09-23] MEDS ORDERED: HEPARIN SODIUM 1,000 UN/ML (10ML VL) IV ONE (08:53)
[2022-09-23] MEDS ORDERED: NALOXONE 0.4 MG/ML 1 ML VIAL IV PRN (08:55)
--- NOTE | 2022-09-23 08:55 | ED ---
Chest Pain HPI - General Chief Complaint: Chest Pain Stated Complaint: Chest Pain Time Seen by Provider: 09/23/22 07:05 Source: patient Mode of arrival: wheelchair Limitations: no limitations - History of Present Illness Initial Comments: 77 year old female with past medical history of SVT, DVT, PE who presents to the emergency department reporting chest palpitations. Reports that she was woken up in the middle the night to her heart racing. She used to pulse ox and found that her heart rate was anywhere from 100 to 130. She does have a history of SVT with an ablation approximately 15 years ago. Also has history of DVT and PE however is not on any anticoagulation. Does report to some left leg swelling and pain with an area of superficial hardening. States that it has been present for months and has mentioned it previously to other doctors. Has never had a workup. She denies shortness of breath, fevers, chills or cough. No ripping or tearing sensation to her back. No other alleviating, Perceptin or modifying factors - Related Data Home Medications Medication Instructions Recorded Confirmed Atorvastatin [Lipitor] 10 mg PO HS 10/25/15 09/29/22 Venlafaxine HCl ER [Effexor XR] 37.5 mg PO HS 06/06/21 09/29/22 Alendronate Sodium [Fosamax] 70 mg PO WE 07/20/22 09/29/22 Metoprolol Tartrate [Lopressor] 25 mg PO DAILY 07/20/22 09/29/22 Furosemide [Lasix] 20 mg PO DAILY 09/29/22 09/29/22 Previous Rx's Medication Instructions Recorded Apixaban [Eliquis Starter Pack See Taper PO DIRECTED 30 Days 09/25/22 (for VTE)] #1 each Allergies Allergy/AdvReac Type Severity Reaction Status Date / Time sulfamethoxazole Allergy Itching Verified 09/29/22 15:54 [From Bactrim] trimethoprim [From Bactrim] Allergy Itching Verified 09/29/22 15:54 Review of Systems ROS Statement: Those systems with pertinent positive or pertinent negative responses have been documented in the HPI. ROS Other: All systems not noted in ROS Statement are negative. EKG Findings - EKG Comments: EKG Findings:: EKG demonstrates sinus rhythm. NM interval 140. QRS 135. QTC 460. Right bundle-branch block. Mild ST depression 2, 3, aVF as well as V3 through V6 Past Medical History Past Medical History: Cancer, Deep Vein Thrombosis (DVT), Eye Disorder, GERD/Ref lux, Hyperlipidemia, Memory Impairment, Osteoarthritis (OA), Pulmonary Embolus (PE), Supraventricular Tachycardia (SVT) Additional Past Medical History / Comment(s): possible MACULAR DEGENERATION, skin cancer, hx. DVT & PE 2010 History of Any Multi-Drug Resistant Organisms: None Reported Past Surgical History: Appendectomy, Breast Surgery, Cardiac Ablation, Joint Replacement Additional Past Surgical History / Comment(s): constantino hips & constantino. knee replacements,. rt breast biopsies Past Anesthesia/Blood Transfusion Reactions: No Reported Reaction Past Psychological History: Anxiety Smoking Status: Never smoker Past Alcohol Use History: Rare Past Drug Use History: None Reported - Past Family History Mother Family Medical History: Cancer Father Family Medical History: Cancer, Myocardial Infarction ([place]) General Exam Limitations: no limitations General appearance: alert, in no apparent distress Head exam: Present: atraumatic, normocephalic, normal inspection Eye exam: Present: normal appearance, PERRL, EOMI. Absent: scleral icterus, conjunctival injection, periorbital swelling ENT exam: Present: normal exam, mucous membranes moist Neck exam: Present: normal inspection. Absent: tenderness, meningismus, lymphadenopathy Respiratory exam: Present: normal lung sounds bilaterally. Absent: respiratory distress, wheezes, rales, rhonchi, stridor Cardiovascular Exam: Present: regular rate, normal rhythm, normal heart sounds. Absent: systolic murmur, diastolic murmur, rubs, gallop, clicks GI/Abdominal exam: Present: soft, normal bowel sounds. Absent: distended, tenderness, guarding, rebound, rigid Extremities exam: Present: full ROM, tenderness (left distal calf there is an area of induration and tenderness measuring 4 x 3 cm), normal capillary refill. Absent: pedal edema, joint swelling, calf tenderness Back exam: Present: normal inspection Neurological exam: Present: alert, oriented X3, CN II-XII intact Psychiatric exam: Present: normal affect, normal mood Skin exam: Present: warm, dry, intact, normal color. Absent: rash Course Vital Signs 09/23/22 09/23/22 09/23/22 05:56 07:02 09:47 Temperature 97.8 F Pulse Rate 88 75 68 Respiratory 16 18 18 Rate Blood Pressure 126/73 123/80 137/72 O2 Sat by Pulse 98 99 Oximetry 09/23/22 09/23/22 10:00 14:39 Temperature 98.7 F 98.5 F Pulse Rate 67 72 Respiratory 18 18 Rate Blood Pressure 137/72 114/69 O2 Sat by Pulse 98 96 Oximetry Procedures - Spruce Protocol (Time Out) Nurse: Mukund Nuñez Chest Pain MDM - MDM Was pt. sent in by a medical professional or institution (, [facility], HEDGE FUND TRADER, urgent care, hospital, or senior care...) When possible be specific @ -No Did you speak to anyone other than the patient for history (EMS, parent, family, police, friend...)? What history was obtained from this source @ -No Did you review nursing and triage notes (agree or disagree)? Why? @ -I reviewed and agree with nursing and triage notes Were old charts reviewed (outside hosp., previous admission, EMS record, old EKG, old radiological studies, urgent care reports/EKG's, senior care records)? Report findings @ -No old charts were reviewed Differential Diagnosis (chest pain, altered mental status, abdominal pain women, abdominal pain men, vaginal bleeding, weakness, fever, dyspnea, syncope, headache, dizziness, GI bleed, back pain, seizure, CVA, palpatations, mental health, musculoskeletal)? @ -afib, svt, dvt, pe, superficial thrombophebitis EKG interpreted by me (3pts min.). @ -As above X-rays interpreted by me (1pt min.). @ -yes CT interpreted by me (1pt min.). @ -yes U/S interpreted by me (1pt. min.). @ -yes What testing was considered but not performed or refused? (CT, X-rays, U/S, labs)? Why? @ -None What meds were considered but not given or refused? Why? @ -None Did you discuss the management of the patient with other professionals (professionals i.e. CHERRI Meneses, HEDGE FUND TRADER, lab, RT, psych nurse, social security assessor, dockworker, teacher, driver's license reviewing officer, case picker)? Give summary @ -Admitting physician Dr. Rogers Was smoking cessation discussed for >3mins.? @ -No Was critical care preformed (if so, how long)? @ -yes, 35 minutes for management of heparin gtt Were there social determinants of health that impacted care today? How? (Homelessness, low income, unemployed, alcoholism, drug addiction, transportation, low edu. Level, literacy, decrease access to med. care, alf, re hab)? @ -No Was there de-escalation of care discussed even if they declined (Discuss DNR or withdrawal of care, Hospice)? DNR status @ -No What co-morbidities impacted this encounter? (DM, HTN, Smoking, COPD, CAD, Cancer, CVA, ARF, Chemo, Hep., AIDS, mental health diagnosis, sleep apnea, morbid obesity)? @ -None Was patient admitted / discharged? Hospital course, mention meds given and route, prescriptions, significant lab abnormalities, going to OR and other pertinent info. @ -Upon arrival patient is placed in room 20. Thorough history and physical exam was performed. 12 lead EKG is obtained. Laboratory studies are conducted and reviewed. Patient's d-dimer is 1.98 therefore she is sent for a CT of her chest which demonstrates an acute PE. Ultrasound was performed of the lower x- rays which does demonstrate an acute DVT in the left lower extremity. She is placed on a heparin drip and will be admitted to [facility]. Spoke with Dr. Rogers who agreed to admit the patient. Undiagnosed new problem with uncertain prognosis? @ -Yes Drug Therapy requiring intensive monitoring for toxicity (Heparin, Nitro, Insulin, Cardizem)? @ -Yes, heparin Were any procedures done? @ -no Diagnosis/symptom? @ -acute palpitatins, acute pe/dvt Acute, or Chronic, or Acute on Chronic? @ -acute Uncomplicated (without systemic symptoms) or Complicated (systemic symptoms)? @ -complicated Side effects of treatment? @ -Bleeding Exacerbation, Progression, or Severe Exacerbation? @ -No Poses a threat to life or bodily function? How? (Chest pain, USA, NE, pneumonia, PE, COPD, DKA, ARF, appy, cholecystitis, CVA, Diverticulitis, Homicidal, Suicidal, threat to staff... and all critical care pts) @ -Yes Disposition Clinical Impression: Palpitations, Pulmonary embolism, DVT (deep venous thrombosis) Disposition: ADMITTED IP TO THIS HOSP Condition: Stable Is patient prescribed a controlled substance at d/c from ED?: No Time of Disposition: 08:55 Decision to Admit Reason: Admit from EC Decision Date: 09/23/22 Decision Time: 08:55
--- NOTE | 2022-09-23 09:07 | US ---
EXAMINATION TYPE: US venous doppler duplex LE LT DATE OF EXAM: 09/23/2022 8:59 AM COMPARISON: US CLINICAL HISTORY: leg swelling. Pt states left leg pain and discoloration SIDE PERFORMED: Left TECHNIQUE: The lower extremity deep venous system is examined utilizing real time linear array sonog artemio with graded compression, doppler sonography and color-flow sonography. VESSELS IMAGED: Common Femoral Vein Deep Femoral Vein Greater Saphenous Vein * Femoral Vein Popliteal Vein Small Saphenous Vein * Proximal Calf Veins (* superficial vessels) Left Leg: Positive for DVT, distal popliteal and proximal calf veins, also possible SVT left posteri or calf in area of pt's pain IMPRESSION: Deep vein thrombosis involving the distal popliteal and proximal calf veins with superficial venous t hrombosis of the left posterior calf in the patient's region of pain. Fundus called to and discussed with Dr. Ban Patel at 9:04 AM on 09/23/2022.
[2022-09-23] MEDS: HEPARIN SOD,PORK IN 0.45% NACL 25,000 UNIT in 0.45% NACL 1 250ML.BAG IV SCH (09:51)
[2022-09-23] MEDS ORDERED: IOPAMIDOL CONTRAST (ORAL USE) VIAL PO PRN (12:45)
[2022-09-23] MEDS ORDERED: polyethylene glycoL 3350 17 GM POWD.PACK PO PRN (13:19)
[2022-09-23] MEDS ORDERED: ACETAMINOPHEN TAB 325 MG TAB PO PRN (13:19)
--- NOTE | 2022-09-23 13:32 | CT ---
EXAMINATION TYPE: CT abdomen pelvis wo con CT DLP: 497.1 mGycm, Automated exposure control for dose reduction was used. DATE OF EXAM: 09/23/2022 1:21 PM COMPARISON: CTA chest 09/23/2022 CT CLINICAL INDICATION:Female, 77 years old with history of abdominal pain; Abdominal pain TECHNIQUE: Standard CT of the abdomen and pelvis without IV or oral contrast. Lack of IV or oral co ntrast limits evaluation of solid and hollow organ viscera. Coronal and sagittal reformats were perfo rmed. FINDINGS: Evaluation is limited due to lack of intravenous contrast. LOWER CHEST: Bibasilar subsegmental atelectasis. ABDOMEN LIVER: Left hepatic lobe cyst measuring up to 1.9 cm. GALLBLADDER AND BILE DUCTS: Unremarkable. PANCREAS: Questioned pancreatic body mass is not visualized due to lack of intravenous contrast. SPLEEN: Unremarkable. ADRENAL GLANDS: Unremarkable. KIDNEYS AND URETERS: No evidence of hydronephrosis or renal calculus. Mild left pelvocaliectasis. Con trast is demonstrated within both collecting systems. Left renal cyst measuring 1 cm. PELVIS BLADDER: Partially contrast filled and poorly visualized due to streak artifact from hip prosthesis. REPRODUCTIVE: Not visualized due to hip prosthesis streak artifact. ABDOMEN & PELVIS STOMACH AND BOWEL: Stomach and duodenum are unremarkable. The appendix appears to be surgical absent. Distal colonic diverticulosis without evidence for acute diverticulitis. No focal wall thickening or surrounding inflammatory changes. Poor visualization of the rectum due to streak artifact from hip p rosthesis. No evidence of bowel obstruction. PERITONEUM: No evidence of pneumoperitoneum or free fluid. VASCULATURE: No evidence of aortic aneurysm. MUSCULOSKELETAL: No acute osseous abnormalities. Postsurgical changes from bilateral total hip arthro plasties. This creates streak artifact limiting evaluation of the pelvis. Diffuse bone demineralizati on. Grade 1 anterolisthesis L4 on L5 without evidence of pars defects. Degenerative changes of the vi sualized spine most pronounced at L4-L5. Multilevel facet arthropathy. No aggressive osseous lesion. LYMPH NODES: No gross evidence for lymphadenopathy. SOFT TISSUE/ABDOMINAL WALL: Tiny fat filled umbilical hernia. IMPRESSION: Limited examination due to lack of intravenous contrast. 1. No acute abdominal/pelvic process. 2. Colonic diverticulosis without evidence for acute diverticulitis. 3. Mild left pelvocaliectasis without evidence for hydronephrosis. 4. Nonvisualization of suggested pancreas body lesion from CTA chest likely due to lack of intravenou s contrast. Follow-up CT abdomen pancreatic mass protocol is recommended.
--- NOTE | 2022-09-23 13:37 | US ---
EXAMINATION TYPE: US thyroid st tissue head/neck DATE OF EXAM: 09/23/2022 COMPARISON: CTA chest 09/23/2022 CLINICAL HISTORY: thyroid nodule. Parathyroid nodule removed sept 2021. GLAND SIZE: Right Lobe: 4.5 x 2.0 x 2.0 cm Overall Parenchyma: homogenous Left Lobe: 3.8 x 1.5 x 1.2 cm Overall Parenchyma: homogeneous Isthmus Thickness: 0.2 cm NODULES RIGHT: # of nodules measured on right: 2 1. 2.1 X 1.8 x 1.1 cm, mid mid, solid or almost completely solid, hypoechoic nodule, which is wide r than tall, with ill-defined margins, without echogenic foci. TR 4. Prior size: No prior 2. 0.9 X 0.9 x 0.7 cm, lower mid, solid or almost completely solid, hypoechoic nodule, which is wid er than tall, with ill-defined margins, without echogenic foci. TR 4. Prior size: No prior LEFT: # of nodules measured on left: 2 1. 0.8 X 0.7 x 0.6 cm, mid mid, solid or almost completely solid, hypoechoic nodule, which is wider than tall, with ill-defined margins, without echogenic foci. TR 4. Prior size: No prior 2. 0.9 X 0.6 x 0.4 cm, mid medial, mixed cystic and solid, isoechoic nodule, which is wider than t all, with ill-defined margins, without echogenic foci. TR 4. Prior size: No prior ISTHMUS: # of nodules measured in the isthmus: 0 Bilateral neck scanned, no evidence of lymphadenopathy. IMPRESSION: Bilateral thyroid nodules with most suspicious in the right thyroid lobe measuring up to 2.1 cm. This is consistent with a TR 4 nodule. Fine-needle aspiration is recommended. The remaining nodules are s ubcentimeter size.
--- NOTE | 2022-09-23 13:45 | P.HPIM ---
History of Present Illness H&P Date: 09/23/22 Chief Complaint: Palpitations This is a pleasant 77-year-old female who presents to [facility] after sudden onset tachycardia. Patient states that she was laying in bed early this morning and felt her heart race. Patient has a pulse ox at home and read as high as 135 bpm. Her oxygen saturation was 98 percent on room air. Patient also admits to shortness of breath. Patient called her neighbors take her to the emergency department. Patient's is currently in rehab after getting back surgery. Patient has no other family in the area. Past medical history includes a history of SVT currently on metoprolol and anxiety currently on Effexor. Patient states that she also had some left lower extremity pain over the past week. Lower extremity Doppler revealed DVT. Due to an elevated d-dimer CTA of the chest was done and also revealed pulmonary emboli without evidence of heart strain. Patient denies history of malignancy. However, pat wolf states that her mother had breast cancer and her grandmother had leukemia. Patient states that one of her prior doctors put her on tamoxifen for a while as a preventative measure. Patient denies having history of malignancy except for some skin cancers that were easily taking care of. Patient states she was taken off of tamoxifen around 2004 when she had her first lower extremity DVT and PE. These were attributed to the tamoxifen. Patient has not had another one since today. Incidental findings on imaging were noted. Patient was noted to have a 1.5 cm nodule on her thyroid and a 1.5 cm lesion on her pancreas. Patient is currently resting in bed comfortably. Patient currently denies chest pain, shortness breath, nausea, vomiting, fever, or chills. Patient admits to constipation. 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 DVT & PE 2009 History of Any Multi-Drug Resistant Organisms: None Reported Past Surgical History: Appendectomy, Breast Surgery, Cardiac Ablation, Joint Replacement Additional Past Surgical History / Comment(s): constantino hips & constantino. knee replacements,. rt breast biopsies Past Anesthesia/Blood Transfusion Reactions: No Reported Reaction Past Psychological History: Anxiety Smoking Status: Never smoker Past Alcohol Use History: Rare Past Drug Use History: None Reported - Past Family History Mother Family Medical History: Cancer Father Family Medical History: Cancer, Myocardial Infarction (DE) Medications and Allergies Home Medications Medication Instructions Recorded Confirmed Type Atorvastatin [Lipitor] 10 mg PO HS 10/25/15 09/23/22 History Venlafaxine HCl ER [Effexor XR] 37.5 mg PO HS 06/06/21 09/23/22 History Alendronate Sodium [Fosamax] 70 mg PO WE 07/20/22 09/23/22 History Celecoxib [CeleBREX] 200 mg PO DAILY 07/20/22 09/23/22 History Metoprolol Tartrate [Lopressor] 25 mg PO DAILY 07/20/22 09/23/22 History Allergies Allergy/AdvReac Type Severity Reaction Status Date / Time sulfamethoxazole Allergy Itching Verified 09/23/22 09:25 [From Bactrim] trimethoprim [From Bactrim] Allergy Itching Verified 09/23/22 09:25 Physical Exam Osteopathic Statement: *. No significant issues noted on an osteopathic structural exam other than those noted in the History and Physical/Consult. Vitals: Vital Signs Temp Pulse Resp BP Pulse Ox 09/23/22 10:00 98.7 F 67 18 137/72 98 09/23/22 09:47 68 18 137/72 09/23/22 07:02 75 18 123/80 99 09/23/22 05:56 97.8 F 88 16 126/73 98 Intake and Output 09/22/22 09/23/22 09/23/22 22:59 06:59 14:59 Other: Weight 68.946 kg General: [non toxic], [no distress], [appears at stated age] Derm: [warm], [dry] Head: [atraumatic], [normocephalic], [symmetric] Eyes: [EOMI], [no lid lag], [anicteric sclera] Mouth: [no lip lesion], [mucus membranes moist] Cardiovascular: [S1S2 reg], [no murmur], [positive posterior tibial pulse bilateral], Lungs: [CTA bilateral], [no rhonchi, no rales] , [no accessory muscle use] Abdominal: [soft], [ nontender to palpation], [no guarding], [no appreciable organomegaly] Ext: [no gross muscle atrophy], [no edema], [no contractures] Neuro: [ CN II-XI grossly intact], [no focal neuro deficits] Psych: [Alert], [oriented], [appropriate affect] Results CBC & Chem 7: 09/23/22 06:04 09/23/22 06:04 Labs: Abnormal Lab Results - Last 24 Hours (Table) 09/23/22 Range/Units 06:04 D-Dimer 1.98 H (<0.60) mg/L FEU Thrombosis Risk Factor Assmnt - DVT/VTE Prophylaxis DVT/VTE Prophylaxis: Pharmacologic Prophylaxis ordered - Choose All That Apply Each Risk Factor Represents 3 Points: Age 75 years or older, History of DVT/PE Thrombosis Risk Factor Assessment Total Risk Factor Score: 6 Thrombosis Risk Factor Assessment Level: High Risk Assessment and Plan Assessment: Assessment/plan 1. LLE DVT and RLL PE Hypercoagulable state concern for malignancy Consult hematology oncology Tumor markers ordered Heparin drip with pharmacy to dose transitioned to oral eliquis tomorrow 2. Pancreatic lesion 1.5 cm check CEA and CA-19-9 CT of the abdomen/pelvis ordered 3. 1.5 cm thyroid nodule Check thyroid ultrasound Check TSH with reflex T4 4. Tachycardia with history of SVT Resume metoprolol 25 mg daily Telemetry Echocardiogram ordered 5. History of anxiety Resume Effexor 6. Constipation MiraLAX when necessary check B12 levels 7. History of hyperlipidemia Resume Lipitor 10 mg by mouth daily at bedtime 8. History of osteoporosis Resume Fosamax 70 mg weekly 9. GI DVT prophylaxis 10. Patient is a DO NOT RESUSCITATE Disposition: Greater than 2 midnight stay with anticipation to discharge home with home care Greater than 35 minutes spent coordinating care, counseling patient, and documenting. Time with Patient: Greater than 30
[2022-09-23] MEDS: PANTOPRAZOLE 40 MG TABLET PO SCH (14:32)
[2022-09-23] MEDS: METOPROLOL TARTRATE 25 MG TAB PO SCH (14:32)
--- NOTE | 2022-09-23 15:30 | P.CNPUL ---
History of Present Illness Consult date: 09/23/22 Requesting physician: Franki Rogers Reason for consult: pulmonary embolism, abnormal CXR/CT Chief complaint: Palpitations History of present illness: This is a very pleasant 77-year-old female patient who has a history of anxiety/depression, hypertension, hyperlipidemia, SVT with previous cardiac ablation, previous PE/DVT who woke up this morning on several occasions with heart racing and palpitations. She presented here to the emergency room for the same. EKG revealed sinus rhythm with a right bundle branch block. Chest x-ray revealed no acute pulmonary process. CT angiogram revealed a right lower lobe subsegmental pulmonary emboli. No evidence of right heart strain. She was no alverto to have a 1.5 cm hypodense lesion within the pancreatic body. Mild prominence of the left renal collecting system done could not rule out hydronephrosis, right thyroid lobe 1.5 cm nodule. Dopplers of lower extremity revealed a DVT on the left. Ultrasound of thyroid revealed bilateral nodules with no suspicious in the right thyroid lobe measuring a 2.1 cm nodule. FNA was recommended. Computed tomography scan of the abdomen and pelvis revealed no acute processes. Colonic diverticulosis without diverticulitis. Mild left caliectasis without evidence of hydronephrosis. . Nonvisualization of suggested pancreas lesion from CTA likely due to lack of IV contrast. White count 4.4. Hemoglobin 14.6. D-dimer 1.98. Sodium 137. Potassium 4.1. Bicarb 30. BUN 17. Creatinine 0.79. AST 29. ALT 21. Troponin negative 1. She's been initiated on a heparin drip. She is seen in consultations in the emergency department. She is sitting up on the stretcher. Awake and alert in no acute distress. Currently in sinus rhythm. Currently maintaining O2 saturations in the 90s on room air. No pulmonary complaints whatsoever. If not for the previous heart palpitations she feels well otherwise. Review of Systems REVIEW OF SYSTEMS: CONSTITUTIONAL: Denies any recent significant weight loss or weight gain. EYES: Denies change in vision. EARS, NOSE, MOUTH, THROAT: Denies headaches, denies sore throat. CARDIOVASCULAR: Positive for palpitations no syncopal episodes. RESPIRATORY: Denies shortness of breath, cough, congestion or hemoptysis. GASTROINTESTINAL: Denies change in appetite, denies abdominal pain GENITOURINARY: Denies hematuria, denies infections. MUSKULOSKELETAL: Denies pain, denies swelling. INTEGUMENTARY: Denies rash, denies eczema. NEUROLOGICAL: Denies recent memory loss, no recent seizure activity. PSYCHIATRIC: Denies anxiety, denies depression. HEMATOLOGIC/LYMPHATIC: Denies anemia, denies enlarged lymph nodes. 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 DVT & PE 2010 History of Any Multi-Drug Resistant Organisms: None Reported Past Surgical History: Appendectomy, Breast Surgery, Cardiac Ablation, Joint Replacement Additional Past Surgical History / Comment(s): constantino hips & constantino. knee replacements,. rt breast biopsies Past Anesthesia/Blood Transfusion Reactions: No Reported Reaction Past Psychological History: Anxiety Smoking Status: Never smoker Past Alcohol Use History: Rare Past Drug Use History: None Reported - Past Family History Mother Family Medical History: Cancer Father Family Medical History: Cancer, Myocardial Infarction (CT) Medications and Allergies Home Medications Medication Instructions Recorded Confirmed Type Atorvastatin [Lipitor] 10 mg PO HS 10/25/15 09/23/22 History Venlafaxine HCl ER [Effexor XR] 37.5 mg PO HS 06/06/21 09/23/22 History Alendronate Sodium [Fosamax] 70 mg PO WE 07/20/22 09/23/22 History Celecoxib [CeleBREX] 200 mg PO DAILY 07/20/22 09/23/22 History Metoprolol Tartrate [Lopressor] 25 mg PO DAILY 07/20/22 09/23/22 History Allergies Allergy/AdvReac Type Severity Reaction Status Date / Time sulfamethoxazole Allergy Itching Verified 09/23/22 09:25 [From Bactrim] trimethoprim [From Bactrim] Allergy Itching Verified 09/23/22 09:25 Physical Exam Vitals: Vital Signs Temp Pulse Resp BP Pulse Ox 09/23/22 14:39 98.5 F 72 18 114/69 96 09/23/22 10:00 98.7 F 67 18 137/72 98 09/23/22 09:47 68 18 137/72 09/23/22 07:02 75 18 123/80 99 09/23/22 05:56 97.8 F 88 16 126/73 98 Intake and Output 09/23/22 09/23/22 09/23/22 06:59 14:59 22:59 Intake Total 65.773 Balance 65.773 Intake: Intake, IV Titration 65.773 Amount Heparin Sod,Pork in 0.45% 65.773 NaCl 25,000 unit In 0.45 % NaCl 1 250ml.bag @ 18 UNITS/KG/HR 12.41 mls/hr IV .[id number] [facility] Rx#: [id number] Other: Weight 68.946 kg GENERAL EXAM: Alert, active, 77-year-old female, on room air, comfortable in no apparent distress. HEAD: Normocephalic. EYES: Normal reaction of pupils, equal size. NOSE: Clear with pink turbinates. THROAT: No erythema or exudates. NECK: No masses, no JVD. CHEST: No chest wall deformity. LUNGS: Equal air entry with no crackles, wheeze, rhonchi or dullness. CVS: S1 and S2 normal with no audible murmur, regular rhythm. ABDOMEN: No hepatosplenomegaly, normal bowel sounds, no guarding or rigidity. SPINE: No scoliosis or deformity SKIN: No rashes CENTRAL NERVOUS SYSTEM: No focal deficits, tone is normal in all 4 extremities. EXTREMITIES: There is no peripheral edema. No clubbing, no cyanosis. Peripheral pulses are intact. Results - Laboratory Findings CBC and BMP: 09/23/22 06:04 09/23/22 06:04 PT/INR, D-dimer PT 11.1 sec (9.0-12.0) 09/23/22 06:04 INR 1.1 (<1.2) 09/23/22 06:04 D-Dimer 1.98 mg/L FEU (<0.60) H 09/23/22 06:04 Abnormal lab findings: Abnormal Labs 09/23/22 09/23/22 06:04 13:57 APTT >200.0 H* D-Dimer 1.98 H - Diagnostic Findings Chest x-ray: image reviewed CT scan - chest: image reviewed Assessment and Plan Assessment: Acute right lower lobe subsegmental pulmonary emboli with a left lower extremity DVT. Initiated on a heparin drip Heart palpitations in a patient with a previous history of SVT and cardiac ablation. 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 Prior history of PE/DVT Hyperlipidemia History of anxiety/depression Plan: The patient was seen and evaluated CAT scan, chest x-ray, labs and medications reviewed Continue heparin drip Would recommend lifelong anticoagulation Currently stable and on room air Continue cardiac monitoring Further investigation regarding possible pancreatic lesion Obtain a CA 19-9 Will need further workup regarding thyroid nodule We will continue to follow and make further recommendations based on her clinical status I have personally seen and examined the patient, performed the documentation and the assessment and plan as written. Number of minutes spent on the visit: 20.
[2022-09-23] MEDS: VENLAFAXINE HCL ER 37.5 MG CAP PO SCH (21:14)
[2022-09-23] MEDS: ATORVASTATIN 10 MG TAB PO SCH (21:14)
[2022-09-23 23:07] LABS: Cancer Antigen 19-9 26.3 U/mL (0.0-34.9); Carcinoembryonic Antigen 2.1 ng/mL (0.0-4.9)
[2022-09-23 23:46] LABS: Thyroid Peroxidase Antibodies 9.2 U/mL (0.0-33.0)
[2022-09-24 02:31] LABS: Cancer Antigen 125 13.2 U/mL (0.0-30.1); Cancer Antigen 153 17.4 U/mL (0.0-32.3)
[2022-09-24] MEDS: PANTOPRAZOLE 40 MG TABLET PO SCH (05:45)
[2022-09-24] MEDS: HEPARIN SOD,PORK IN 0.45% NACL 25,000 UNIT in 0.45% NACL 1 250ML.BAG IV SCH ×2 (05:53→15:59)
[2022-09-24 07:48] LABS: Basophils % (A) 0 %; Eosinophils % (A) 1 %; HCT 41.6 % (34.0-46.0); HGB 13.9 gm/dL (11.4-16.0); Lymphocytes # (A) 1.9 k/uL (1.0-4.8); Lymphocytes % (A) 33 %; MCH 31.2 pg (25.0-35.0); MCHC 33.5 g/dL (31.0-37.0); MCV 93.2 fL (80.0-100.0); Mean Platelet Volume 8.1; Monocytes # (A) 0.3 k/uL (0-1.0); Monocytes % (A) 6 %; Neutrophils # (A) 3.2 k/uL (1.3-7.7); Neutrophils % (A) 58 %; Platelet Count 214 k/uL (150-450); RBC 4.46 m/uL (3.80-5.40); RDW 13.3 % (11.5-15.5); WBC 5.5 k/uL (3.8-10.6)
[2022-09-24] MEDS: METOPROLOL TARTRATE 25 MG TAB PO SCH (08:00)
[2022-09-24] MEDS ORDERED: NON FORMULARY DRUG (Alendronate Sodium [Fosamax] 70 MG Tablet) PO SCH (09:00)
[2022-09-24 10:19] LABS: ALT 18 U/L (4-34); AST 28 U/L (14-36); African American GFR (CKD) >90 (>60 ml/min/1.73 sqM); Albumin 3.8 g/dL (3.5-5.0); Albumin/Globulin Ratio 1.5; Alkaline Phosphatase 75 U/L (38-126); Anion Gap 6 mmol/L; Blood Urea Nitrogen 12 mg/dL (7-17); Calcium 8.9 mg/dL (8.4-10.2); Carbon Dioxide 29 mmol/L (22-30); Chloride 104 mmol/L (98-107); Globulin 2.6 g/dL; Glucose 104 mg/dL (74-99); Magnesium 2.2 mg/dL (1.6-2.3); Non-African American GFR(CKD) 81 (>60 ml/min/1.73 sqM); Phosphorus 2.8 mg/dL (2.5-4.5); Potassium 3.9 mmol/L (3.5-5.1); Sodium 139 mmol/L (137-145); Total Bilirubin 0.5 mg/dL (0.2-1.3); Total Protein 6.4 g/dL (6.3-8.2)
--- NOTE | 2022-09-24 11:12 | CA ---
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;AVB; Technical Quality: Good Contrast 1: Total Dose (mL): Contrast 2: Total Dose (mL): MEASUREMENTS (Male / Female) Normal Values 2D ECHO LV Diastolic Diameter PLAX 4.4 cm 4.2 - 5.9 / 3.9 - 5.3 cm LV Systolic Diameter PLAX 3.5 cm LV Fractional Shortening PLAX 19.1 % IVS Diastolic Thickness 1.0 cm 0.6 - 1.0 / 0.6 - 0.9 cm IVS Systolic Thickness 1.2 cm LVPW Diastolic Thickness 1.1 cm 0.6 - 1.0 / 0.6 - 0.9 cm LVPW Systolic Thickness 1.2 cm LV Relative Wall Thickness 0.5 RV Internal Dim ED PLAX 3.3 cm LVOT Diameter 1.9 cm LA Systolic Diameter LX 3.6 cm 3.0 - 4.0 / 2.7 - 3.8 cm LV Diastolic Volume MOD BP 79.4 cm??? 67 - 155 / 56 - 104 cm??? LV Systolic Volume MOD BP 25.5 cm??? 22 - 58 / 19 - 49 cm??? LV Ejection Fraction MOD BP 67.9 % >= 55 % LV Stroke Volume MOD BP 53.9 cm??? LV Diastolic Volume MOD 4C 58.3 cm??? LV Systolic Volume MOD 4C 16.6 cm??? LV Ejection Fraction MOD 4C 71.6 % LV Stroke Volume MOD 4C 41.7 cm??? LV Diastolic Length 4C 6.3 cm LV Systolic Length 4C 4.6 cm LV Diastolic Volume MOD 2C 98.7 cm??? LV Systolic Volume MOD 2C 33.5 cm??? LV Ejection Fraction MOD 2C 66.1 % LV Stroke Volume MOD 2C 65.2 cm??? LV Diastolic Length 2C 6.9 cm LV Systolic Length 2C 5.6 cm M-MODE Aortic Root Diameter MM 3.0 cm LA Systolic Diameter MM 3.6 cm LA Ao Ratio MM 1.2 MV E Point Septal Separation 0.8 cm AV Cusp Separation MM 1.7 cm DOPPLER AV Peak Velocity 110.3 cm/s AV Peak Gradient 4.9 mmHg AI Peak Velocity 439.1 cm/s AI Peak Gradient 77.1 mmHg AI Deceleration [place] 219.4 cm/s??? AI Pressure Half Time 580.4 ms MV Deceleration [place] 202.9 cm/s??? MR Peak Velocity 413.6 cm/s MR Peak Gradient 68.4 mmHg MR Mean Velocity 397.5 cm/s MR Mean Gradient 70.9 mmHg MR Velocity Time Integral 180.2 cm Mitral E Point Velocity 52.8 cm/s Mitral A Point Velocity 59.9 cm/s Mitral E to A Ratio 0.9 MV Deceleration Time 260.3 ms MV E' Velocity 5.7 cm/s Mitral E to MV E' Ratio 9.3 TR Peak Velocity 293.2 cm/s TR Peak Gradient 34.4 mmHg Right Ventricular Systolic Press 44.4 mmHg PV Peak Velocity 73.2 cm/s PV Peak Gradient 2.1 mmHg FINDINGS Left Ventricle Left ventricular ejection fraction is estimated at 55-60 %. Borderline left ventricular hypertrophy. Grade 1 diastolic dysfunction. Normal basal systolic function. Left ventricular cavity size at the upper limits of normal. Right Ventricle Normal right ventricular size and function. RVSP-43 mm Hg Right Atrium Right atrial dilatation. Left Atrium Mild left atrial dilatation. Mitral Valve Mitral valve thickened. [id number] mitral regurgitation. Aortic Valve Trileaflet aortic valve. [id number] aortic regurgitation. Tricuspid Valve [id number] tricuspid regurgitation. Pulmonic Valve Mild pulmonic regurgitation. Pericardium Normal pericardium. No pericardial effusion. Aorta Normal size aortic root and proximal ascending aorta. CONCLUSIONS Normal LV size and systolic function without segmental wall motion abnormalities. There is mild concentric LVH. There is mild atrial enlargement. There is mild to moderate mitral and mild aortic insufficiency. There is mildly elevated PA pressures. No pericardial effusion Previewed by: Dr. Sean Agarwal MD (Electronically Signed) Final Date: 24 September 2022 11:11
--- NOTE | 2022-09-24 11:40 | P.PN ---
Subjective Progress Note Date: 09/24/22 This is a very pleasant 77-year-old female patient who has a history of anxiety/depression, hypertension, hyperlipidemia, SVT with previous cardiac ablation, previous PE/DVT who woke up this morning on several occasions with heart racing and palpitations. She presented here to the emergency room for the same. EKG revealed sinus rhythm with a right bundle branch block. Chest x-ray revealed no acute pulmonary process. CT angiogram revealed a right lower lobe subsegmental pulmonary emboli. No evidence of right heart strain. She was noted to have a 1.5 cm hypodense lesion within the pancreatic body. Mild prominence of the left renal collecting system done could not rule out hydronephrosis, right thyroid lobe 1.5 cm nodule. Dopplers of lower extremity revealed a DVT on the left. Ultrasound of thyroid revealed bilateral nodules with no suspicious in the right thyroid lobe measuring a 2.1 cm nodule. FNA was recommended. Computed tomography scan of the abdomen and pelvis revealed no acute processes. Colonic diverticulosis without diverticulitis. Mild left caliectasis without evidence of hydronephrosis. . Nonvisualization of suggested pancreas lesion from CTA likely due to lack of IV contrast. White count 4.4. Hemoglobin 14.6. D-dimer 1.98. Sodium 137. Potassium 4.1. Bicarb 30. BUN 17. Creatinine 0.79. AST 29. ALT 21. Troponin negative 1. She's been initiated on a heparin drip. She is seen in consultations in the emergency department. She is sitting up on the stretcher. Awake and alert in no acute distress. Currently in sinus rhythm. Currently maintaining O2 saturations in the 90s on room air. No pulmonary complaints whatsoever. If not for the previous heart palpitations she feels well otherwise. The patient is seen today for 09/24/2022 in follow-up on the regular medical floor. She is currently sitting up in bed. Awake and alert in no acute dist ress. She denies any shortness of breath, cough or congestion. She denies any further palpitations or chest discomfort. She is maintaining good O2 saturations in the mid 90s on room air. She's been afebrile. Hemodynamically stable. Echocardiogram reveals normal left ventricular size and systolic function. No significant valvular abnormalities. White count 5.5. Hemoglobin 12.9. Sodium 139. Potassium 3.9. Bicarb 29. BUN 12. Creatinine 0.73. Glucose 104. CEA 2.1. CA 199 13.2. Thyroglobulin 62.4. Computed tomography scan of the pancreas is pending. Objective - Vital Signs Vital signs: Vital Signs Temp 98.3 F 09/24/22 08:06 Pulse 63 09/24/22 10:36 Resp 16 09/24/22 08:06 BP 116/67 09/24/22 08:06 Pulse Ox 96 09/24/22 08:06 FiO2 Intake & Output 09/23/22 09/24/22 09/24/22 18:59 06:59 18:59 Intake Total 65.773 39.251 232.446 Balance 65.773 39.251 232.446 Weight 68.946 kg Intake: Intake, IV Titration 65.773 39.251 112.446 Amount Heparin Sod,Pork in 0.45% 65.773 39.251 112.446 NaCl 25,000 unit In 0.45 % NaCl 1 250ml.bag @ 18 UNITS/KG/HR 12.41 mls/hr IV .Q20H9M [facility] Rx#: [id number] Oral 120 Other: Voiding Method Toilet Toilet # Voids 2 - Exam GENERAL EXAM: Alert, active, 77 year old female, on room air, comfortable in no apparent distress. HEAD: Normocephalic. EYES: Normal reaction of pupils, equal size. NOSE: Clear with pink turbinates. THROAT: No erythema or exudates. NECK: No masses, no JVD. CHEST: No chest wall deformity. LUNGS: Equal air entry with no crackles, wheeze, rhonchi or dullness. CVS: S1 and S2 normal with no audible murmur, regular rhythm. ABDOMEN: No hepatosplenomegaly, normal bowel sounds, no guarding or rigidity. SPINE: No scoliosis or deformity SKIN: No rashes CENTRAL NERVOUS SYSTEM: No focal deficits, tone is normal in all 4 extremities. EXTREMITIES: There is no peripheral edema. No clubbing, no cyanosis. Per ipheral pulses are intact. - Labs CBC & Chem 7: 09/24/22 06:29 09/24/22 06:29 Labs: Abnormal Lab Results - Last 24 Hours (Table) 09/23/22 09/23/22 09/23/22 Range/Units 13:57 13:57 21:01 APTT >200.0 H* 77.8 H (22.0-30.0) sec Glucose (74-99) mg/dL Thyroglobulin 62.40 H (1.60-59.90) ng/mL 09/24/22 09/24/22 Range/Units 06:29 06:29 APTT 108.5 H* (22.0-30.0) sec Glucose 104 H (74-99) mg/dL Thyroglobulin (1.60-59.90) ng/mL Assessment and Plan Assessment: Acute right lower lobe subsegmental pulmonary emboli with a left lower extremity DVT. Initiated on a heparin drip Heart palpitations in a patient with a previous history of SVT and cardiac ablation. Currently in sinus rhythm. Echocardiogram reveals preserved left ventricular systolic function. No significant valvular abnormalities. 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 Number of minutes spent on the visit: 10.
--- NOTE | 2022-09-24 14:24 | CT ---
EXAMINATION TYPE: CT pancreas biphase DATE OF EXAM: 09/24/2022 COMPARISON: 09/23/2022 INDICATION: Pancreatic lesion DLP: 849 mGycm, Automated exposure control for dose reduction was used. CONTRAST: 100 mL of Isovue 370. Study performed without Oral Contrast TECHNIQUE: Axial images were obtained from above the diaphragm to the iliac crests in the axial plane at 5 mm thick sections. Reconstructed images are reviewed on the computer in the coronal plane. FINDINGS: Limited CT sections are obtained the lung bases. The lung bases are clear. CT ABDOMEN: Liver: Normal Spleen: Normal Pancreas: Normal. Pancreatic duct is evident but does not appear dilated. There is some hypodensity w ithin the splenic vein. Adrenal glands: The adrenal glands are normal. Gallbladder: Normal Kidneys: No masses are evident. No hydronephrosis is present. No cysts are present. Delayed images were obtained through the kidneys, which remain unremarkable. Aorta: Minimal Vascular calcification is within the aorta. Inferior vena cava: Normal. IMPRESSIONS: 1. No suspicious pancreatic mass identified
--- NOTE | 2022-09-24 16:00 | P.CONS ---
History of Present Illness - Reason for Consult Consult date: 09/24/22 Pancreatic lesion Requesting physician: Ade Anguiano - Chief Complaint Heart palpitations - History of Present Illness This a pleasant 77-year-old female who presented to the emergency department early yesterday morning with complaints of racing her and her palpitations. Patient states that she woke up at the middle of the night with heart palpitations, when she awoke, she continued to have heart palpitations and racing heart. She denied any chest pain or shortness of breath. She does have a history of SVT with cardiac ablation approximately 15 years ago and thought she may be having a recurrence. Past medical history includes DVT, pulmonary embolism, squamous cell carcinoma, hyperlipidemia, memory impairment, and GERD. Lab work showed an elevated d-dimer. Patient had a venous duplex of the lower extremities which was positive for left DVT. A CT angiogram of the chest was completed that reported a right lower lobe subsegmental pulmonary emboli with no evidence of right heart strain. Also reported a 1.5 cm hypodense lesion within the pancreatic body. Further evaluation with CT abdomen and pelvis pancreatic mass protocol recommended. Gastroenterology was consulted for possible pancreatic lesion. Primary medical team ordered a CT of the abdomen and pelvis without contrast was a limited exam due to lack of IV contrast. No acute abdominal/pelvic process. Colonic diverticulosis without evidence for acute diverticulitis. Mild left elbow collect a cyst without evidence for hydronephrosis. Nonvisualization is suggested pancreas body lesion from CTA chest likely due to lack of intravenous contrast. Patient currently denies any chest pain, shortness of breath, denies heart palpitations at this time. She denies abdominal pain, nausea or vomiting. No previous history of pancreatic or liver disease. no history of pancreatitis, alcoholism. States no recent surgeries and patient is active. Last DVT and pulmonary embolism greater than 10 years ago, unprovoked. Patient denies any history of clotting disorders. She is currently on a heparin drip. States her last colonoscopy was likely within the last 10 years which was normal. Today's labs WBC 5.5 hemoglobin 13.9 hematocrit 41 platelet count 214,000 INR 1.1 sodium 139 potassium 3.9 BUN 12 creatinine 0.7 total bilirubin 0.5 AST 28 ALT 18 alkaline phosphatase 75 CEA 17.4 CA-19-9 CA-19-9 13.2 Review of Systems REVIEW OF SYSTEMS: CARDIOPULMONARY: No chest pain or shortness of breath. Her palpitations. Gastrointestinal: No abdominal pain. No nausea or vomiting. No hematemesis, coffee-ground emesis. No rectal bleeding, or melena. GENITOURINARY: No dysuria or hematuria. MUSCULOSKELETAL: Reports normal range of motion. Left lower extremity swelling. SKIN: No rashes. No jaundice. ENDOCRINE: No chills, fevers. No excessive weight gain or loss. No polydipsia or polyuria. PSYCHIATRIC: Unremarkable. NEUROLOGY: No change in mental status. Denies dizziness, headache. ENT: Vision unremarkable. CONSTITUTIONAL: No recent weight loss. No fever, chills, night sweats. 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 DVT & PE 2010 History of Any Multi-Drug Resistant Organisms: None Reported Past Surgical History: Appendectomy, Breast Surgery, Cardiac Ablation, Joint Replacement Additional Past Surgical History / Comment(s): constantino hips & constantino. knee replacements,. rt breast biopsies Past Anesthesia/Blood Transfusion Reactions: No Reported Reaction Past Psychological History: Anxiety Smoking Status: Never smoker Past Alcohol Use History: Rare Past Drug Use History: None Reported - Past Family History Mother Family Medical History: Cancer Father Family Medical History: Cancer, Myocardial Infarction ([place]) Medications and Allergies Home Medications Medication Instructions Recorded Confirmed Type Atorvastatin [Lipitor] 10 mg PO HS 10/25/15 09/23/22 History Venlafaxine HCl ER [Effexor XR] 37.5 mg PO HS 06/06/21 09/23/22 History Alendronate Sodium [Fosamax] 70 mg PO WE 07/20/22 09/23/22 History Celecoxib [CeleBREX] 200 mg PO DAILY 07/20/22 09/23/22 History Metoprolol Tartrate [Lopressor] 25 mg PO DAILY 07/20/22 09/23/22 History Allergies Allergy/AdvReac Type Severity Reaction Status Date / Time sulfamethoxazole Allergy Itching Verified 09/23/22 09:25 [From Bactrim] trimethoprim [From Bactrim] Allergy Itching Verified 09/23/22 09:25 Physical Exam Vitals: Vital Signs Temp Pulse Pulse Resp BP BP BP 09/24/22 08:06 98.3 F 67 16 116/67 09/24/22 06:27 97.8 F 64 16 126/67 09/24/22 02:34 98.6 F 61 16 109/64 09/23/22 19:21 98.0 F 86 17 103/59 09/23/22 18:23 98.2 F 64 16 111/69 09/23/22 14:39 98.5 F 72 18 114/69 09/23/22 10:00 98.7 F 67 18 137/72 Pulse Ox 09/24/22 08:06 96 09/24/22 06:27 96 09/24/22 02:34 95 09/23/22 19:21 95 09/23/22 18:23 97 09/23/22 14:39 96 09/23/22 10:00 98 Intake and Output 09/23/22 09/24/22 09/24/22 22:59 06:59 14:59 Intake Total 105.024 232.446 Balance 105.024 232.446 Intake: Intake, IV Titration 105.024 112.446 Amount Heparin Sod,Pork in 0.45% 105.024 112.446 NaCl 25,000 unit In 0.45 % NaCl 1 250ml.bag @ 18 UNITS/KG/HR 12.41 mls/hr IV .Q20H9M [facility] Rx#: [id number] Oral 120 Other: Voiding Method Toilet # Voids 1 2 Weight 68.946 kg General appearance: The patient is alert, oriented, appears in no acute distress. HET: Head is normocephalic and atraumatic. Conjunctiva pink. Sclera anicteric. Neck: Supple without lymphadenopathy. Trachea midline. Heart: S1 S2. Regular rate and rhythm. Lungs: Clear to auscultation. Abdomen: Soft, nontender, nondistended with bowel sounds. No guarding or rigidity. Skin: No rashes. No jaundice. Extremities: Normal skin color and turgor. No pedal edema. Neurological: No focal deficits. Alert and oriented x3. Results CBC & Chem 7: 09/24/22 06:29 09/24/22 06:29 Labs: Abnormal Lab Results - Last 24 Hours (Table) 09/23/22 09/23/22 09/23/22 Range/Units 13:57 13:57 21:01 APTT >200.0 H* 77.8 H (22.0-30.0) sec Thyroglobulin 62.40 H (1.60-59.90) ng/mL 09/24/22 Range/Units 06:29 APTT 108.5 H* (22.0-30.0) sec Thyroglobulin (1.60-59.90) ng/mL Comments: CT pancreas biphase reports no suspicious pancreatic mass identified. Assessment and Plan (1) Abnormal finding on CT scan Narrative/Plan: 77-year-old female who presented to the emergency department with complaints of heart palpitations was found to have left lower extremity DVT and right pulmonar y embolism. She had a CT angiogram of the chest reported a hypodense lesion within the body of the pancreas. Further evaluation was done with a CT pancreas biphasic reported no pancreatic mass identified. CA-19-9 within normal limits, LFTs all within normal limits. No further workup indicated. Current Visit: Yes Status: Acute Code(s): R93.89 - ABNORMAL FINDINGS ON DX IMAGING OF OTH BODY STRUCTURES SNOMED Code(s): 872786039 (2) DVT (deep venous thrombosis) Current Visit: Yes Status: Acute Code(s): I82.409 - ACUTE EMBOLISM AND THOMBOS UNSP DEEP VN UNSP LOWER EXTREMITY SNOMED Code(s): 551924617 (3) Palpitations Current Visit: Yes Status: Acute Code(s): R00.2 - PALPITATIONS SNOMED Code(s): 38497132 (4) Pulmonary embolism Current Visit: Yes Status: Acute Code(s): I26.99 - OTHER PULMONARY EMBOLISM WITHOUT ACUTE COR PULMONALE SNOMED Code(s): 15712449 Plan: 1. Continue symptomatic and supportive care 2. Continue medical management 3. CT pancreas biphase reviewed with no concerns for pancreatic mass. All labs reviewed. There is no further workup indicated. Thank you for this consultation. Patient is cleared for discharge from gastroenterology. Dr. Pro Quintero I agree with the dictator's note, documented as a scribe by Marianne Alva.
--- NOTE | 2022-09-24 18:29 | P.PN ---
Subjective Progress Note Date: 09/24/22 Hospital course: Patient is a very pleasant 77 showed female with a past medical history of SVT with previous cardiac ablation, previous PE/DVT, hypertension, hyperlipidemia, and anxiety and depression. She presented to the emergency department on 09/23/22 with a chief complaint of racing heart accompanied by some shortness of breath. Patient reports she began feeling her heart race at home and checked her pulse ox which read heart rate of 135 bpm so she called her neighbors to bring her straight to the emergency department. Upon arrival to the emergency department patient underwent full evaluation. CBC and CMP were unremarkable. Troponin was negative at less than 0.012. D-dimer was elevated at 1.98 . CTA chest showing a right lower lobe subsegmental pulmonary emboli with no evidence of right heart strain, a 1.5 cm hypodense lesion within the pancreatic body, and a right thyroid lobe nodule of 1.5 cm. Chest x-ray completed negative for acute cardiopulmonary process. EKG showing normal sinus rhythm with a right bundle branch block at 82 bpm. Left lower extremity Doppler completed showing DVT involving the distal popliteal and proximal calf veins with superficial venous thrombus in the left posterior calf. Physical exam: Vital signs reviewed and stable. General: Nontoxic, no distress and appears stated age. Derm: Skin warm and dry, normal coloration for ethnicity. Head: Atraumatic, normocephalic and symmetric. Eyes: EOMs intact, no lid lag, and anicteric sclera Mouth: no lip lesions, mucus membranes moist Cardiovascular: regular rate and rhythm with normal S1S2, no murmur, positive posterior tibial pulses bilaterally, and cap refill < 2 seconds. Lungs: Respirations even, regular, and unlabored on room air. Lungs CTA bilaterally, no rhonchi, no rales, no wheezing, and no accessory muscle usage. Abdominal: soft, nontender to palpation, no guarding, no appreciable organomegal y Ext: ROM intact. No gross muscle atrophy, no edema, no contractures Neuro: Speech clear, face symmetrical and CN II-XII grossly intact with no noted focal neuro deficits Psych: Alert and oriented to person, place, time, and situation. Appropriate and pleasant affect. Assessment and Plan of Care: Tachycardia with history of SVT Palpitations and shortness of breath Left lower extremity DVT Right lower lobe subsegmental pulmonary emboli, no evidence of heart strain -Hematology consulted for recurrent blood clots and possible hypercoagulable workup. -Echocardiogram completed revealing preserved EF of 55-60% with mild to moderate mitral and aortic insufficiency. -Pulmonology following. Reviewed documentation on chart. -Continue heparin infusion at this time. Thyroid nodule, incidental finding -Thyroid ultrasound ordered and radiology report reviewed showing bilateral thyroid nodules with most suspicious in the right thyroid lobe measuring up to 2.1 cm consistent with TR4 nodule, recommending fine needle biopsy. -Patient will need to follow-up outpatient with machine clipper for thyroid biopsy. Hypodense lesion within pancreatic body, incidental finding. Pancreatic mass ruled out. -Pancreas CT was completed showing no suspicious pancreatic mass identified. -Discussed plan of care with gastroenterology TYPE SOLDERING MACHINE TENDER stating no concerns for pancreatic mass at this time clearing patient from gastroenterology perspective with no need for further workup or follow-up. Morning labs reviewed. CBC and CMP remain unremarkable. TSH 0.680 thyroglobulin 62.40. CODE STATUS: Full code DVT prophylaxis: Heparin infusion Discussed with: Patient, gastroenterology TYPE SOLDERING MACHINE TENDER, and RN Anticipated discharge date: Clinical course to determine Anticipated discharge place: Home Patient was seen independently by Nurse Pracitioner. This document was prepared using [employer] dictation software. Please allow for errors in ophthalmology assistant, while rare they do occur. Rafael Ladd NP rendered care for this patient independently, reviewed the findings and plan as documented in the note above. I did not physically speak with or examine the patient on this date. Objective - Vital Signs Vital signs: Vital Signs Temp 98.3 F 09/24/22 08:06 Pulse 63 09/24/22 10:36 Resp 16 09/24/22 08:06 BP 116/67 09/24/22 08:06 Pulse Ox 96 09/24/22 08:06 FiO2 Intake & Output 09/23/22 09/24/22 09/24/22 18:59 06:59 18:59 Intake Total 65.773 39.251 232.446 Balance 65.773 39.251 232.446 Weight 68.946 kg Intake: Intake, IV Titration 65.773 39.251 112.446 Amount Heparin Sod,Pork in 0.45% 65.773 39.251 112.446 NaCl 25,000 unit In 0.45 % NaCl 1 250ml.bag @ 18 UNITS/KG/HR 12.41 mls/hr IV .Q20H9M [facility] Rx#: [id number] Oral 120 Other: Voiding Method Toilet Toilet # Voids 2 - Labs CBC & Chem 7: 09/24/22 06:29 09/24/22 06:29 Labs: Abnormal Lab Results - Last 24 Hours (Table) 09/23/22 09/23/22 09/23/22 Range/Units 13:57 13:57 21:01 APTT >200.0 H* 77.8 H (22.0-30.0) sec Glucose (74-99) mg/dL Thyroglobulin 62.40 H (1.60-59.90) ng/mL 09/24/22 09/24/22 Range/Units 06:29 06:29 APTT 108.5 H* (22.0-30.0) sec Glucose 104 H (74-99) mg/dL Thyroglobulin (1.60-59.90) ng/mL
[2022-09-24] MEDS: ATORVASTATIN 10 MG TAB PO SCH (20:14)
[2022-09-24] MEDS: VENLAFAXINE HCL ER 37.5 MG CAP PO SCH (20:14)
--- NOTE | 2022-09-24 22:38 | P.CONS ---
History of Present Illness - Reason for Consult Consult date: 09/24/22 DVT with PE - Chief Complaint Palpitations - History of Present Illness Ms. Ferrara is a 77-year-old woman with a past medical history significant for DVT/PE along with SVT who was admitted with acute pulmonary embolism. 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 She initially tried to return to sleep, but noted having persistent palpitations. She denied any associated dizziness, lightheadedness, loss of consciousness, or chest pain. She noted this being similar to prior episodes of SVT. She presented to the ED for additional management. In the ED, she was hemodynamically stable and afebrile. CMP and CBC revealed no acute abnormalities. She did have elevated D-dimer at 1.98. CT angio revealed right lower lobe sub-segmental pulmonary embolism. Doppler of the left lower extremity noted DVT in the distal, popliteal, and proximal calf veins. She was also noted to have a superior venous thrombosis in the posterior calf. There was an incidental finding of 1.5 cm hypodense pancreatic lesion along with a 1.5 cm right thyroid lobe nodule. She was started on a heparin drip and admitted to trauma resident for additional management recommendations. She noted previously having a DVT and PE being diagnosed simultaneously around 2004. She notes at that time, she was taking tamoxifen for prophylaxis of breast malignancy, but she denies having any invasive breast cancer or DCIS. She was on Coumadin following this, but does not recall how long she was on Coumadin for. She notes she has been off of therapeutic anticoagulation for many years. She denies any recent trauma, infection, surgery, or recent prolonged travel. 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 DVT & PE 2009 History of Any Multi-Drug Resistant Organisms: None Reported Past Surgical History: Appendectomy, Breast Surgery, Cardiac Ablation, Joint Replacement Additional Past Surgical History / Comment(s): constantino hips & constantino. knee replacements,. rt breast biopsies Past Anesthesia/Blood Transfusion Reactions: No Reported Reaction Past Psychological History: Anxiety Smoking Status: Never smoker Past Alcohol Use History: Rare Past Drug Use History: None Reported - Past Family History Mother Family Medical History: Cancer Father Family Medical History: Cancer, Myocardial Infarction ([place]) Medications and Allergies Home Medications Medication Instructions Recorded Confirmed Type Atorvastatin [Lipitor] 10 mg PO HS 10/25/15 09/23/22 History Venlafaxine HCl ER [Effexor XR] 37.5 mg PO HS 06/06/21 09/23/22 History Alendronate Sodium [Fosamax] 70 mg PO WE 07/20/22 09/23/22 History Celecoxib [CeleBREX] 200 mg PO DAILY 07/20/22 09/23/22 History Metoprolol Tartrate [Lopressor] 25 mg PO DAILY 07/20/22 09/23/22 History Allergies Allergy/AdvReac Type Severity Reaction Status Date / Time sulfamethoxazole Allergy Itching Verified 09/23/22 09:25 [From Bactrim] trimethoprim [From Bactrim] Allergy Itching Verified 09/23/22 09:25 Physical Exam Vitals: Vital Signs Temp Pulse Pulse Resp BP BP Pulse Ox 09/24/22 14:49 98.6 F 60 17 111/65 95 09/24/22 10:36 63 09/24/22 08:06 98.3 F 67 16 116/67 96 09/24/22 06:27 97.8 F 64 16 126/67 96 09/24/22 02:34 98.6 F 61 16 109/64 95 Intake and Output 09/24/22 09/24/22 09/24/22 06:59 14:59 22:59 Intake Total 382.976 118 Balance 382.976 118 Intake: Intake, IV Titration 144.976 Amount Heparin Sod,Pork in 0.45% 144.976 NaCl 25,000 unit In 0.45 % NaCl 1 250ml.bag @ 18 UNITS/KG/HR 12.41 mls/hr IV .Q20H9M [facility] Rx#: [id number] Oral 238 118 Other: Voiding Method Toilet Toilet # Voids 2 2 1 - Constitutional General appearance: cooperative, no acute distress - EENT Eyes: EOMI - Respiratory Respiratory: bilateral: CTA - Cardiovascular Rhythm: regular - Gastrointestinal General gastrointestinal: no distended, normal bowel sounds, soft, no tenderness - Integumentary Integumentary: no rash - Neurologic Neurologic: CNII-XII intact Results CBC & Chem 7: 09/24/22 06:29 09/24/22 06:29 Labs: Abnormal Lab Results - Last 24 Hours (Table) 09/23/22 09/24/22 09/24/22 Range/Units 13:57 06:29 06:29 APTT 108.5 H* (22.0-30.0) sec Glucose 104 H (74-99) mg/dL Thyroglobulin 62.40 H (1.60-59.90) ng/mL 09/24/22 Range/Units 14:58 APTT 52.3 H (22.0-30.0) sec Glucose (74-99) mg/dL Thyroglobulin (1.60-59.90) ng/mL CT scan - chest: report reviewed Assessment and Plan (1) Abnormal finding on CT scan Current Visit: Yes Status: Acute Code(s): R93.89 - ABNORMAL FINDINGS ON DX IMAGING OF OTH BODY STRUCTURES SNOMED Code(s): 987531438 (2) DVT (deep venous thrombosis) Current Visit: Yes Status: Acute Code(s): I82.409 - ACUTE EMBOLISM AND THOMBOS UNSP DEEP VN UNSP LOWER EXTREMITY SNOMED Code(s): 282882385 (3) Pulmonary embolism Current Visit: Yes Status: Acute Code(s): I26.99 - OTHER PULMONARY EMBOLISM WITHOUT ACUTE COR PULMONALE SNOMED Code(s): 49086325 Plan: DVT/PE -Noted to have prior history of DVT and PE in 2004 that was likely provoked secondary to tamoxifen taken for prophylaxis of breast cancer -She was on therapeutic anticoagulation with Coumadin, but did not know how long she was on this for -She presents with recurrent DVT/PE without clear exacerbating factors, which would likely qualify this as an unprovoked episode-Given this DVT and PE were unprovoked and this is her second episode of VTE, I do recommend lifelong anticoagulation -She is currently on therapeutic heparin drip -This can be transitioned to Eliquis 10 mg twice daily for 1 week followed by 5 mg twice daily when she is cleared for discharge -Routine screening for breast and colon cancer should be considered outpatient Concern for pancreatic lesion -Incidental 1.5 cm hypodense pancreatic lesion was noted on CTA -CT abdomen and pelvis with pancreatic protocol did not reveal suspicious lesion on the pancreas -No additional work-up from a oncology perspective is required
[2022-09-25] MEDS: PANTOPRAZOLE 40 MG TABLET PO SCH (06:26)
[2022-09-25] MEDS ORDERED: PATIENT'S OWN (Alendronate Sodium [Fosamax] 70 MG Tablet) PO SCH (07:00)
[2022-09-25 07:02] VITALS: BP 147/79; PULSE 58; RESP 15; TEMP 97.5
[2022-09-25] MEDS ORDERED: APIXABAN 5 MG TAB PO SCH (09:00)
[2022-09-25] MEDS: METOPROLOL TARTRATE 25 MG TAB PO SCH (09:10)
--- NOTE | 2022-09-25 09:47 | P.PN ---
Subjective Progress Note Date: 09/25/22 Principal diagnosis: questionable pancreatic lesion This a pleasant 77-year-old female who presented to the emergency department early yesterday morning with complaints of racing her and her palpitations. Patient states that she woke up at the middle of the night with heart pa lpitations, when she awoke, she continued to have heart palpitations and racing heart. She denied any chest pain or shortness of breath. She does have a history of SVT with cardiac ablation approximately 15 years ago and thought she may be having a recurrence. Past medical history includes DVT, pulmonary embolism, squamous cell carcinoma, hyperlipidemia, memory impairment, and GERD. Lab work showed an elevated d-dimer. Patient had a venous duplex of the lower extremities which was positive for left DVT. A CT angiogram of the chest was completed that reported a right lower lobe subsegmental pulmonary emboli with no evidence of right heart strain. Also reported a 1.5 cm hypodense lesion within the pancreatic body. Further evaluation with CT abdomen and pelvis pancreatic mass protocol recommended. Gastroenterology was consulted for possible pancreatic lesion. Primary medical team ordered a CT of the abdomen and pelvis without contrast was a limited exam due to lack of IV contrast. No acute abdominal/pelvic process. Colonic diverticulosis without evidence for acute diverticulitis. Mild left elbow collect a cyst without evidence for hydronephrosis. Nonvisualization is suggested pancreas body lesion from CTA chest likely due to lack of intravenous contrast. Patient currently denies any chest pain, shortness of breath, denies heart palpitations at this time. She denies abdominal pain, nausea or vomiting. No previous history of pancreatic or liver disease. no history of pancreatitis, alcoholism. States no recent surgeries and patient is active. Last DVT and pulmonary embolism greater than 10 years ago, unprovoked. Patient denies any history of clotting disorders. She is currently on a heparin drip. States her last colonoscopy was likely within the last 10 years which was normal. Today's labs WBC 5.5 hemoglobin 13.9 hematocrit 41 platelet count 214,000 INR 1.1 sodium 139 potassium 3.9 BUN 12 creatinine 0.7 total bilirubin 0.5 AST 28 ALT 18 alkaline phosphatase 75 CEA 17.4 CA-19-9 CA-19-9 13.2 09/25/2022 over patient seen and examined today as a follow-up. She continues to deny any abdominal pain, nausea vomiting. Hematology has seen patient and also reviewed CAT scan of pancreas and agreed concern for pancreatic mass, no further workup indicated. Objective - Vital Signs Vital signs: Vital Signs Temp 97.5 F L 09/25/22 07:01 Pulse 58 L 09/25/22 07:01 Resp 15 09/25/22 07:01 BP 147/79 09/25/22 07:01 Pulse Ox 98 09/25/22 07:01 FiO2 Intake & Output 09/24/22 09/25/22 09/25/22 18:59 06:59 18:59 Intake Total 500.976 109.083 118 Balance 500.976 109.083 118 Intake: Intake, IV Titration 144.976 109.083 Amount Heparin Sod,Pork in 0.45% 144.976 109.083 NaCl 25,000 unit In 0.45 % NaCl 1 250ml.bag @ 18 UNITS/KG/HR 12.41 mls/hr IV .Q20H9M [facility] Rx#: [id number] Oral 356 118 Other: Voiding Method Toilet Toilet # Voids 2 3 - Exam General appearance: The patient is alert, oriented, appears in no acute distress. HET: Head is normocephalic and atraumatic. Conjunctiva pink. Sclera anicteric. Neck: Supple without lymphadenopathy. Abdomen: Soft, nontender, nondistended with bowel sounds. No guarding or rigidity. Extremities: Normal skin color and turgor. No pedal edema Skin: No rashes, no jaundice Neurological: No focal deficits. Alert and oriented. - Labs CBC & Chem 7: 09/24/22 06:29 09/24/22 06:29 Labs: Abnormal Lab Results - Last 24 Hours (Table) 09/24/22 09/24/22 09/25/22 Range/Units 06:29 14:58 05:06 APTT 52.3 H 54.8 H (22.0-30.0) sec Glucose 104 H (74-99) mg/dL Assessment and Plan (1) Abnormal finding on CT scan Narrative/Plan: 77-year-old female who presented to the emergency department with complaints of heart palpitations was found to have left lower extremity DVT and right pulmonary embolism. She had a CT angiogram of the chest reported a hypodense lesion within the body of the pancreas. Further evaluation was done with a CT pancreas biphasic reported no pancreatic mass identified. CA-19-9 within normal limits, LFTs all within normal limits. No further workup indicated. Current Visit: Yes Status: Acute Code(s): R93.89 - ABNORMAL FINDINGS ON DX IMAGING OF OTH BODY STRUCTURES SNOMED Code(s): 058673659 (2) DVT (deep venous thrombosis) Current Visit: Yes Status: Acute Code(s): I82.409 - ACUTE EMBOLISM AND THOMBOS UNSP DEEP VN UNSP LOWER EXTREMITY SNOMED Code(s): 762278807 (3) Palpitations Current Visit: Yes Status: Acute Code(s): R00.2 - PALPITATIONS SNOMED Code(s): 29433335 (4) Pulmonary embolism Current Visit: Yes Status: Acute Code(s): I26.99 - OTHER PULMONARY EMBOLISM WITHOUT ACUTE COR PULMONALE SNOMED Code(s): 31997324 Plan: 1. Continue symptomatic and supportive care 2. Continue medical management 3. CT pancreas biphase reviewed with no concerns for pancreatic mass. All labs reviewed. There is no further workup indicated. Thank you for this consultation. Patient is cleared for discharge from gastroenterology. We will sign off at this time. Dr. Pro Quintero I agree with the dictator's note, documented as a scribe by Marianne Alva.
--- NOTE | 2022-09-25 11:09 | US ---
EXAMINATION TYPE: US venous doppler duplex LE RT DATE OF EXAM: 09/25/2022 10:35 AM COMPARISON: NONE CLINICAL HISTORY: baseline, LLE DVT and PE. Known left leg DVT 2 days ago, on thinners, right leg not symptomatic SIDE PERFORMED: Right TECHNIQUE: The lower extremity deep venous system is examined utilizing real time linear array sonog artemio with graded compression, doppler sonography and color-flow sonography. VESSELS IMAGED: Common Femoral Vein Deep Femoral Vein Greater Saphenous Vein * Femoral Vein Popliteal Vein Small Saphenous Vein * Proximal Calf Veins (* superficial vessels) Right Leg: Negative for DVT IMPRESSION: No evidence for DVT
--- NOTE | 2022-09-25 11:51 | P.DS ---
Providers Date of admission: 09/24/22 08:46 Expected date of discharge: 09/25/22 Attending physician: Franki Rogers MD Consults: 09/23/22 09:06 Consult Physician Urgent Consulting Provider: Samira Vaughan Consult Reason/Comments: PE/DVT Do you want consulting provider notified?: Yes 09/23/22 13:06 Consult Physician Routine Consulting Provider: David Wilde Consult Reason/Comments: hypercoagulable state (DVT/PE) with pancreatic and thyroid nodules Do you want consulting provider notified?: Yes 09/24/22 08:03 Consult Physician Routine Consulting Provider: Blossom Quintero Consult Reason/Comments: ? pancreatic lesion Do you want consulting provider notified?: Yes Primary care physician: Cameron Raphael MD Hospital Course: Discharge Diagnosis: Left lower extremity DVT .Patient has been started on anticoagulation with Eliquis. She was evaluated by dumper central concrete mixing plant and door to door fundraising collector recommending lifelong anticoagulation. patient to follow up outpatient with pulmonology for continued monitoring and anticoagulation management. Right lower lobe subsegmental pulmonary emboli, no evidence of heart strain. Patient has been started on anticoagulation with Eliquis. She was evaluated by dumper central concrete mixing plant and door to door fundraising collector recommending lifelong anticoagulation. patient to follow up outpatient with pulmonology for continued monitoring and anticoagulation management. Tachycardia with history of SVT. Palpitations and shortness of breath secondary to above diagnoses. Thyroid nodule, incidental finding. patient to follow up outpatient with subject scientific research as discussed for recommended thyroid biopsy. -Thyroid ultrasound ordered and radiology report reviewed showing bilateral thyroid nodules with most suspicious in the right thyroid lobe measuring up to 2.1 cm consistent with TR4 nodule, recommending fine needle biopsy. Hypodense lesion within pancreatic body, incidental finding. Pancreatic mass ruled out. Inspector Chief evaluated and reviewed CT, stating no concerns for pancreatic mass at this time clearing patient from gastroenterology perspective with no need for further workup or follow-up. Hospital Course: Patient is a very pleasant 77 showed female with a past medical history of SVT with previous cardiac ablation, previous PE/DVT, hypertension, hyperlipidemia, and anxiety and depression. She presented to the emergency department on 09/23/22 with a chief complaint of racing heart accompanied by some shortness of breath. Patient reports she began feeling her heart race at home and checked her pulse ox which read heart rate of 135 bpm so she called her neighbors to bring her straight to the emergency department. Upon arrival to the emergency department patient underwent full evaluation. CBC and CMP were unremarkable. Troponin was negative at less than 0.012. D-dimer was elevated at 1.98 . CTA chest showing a right lower lobe subsegmental pulmonary emboli with no evidence of right heart strain, a 1.5 cm hypodense lesion within the pancreatic body, and a right thyroid lobe nodule of 1.5 cm. Chest x-ray completed negative for acute cardiopulmonary process. EKG showing normal sinus rhythm with a right bundle branch block at 82 bpm. Left lower extremity Doppler completed showing DVT involving the distal popliteal and proximal calf veins with superficial venous thrombus in the left posterior calf. Echocardiogram was completed revealing normal EF of 55-60%. Patient has been started on anticoagulation with Eliquis. She was evaluated by dumper central concrete mixing plant and door to door fundraising collector recommending lifelong anticoagulation. patient to follow up outpatient with pulmonology for continued monitoring and anticoagulation management. Physical exam: Vital signs reviewed and stable. General: Nontoxic, no distress and appears stated age. Derm: Skin warm and dry, normal coloration for ethnicity. Head: Atraumatic, normocephalic and symmetric. Eyes: EOMs intact, no lid lag, and anicteric sclera Mouth: no lip lesions, mucus membranes moist Cardiovascular: regular rate and rhythm with normal S1S2, no murmur, positive posterior tibial pulses bilaterally, and cap refill < 2 seconds. Lungs: Respirations even, regular, and unlabored on room air. Lungs CTA bilaterally, no rhonchi, no rales, no wheezing, and no accessory muscle usage. Abdominal: soft, nontender to palpation, no guarding, no appreciable organomegaly Ext: ROM intact. No gross muscle atrophy, no edema, no contractures Neuro: Speech clear, face symmetrical and CN II-XII grossly intact with no noted focal neuro deficits Psych: Alert and oriented to person, place, time, and situation. Appropriate and pleasant affect. A total of 34 minutes of time were spent preparing this complex discharge summary. Pt was discharged on 09/25/22 at 11:48 AM. Patient was seen independently by Nurse Practitioner. This document was prepared using [employer] dictation software. Please allow for errors in enterprise architect manager while rare they do occur. Rafael Ladd NP rendered care for this patient independently, reviewed the findin gs and plan as documented in the note above. I did not physically speak with or examine the patient on this date. Patient Condition at Discharge: Stable Plan - Discharge Summary Discharge Rx Participant: No New Discharge Prescriptions: New Apixaban [Eliquis Starter Pack (for VTE)] See Taper PO DIRECTED 30 Days #1 each Continue Atorvastatin [Lipitor] 10 mg PO HS Venlafaxine HCl ER [Effexor XR] 37.5 mg PO HS Alendronate Sodium [Fosamax] 70 mg PO WE Metoprolol Tartrate [Lopressor] 25 mg PO DAILY Discontinued Celecoxib [CeleBREX] 200 mg PO DAILY Discharge Medication List Atorvastatin [Lipitor] 10 mg PO HS 10/25/15 [History] Venlafaxine HCl ER [Effexor XR] 37.5 mg PO HS 06/06/21 [History] Alendronate Sodium [Fosamax] 70 mg PO WE 07/20/22 [History] Metoprolol Tartrate [Lopressor] 25 mg PO DAILY 07/20/22 [History] Apixaban [Eliquis Starter Pack (for VTE)] See Taper PO DIRECTED 30 Days #1 each 09/25/22 [Rx] Follow up Appointment(s)/Referral(s): Samira Vaughan MD [STAFF PHYSICIAN] - 10/21/22 8:45 am Cameron Raphael MD [Primary Care Provider] - 1-2 days Zabrina Hogan MD [STAFF PHYSICIAN] - 1 Week (Will need to schedule appointment for thyroid biopsy) Patient Instructions/Handouts: Pulmonary Embolism (DC), Deep Vein Thrombosis (DC), Thyroid Nodules (DC) Discharge Disposition: HOME SELF-CARE
--- NOTE | 2022-09-25 11:58 | P.PN ---
Subjective Progress Note Date: 09/25/22 This is a very pleasant 77-year-old female patient who has a history of anxiety/depression, hypertension, hyperlipidemia, SVT with previous cardiac ablation, previous PE/DVT who woke up this morning on several occasions with heart racing and palpitations. She presented here to the emergency room for the same. EKG revealed sinus rhythm with a right bundle branch block. Chest x-ray revealed no acute pulmonary process. CT angiogram revealed a right lower lobe subsegmental pulmonary emboli. No evidence of right heart strain. She was noted to have a 1.5 cm hypodense lesion within the pancreatic body. Mild prominence of the left renal collecting system done could not rule out hydronephrosis, right thyroid lobe 1.5 cm nodule. Dopplers of lower extremity revealed a DVT on the left. Ultrasound of thyroid revealed bilateral nodules with no suspicious in the right thyroid lobe measuring a 2.1 cm nodule. FNA was recommended. Computed tomography scan of the abdomen and pelvis revealed no acute processes. Colonic diverticulosis without diverticulitis. Mild left caliectasis without evidence of hydronephrosis. . Nonvisualization of suggested pancreas lesion from CTA likely due to lack of IV contrast. White count 4.4. Hemoglobin 14.6. D-dimer 1.98. Sodium 137. Potassium 4.1. Bicarb 30. BUN 17. Creatinine 0.79. AST 29. ALT 21. Troponin negative 1. She's been initiated on a heparin drip. She is seen in consultations in the emergency department. She is sitting up on the stretcher. Awake and alert in no acute distress. Currently in sinus rhythm. Currently maintaining O2 saturations in the 90s on room air. No pulmonary complaints whatsoever. If not for the previous heart palpitations she feels well otherwise. The patient is seen today for 09/24/2022 in follow-up on the regular medical floor. She is currently sitting up in bed. Awake and alert in no acute dist ress. She denies any shortness of breath, cough or congestion. She denies any further palpitations or chest discomfort. She is maintaining good O2 saturations in the mid 90s on room air. She's been afebrile. Hemodynamically stable. Echocardiogram reveals normal left ventricular size and systolic function. No significant valvular abnormalities. White count 5.5. Hemoglobin 12.9. Sodium 139. Potassium 3.9. Bicarb 29. BUN 12. Creatinine 0.73. Glucose 104. CEA 2.1. CA 199 13.2. Thyroglobulin 62.4. Computed tomography scan of the pancreas is pending. The patient is seen today 09/25/2022 in follow-up on the regular medical floor. She is awake and alert in no acute distress. Maintaining good O2 saturations in the 90s on room air. No worsening shortness of breath, cough or congestion. No further palpitations. No abdominal discomfort. He remains on a heparin drip. Dopplers of the right lower extremity was negative for DVT. CT of the pancreas biphasic reported no pancreatic mass. The CA 199 was within normal limits. No further workup recommended by GI services. She'll be transitioned to [facility]. Objective - Vital Signs Vital signs: Vital Signs Temp 97.5 F L 09/25/22 07:01 Pulse 58 L 09/25/22 07:01 Resp 15 09/25/22 07:01 BP 147/79 09/25/22 07:01 Pulse Ox 98 09/25/22 07:01 FiO2 Intake & Output 09/24/22 09/25/22 09/25/22 18:59 06:59 18:59 Intake Total 500.976 109.083 118 Balance 500.976 109.083 118 Intake: Intake, IV Titration 144.976 109.083 Amount Heparin Sod,Pork in 0.45% 144.976 109.083 NaCl 25,000 unit In 0.45 % NaCl 1 250ml.bag @ 18 UNITS/KG/HR 12.41 mls/hr IV .[id number] [facility] Rx#: [id number] Oral 356 118 Other: Voiding Method Toilet Toilet # Voids 2 3 - Exam GENERAL EXAM: Alert, 77 year old female, on room air, comfortable in no apparent distress. HEAD: Normocephalic. EYES: Normal reaction of pupils, equal size. NOSE: Clear with pink turbinates. THROAT: No erythema or exudates. NECK: No masses, no JVD. CHEST: No chest wall deformity. LUNGS: Equal air entry with no crackles, wheeze, rhonchi or dullness. CVS: S1 and S2 normal with no audible murmur, regular rhythm. ABDOMEN: No hepatosplenomegaly, normal bowel sounds, no guarding or rigidity. SPINE: No scoliosis or deformity SKIN: No rashes CENTRAL NERVOUS SYSTEM: No focal deficits, tone is normal in all 4 extremities. EXTREMITIES: There is no peripheral edema. No clubbing, no cyanosis. Peripheral pulses are intact. - Labs CBC & Chem 7: 09/24/22 06:29 09/24/22 06:29 Labs: Abnormal Lab Results - Last 24 Hours (Table) 09/24/22 09/25/22 Range/Units 14:58 05:06 APTT 52.3 H 54.8 H (22.0-30.0) sec Assessment and Plan Assessment: Acute right lower lobe subsegmental pulmonary emboli with a left lower extremity DVT. No DVT in the right lower extremity. Initiated on a heparin drip Heart palpitations in a patient with a previous history of SVT and cardiac ablation. Currently in sinus rhythm. Echocardiogram reveals preserved left ventricular systolic function. No significant valvular abnormalities. 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 Number of minutes spent on the visit: 10.
== END 2022-09-25 14:00 | disposition home or self-care (01) ==
LOC: EC 05:53 → 6NMEDSUR 09:13 → INTOOBSV 09-24 08:46 → OBSVTOIN 09-24 08:46 → UNDODISIN 09-25 14:00
PROVIDERS: ADMIT Student in an Organized Health Care Education/Training Program; ATTEND Student in an Organized Health Care Education/Training Program
DX: I82.432 Acute embolism and thrombosis of left popliteal vein (principal); I82.4Z2 Acute embolism and thrombosis of unspecified deep veins of left distal lower extremity; E04.1 Nontoxic single thyroid nodule; N28.1 Cyst of kidney, acquired; K86.89 Other specified diseases of pancreas; I47.1 Supraventricular tachycardia; I45.10 Unspecified right bundle-branch block; F41.9 Anxiety disorder, unspecified; K21.9 Gastro-esophageal reflux disease without esophagitis; E78.5 Hyperlipidemia, unspecified; K59.00 Constipation, unspecified; J98.11 Atelectasis; M81.0 Age-related osteoporosis without current pathological fracture; K42.9 Umbilical hernia without obstruction or gangrene; K57.30 Diverticulosis of large intestine without perforation or abscess without bleeding; I10 Essential (primary) hypertension; K86.9 Disease of pancreas, unspecified; I70.0 Atherosclerosis of aorta; R79.89 Other specified abnormal findings of blood chemistry; I08.3 Combined rheumatic disorders of mitral, aortic and tricuspid valves; I37.1 Nonrheumatic pulmonary valve insufficiency; Z86.711 Personal history of pulmonary embolism; Z79.899 Other long term (current) drug therapy; Z88.2 Allergy status to sulfonamides; Z96.643 Presence of artificial hip joint, bilateral; Z96.653 Presence of artificial knee joint, bilateral; Z85.828 Personal history of other malignant neoplasm of skin; Z80.9 Family history of malignant neoplasm, unspecified; Z82.49 Family history of ischemic heart disease and other diseases of the circulatory system; Z80.3 Family history of malignant neoplasm of breast; Z80.1 Family history of malignant neoplasm of trachea, bronchus and lung; Z66 Do not resuscitate
CPT/HCPCS: 96366 ×4; 96365; 99291; 36415; 93005; 93306; 97161; 97165; 85379; 80053 ×2; 86300; 86304; 84443; 82607; 82378; 83735 ×2; 84100; 84484; 85025 ×2; 85610; 85730 ×3; 84432; 86800; 86376; 86301; 71046; 76536; 93971 ×2; 71275; 74176; 74160; G0378 ×3; J1644 ×3; Q9967 ×2

== ENCOUNTER → 2023-01-14 | Outpatient (CLI) | payer MEDICARE ==
[2023-01-14 08:57] VITALS: BP 107/70; PULSE 54; RESP 13; TEMP 97.7
--- NOTE | 2023-01-14 09:14 | P.PN ---
Subjective Progress Note Date: 01/14/23 Principal diagnosis: fibrocystic breast changes Fibrocystic breast changes Mrs. Ferrara is a 77-year-old white female who was initially seen approximately five years ago with a complaint of pain in her right breast. Since that time she has taken primrose oil and the pain is only present with deep palpation. She had a bilateral mammogram performed on This was 3-D. This was benign BIRADS 2. The patient drinks decaffeinated coffee, she is not exposed to secondhand smoke, and she drinks approximately one soda a day and this is caffeine free. She does not smoke. She does not eat chocolate often. She is not taking primrose oil at this time, but has noticed a decreased discomfort in the right breast. At this tiime she is not complaining of any lumps masses or nodules in either breast. She is not complaining about breast pain. Cary risk 4.1% at 5 years NCI risk 8.2% lifetime Family history: 1. Maternal grandmother with leukemia 2. Mother breast cancer 47 of breast cancer, locally advanced "hole in her side" 3. Father melanoma and prostate cancer Past surgical history: 1. Hysterectomy 2. Appendectomy 3. Bilateral hip replacement 4. Cardiac ablation/ done for SVT 5. Left-sided neck lump 6. right knee replacement 7. left knee replacement 8. parathyroid resection Past medical history: 1. hypotension; follows with cardiology 2. DVT 20 years ago 3. eye disorder 4. reflux 5. hyperlipedema 6. Pulmoary embolis 20 years ago 7. osteoarthrits 8. parathyroid elevated 9. Left DVT/pulmonary embolus on September 2022 menarche: 14 : none, intentional menopause: about 51, hysterectomy at 61 took ovaries done for fibroid tumors hormones: none BCP: 5 years Social history: Smoking: Negative Alcohol: negative Drugs: Negative - Constitutional Constitutional: Reports sweats, Denies chills, Denies fever - EENT Eyes: bilateral decreased vision (macular degenertion), denies blurred vision, denies pain Ears: deny: decreased hearing, tinnitus Ears, nose, mouth and throat: Denies headache, Denies sore throat - Breasts Breasts: bilateral: as per HPI - Cardiovascular Comment: cardiac ablation, has PVC Cardiovascular: Reports recent hypotension, scheduled for a cardiac cath - Respiratory Respiratory: Denies cough - Gastrointestinal Gastrointestinal: Denies abdominal pain, Denies diarrhea, Denies nausea, Denies vomiting, reflux gone on medication - Menstruation Menstruation: Reports post hysterectomy, Reports postmenopausal - Musculoskeletal Comment: osteo arthritis - Integumentary Comment: pre-cancers removed - Neurological Neurological: Denies numbness, Denies weakness - Psychiatric Psychiatric: Denies anxiety, Denies depression - Endocrine Endocrine: Denies fatigue, Denies weight change - Hematologic/Lymphatic Comment: aspirin - Allergic/Immunologic Comment: Bactrim Objective - Vital Signs Vital signs: Vital Signs Temp 97.7 F 01/14/23 08:53 Pulse 54 L 01/14/23 08:53 Resp 13 01/14/23 08:53 BP 107/70 01/14/23 08:53 Pulse Ox 97 01/14/23 08:53 FiO2 Intake & Output 01/13/23 01/14/23 01/14/23 18:59 06:59 18:59 Weight 63.503 kg - Constitutional General appearance: Present: cooperative - EENT Eyes: Present: EOMI ENT: Present: hearing grossly normal - Neck Neck: Present: normal ROM - Respiratory Respiratory: bilateral: CTA - Cardiovascular Rhythm: regular Heart sounds: normal: S1, S2 - Gastrointestinal General gastrointestinal: Present: soft - Integumentary Integumentary: Present: normal turgor - Musculoskeletal Musculoskeletal: Present: gait normal - Psychiatric Psychiatric: Present: A&O x's 3, appropriate affect, intact judgment & insight - Additional findings Additional findings: Breast examination: BRA: 40C Inspection: Right breast larger than left, bilateral grade 3 ptosis, palpation: Right breast: Multi-positional exam fibrocystic changes or dominant masses or nodules of concern Right axilla: No adenopathy of concern Left breast: Multi-positional exam fibrocystic changes no dominant masses or nodules of concern Left axilla: No adenopathy of concern Assessment and Plan Assessment: Impression: 1. Hypotension, follows with cardiology 2. DVT 3. Eye disorder 4. Reflux 5. Hyperlipidemia 6. Pulmonary emboli in the past 7. Osteoarthritis 8. Bilateral fibrocystic breast changes 9. Recent bilateral mammogram BIRADS 2 (01-08-23) 10. surgery for hyperparathyroidism 11. Recent left DVT and pulmonary embolus patient is presently on elaquis Plan: Bilateral mammogram in 1 year Patient to call sooner any questions or concerns patient declined chemoprevention Cc: Dr. Mcneil
== END ==
LOC: WWCWWP 08:39
PROVIDERS: ATTEND Surgery
DX: Z12.31 Encounter for screening mammogram for malignant neoplasm of breast (principal); I95.9 Hypotension, unspecified; I82.409 Acute embolism and thrombosis of unspecified deep veins of unspecified lower extremity; K21.9 Gastro-esophageal reflux disease without esophagitis; M19.90 Unspecified osteoarthritis, unspecified site; N60.11 Diffuse cystic mastopathy of right breast; N60.12 Diffuse cystic mastopathy of left breast; E78.5 Hyperlipidemia, unspecified; E03.9 Hypothyroidism, unspecified; I26.99 Other pulmonary embolism without acute cor pulmonale; H57.9 Unspecified disorder of eye and adnexa; Z80.3 Family history of malignant neoplasm of breast; Z88.2 Allergy status to sulfonamides; Z79.899 Other long term (current) drug therapy; Z79.01 Long term (current) use of anticoagulants

== ENCOUNTER → 2023-01-27 | Outpatient (CLI) | payer MEDICARE ==
[2023-01-27 10:48] LABS: Basophils # (A) 0.03 X 10*3/uL (0.00-0.10); Basophils % (A) 0.5 %; Eosinophils # (A) 0.03 X 10*3/uL (0.04-0.35); Eosinophils % (A) 0.5 %; HCT 43.2 % (37.2-46.3); HGB 13.7 d/dL (12.0-15.0); Lymphocytes # (A) 1.21 X 10*3/uL (0.90-5.00); Lymphocytes % (A) 21.8 %; MCHC 31.7 d/dL (32.0-37.0); MCV 97.7 FL (80.0-97.0); Mean Platelet Volume 10.2 FL (9.5-12.2); Monocytes # (A) 0.54 X 10*3/uL (0.20-1.00); Monocytes % (A) 9.7 %; NRBC Per 100 WBC 0 X 10*3/uL (0.00-0.01); Neutrophils # (A) 3.74 X 10*3/uL (1.80-7.70); Neutrophils % (A) 67.3 %; Platelet Count 233 X 10*3/uL (140-440); RBC 4.42 X 10*6/uL (4.10-5.20); RDW 13.1 % (11.5-14.5); WBC 5.56 X 10*3/uL (4.50-10.00)
[2023-01-27 10:55] LABS: ALT 25 U/L (8-44); AST 27 U/L (13-35); Albumin 4.6 d/dL (3.8-4.9); Albumin/Globulin Ratio 2.09 Ratio (1.60-3.17); Alkaline Phosphatase 69 U/L (41-126); Blood Urea Nitrogen 16.4 mg/dL (9.0-27.0); Calcium 9.6 mg/dL (8.7-10.3); Chloride 103 mmol/L (96-109); Globulin 2.2 d/dL (1.6-3.3); Glucose 94 mg/dL (70-110); Potassium 4.6 mmol/L (3.5-5.5); Sodium 141 mmol/L (135-145); Total Bilirubin 0.5 mg/dL (0.3-1.2); Total Protein 6.8 d/dL (6.2-8.2)
== END | disposition home or self-care (01) ==
LOC: LABWHC1 07:39
PROVIDERS: ATTEND Internal Medicine
DX: E87.5 Hyperkalemia (principal); E83.52 Hypercalcemia
CPT/HCPCS: 36415; 80053; 82330; 83970; 85025

== ENCOUNTER → 2023-02-17 | Outpatient (CLI) | payer MEDICARE ==
--- NOTE | 2023-02-17 14:52 | US ---
EXAMINATION TYPE: US arterial LE single level DATE OF EXAM: 02/17/2023 12:16 PM CLINICAL INDICATION: Female, 77 years old with history of I73.9 PERIPHERAL VASCULAR DISEASE, UNSPECIF IED; History of: Smoker: No Hypertension: Yes Diabetic: No Hyperlipidemia: Yes TIA/CVA: No Doppler Waveforms: Right: Multiphasic Left: Multiphasic Right Brachial Pressure: 105 Left Brachial Pressure: 116 Ankle-Brachial Indices: Right: 1.22 Left: 1.14 Toe Brachial Indices: Right: 0.87 Left: 0.72 IMPRESSION: Normal ankle-brachial indices.
== END | disposition home or self-care (01) ==
LOC: RADUSWWP 11:54
PROVIDERS: ATTEND Internal Medicine
DX: I73.9 Peripheral vascular disease, unspecified (principal)
CPT/HCPCS: 93922

== ENCOUNTER → 2023-04-02 | Outpatient (CLI) | payer MEDICARE ==
--- NOTE | 2023-04-02 09:14 | XR ---
EXAMINATION TYPE: XR shoulder complete BILAT DATE OF EXAM: 04/02/2023 CLINICAL HISTORY: pain TECHNIQUE: Three views of the right shoulder are obtained. COMPARISON: None FINDINGS: There is no acute fracture/dislocation evident. The acromioclavicular and glenohumeral anjelica int spaces appear mildly narrowed. The visualized ribs are intact and unremarkable. IMPRESSION: 1. There is no acute fracture or dislocation. ICD 10 NO FRACTURE, INITIAL EVALUATION EXAMINATION TYPE: XR shoulder complete BILAT DATE OF EXAM: 04/02/2023 CLINICAL HISTORY: pain COMPARISON: NONE TECHNIQUE: Three views of the left shoulder are obtained. FINDINGS: There is no acute fracture/dislocation evident. The acromioclavicular and glenohumeral anjelica int spaces appear severely narrowed. Subchondral sclerosis. Spurring about the humeral head. The vis ualized ribs are intact and unremarkable.
== END | disposition home or self-care (01) ==
LOC: RADXRMAIN 07:46
PROVIDERS: ATTEND Internal Medicine
DX: M25.511 Pain in right shoulder (principal); M25.512 Pain in left shoulder

== ENCOUNTER → 2023-07-31 | Outpatient (CLI) | payer MEDICARE ==
--- NOTE | 2023-07-31 14:16 | MR ---
EXAMINATION TYPE: MR lumbar spine wo con DATE OF EXAM: 07/31/2023 COMPARISON: None HISTORY: Chronic lower back pain. TECHNIQUE: Multiplanar, multisequence images of the lumbar spine were acquired without IV contrast. L1-L2: Moderate disc desiccation posterior disc bulge. Mild effacement ventral thecal sac. No evidenc e for disc herniation or protrusion. No central stenosis. No foraminal encroachment seen. L2-L3: Moderate disc desiccation posterior disc bulge. Mild effacement ventral thecal sac. No evidenc e for disc herniation or protrusion. No central stenosis. No foraminal encroachment seen. L3-L4: Moderate disc desiccation posterior disc bulge. Mild effacement ventral thecal sac. No evidenc e for disc herniation or protrusion. No central stenosis. No foraminal encroachment seen. L4-L5: Severe disc desiccation with grade 1 anterolisthesis measuring 3 mm. Posterior disc bulge with hypertrophy ligamentum flavum and facet joint arthropathy resulting in mild central stenosis and constantino ateral foraminal encroachment. L5-S1: Moderate disc desiccation posterior disc bulge. Mild effacement ventral thecal sac. No evidenc e for disc herniation or protrusion. No central stenosis. No foraminal encroachment seen. Lumbar segments are intact. No paraspinal masses are identified. Conus medullaris has a normal appe arance. IMPRESSION: 1. Multilevel degenerative disc disease. 2. Central stenosis at L4-5.
== END | disposition home or self-care (01) ==
LOC: RADMRIMAIN 12:43
PROVIDERS: ATTEND Orthopaedic Surgery
DX: M51.36 Other intervertebral disc degeneration, lumbar region (principal); M48.061 Spinal stenosis, lumbar region without neurogenic claudication
CPT/HCPCS: 72148

== ENCOUNTER → 2023-10-09 | Outpatient (CLI) | payer MEDICARE ==
[2023-10-09 18:34] LABS: T4, Free (Free Thyroxine) 1.13 ng/dL (0.80-1.80)
== END | disposition home or self-care (01) ==
LOC: LABWHC1 13:02
PROVIDERS: ATTEND Internal Medicine Endocrinology, Diabetes & Metabolism
DX: E04.2 Nontoxic multinodular goiter (principal)
CPT/HCPCS: 36415; 84439; 84443

== ENCOUNTER → 2023-10-09 | Outpatient (CLI) | payer MEDICARE ==
--- NOTE | 2023-10-10 10:28 | US ---
EXAMINATION TYPE: US thyroid st tissue head/neck DATE OF EXAM: 10/09/2023 COMPARISON: 09/23/2022 CLINICAL INDICATION: Female, 78 years old with history of E04.2 NONTOXIC MULTINODULAR GOITER; Patient has hx of thyroid nodules GLAND SIZE: Right Lobe: 5.5 x 2.1 x 2.0 cm Overall Parenchyma: heterogeneous Left Lobe: 4.4 x 1.7 x 1.4 cm Overall Parenchyma: heterogeneous Isthmus Thickness: 0.2 cm NODULES RIGHT: # of nodules measured on right: 3 1. 2.3 X 1.5 x 1.9 cm, mid mid, solid or almost completely solid, hypoechoic nodule, which is wider than tall, with smooth margins, without echogenic foci. Prior size: 2.1 x 1.1 x 1.8 cm 2. 1.0 X 0.8 x 1.0 cm, lower mid, mixed cystic and solid, hypoechoic nodule, which is wider than ta ll, with smooth margins, without echogenic foci. Prior size: 0.9 x 0.7 x 0.9 cm 3. 0.5 X 0.3 x 0.5 cm, lower mid, solid or almost completely solid, isoechoic nodule, which is wide r than tall, with smooth margins, without echogenic foci. Not seen prior LEFT: # of nodules measured on left: 3 1. 1.0 X 0.6 x 0.8 cm, mid medial, mixed cystic and solid, hypoechoic nodule, which is wider than t all, with smooth margins, without echogenic foci. Prior size: 0.9 x 0.4 x 0.6 cm 2. 1.0 X 0.6 x 0.9 cm, mid mid, solid or almost completely solid, hypoechoic nodule, which is wide r than tall, with smooth margins, without echogenic foci. Prior size: 0.8 x 0.6 x 0.7 cm 3. 0.6 X 0.3 x 0.4 cm, mid medial, cystic or almost completely cystic, nodule, which is wider than tall, with smooth margins, without echogenic foci. Not measured on prior ISTHMUS: # of nodules measured in the isthmus: 0 Bilateral neck scanned, no evidence of lymphadenopathy. IMPRESSION: 1. No thyromegaly. 2. Multinodular thyroid with 3 nodules in each thyroid lobe, the largest of which is a 2.3 cm nodule in the right lobe of the thyroid gland labeled as nodule #1. It has increased in size from 2.1 x 1.1 x 1.8 cm to 2.3 x 1.5 x 1.9 cm. TR 4 nodule. If not already performed, fine-needle aspiration is rec ommended particularly given its increased size. 2017 ACR TI-RADS LEVEL: 4 *Highest TI-RADS level nodule reported
== END | disposition home or self-care (01) ==
LOC: RADUSWWP 12:23
PROVIDERS: ATTEND Internal Medicine Endocrinology, Diabetes & Metabolism
DX: E04.2 Nontoxic multinodular goiter (principal)
CPT/HCPCS: 76536

== ENCOUNTER → 2024-01-11 | Outpatient (CLI) | payer MEDICARE ==
--- NOTE | 2024-01-12 13:19 | MM ---
Reason for Exam: Screening (asymptomatic). Last screening mammogram was performed 12 month(s) ago. Patient History: Menarche at age 14. Patient has no children. Left ovary removed at age 58. Right ovary removed at age 58. Hysterectomy at age 58. Postmenopausal. Other cancer. Patient used Hormonal Contraceptives for 1 year. 2010, US biopsy breast VAD RT on the Right side. Mother had breast cancer, age 47. Risk Values: Cary 5 year model risk: 4.0%. NCI Lifetime model risk: 7.6%. Prior Study Comparison: 01/04/2021 Bilateral Screening Mammogram, [facility]. 01/06/2022 Bilateral MG 3D screening mammo w/cad, [facility]. 01/08/2023 Bilateral MG 3D screening mammo w/cad, [facility]. Tissue Density: The breasts are heterogeneously dense, which may obscure small masses. Findings: Analyzed By CAD. There is no suspicious group of microcalcifications or new suspicious mass in either breast. Overall Assessment: Benign, BI-RAD 2 Management: Screening Mammogram of both breasts in 1 year. . Patient should continue monthly self-breast exams. A clinical breast exam by your physician is recommended on an annual basis. This exam should not preclude additional follow-up of suspicious palpable abnormalities. Note on Cary scores and lifetime risk: 1. A Cary score greater than 3% is considered moderate risk. If this is the case, consider specialist referral to assess eligibility for a risk reducing agent. 2. If overall lifetime risk for the development of breast cancer is 20% or higher, the patient may qualify for future screening with alternating mammogram and breast MRI. Electronically signed and approved by: Reji Gracia M.D. Radiologis
== END | disposition home or self-care (01) ==
LOC: RADMAMWWP 09:38
PROVIDERS: ATTEND Surgery
DX: Z12.31 Encounter for screening mammogram for malignant neoplasm of breast (principal); Z78.0 Asymptomatic menopausal state; Z80.3 Family history of malignant neoplasm of breast; R92.333 Mammographic heterogeneous density, bilateral breasts
CPT/HCPCS: 77063; 77067

== ENCOUNTER → 2024-01-15 | Outpatient (CLI) | payer MEDICARE ==
[2024-01-15 11:37] VITALS: BP 126/75; PULSE 59; RESP 17; TEMP 98.8
--- NOTE | 2024-01-15 11:56 | P.PN ---
Subjective Progress Note Date: 01/15/24 Principal diagnosis: dense breast, high risk breast cancer, Cary 5 year 4%, fibrocystic disease, mastodynia, fungal infection 01/15/24 Principal diagnosis: Mrs. Ferrara is a 78-year-old white female who was initially seen approximately six years ago with a complaint of pain in her right breast. Since that time she has taken primrose oil and the pain is only present with deep palpation. She had a bilateral mammogram performed on This was benign BIRADS 2, this was personally interpreted The patient drinks decaffeinated coffee, she is not exposed to secondhand smoke, and she drinks approximately one soda a day and this is caffeine free. She does not smoke. She does not eat chocolate often. She is not taking primrose oil at this time, but has noticed a decreased discomfort in the right breast. At this time she is not complaining of any lumps masses or nodules in either breast. She does have a slight rash under both breast. She is complaining about breast pain with examination. We discussed chemoprophylaxis and at this time she has declined. Cary risk 4% at 5 years NCI risk 7.6% lifetime Family history: 1. Maternal grandmother with leukemia 2. Mother breast cancer 47 of breast cancer, locally advanced "hole in her side" 3. Father melanoma and prostate cancer Past surgical history: 1. Hysterectomy 2. Appendectomy 3. Bilateral hip replacement 4. Cardiac ablation/ done for SVT 5. Left-sided neck lump 6. right knee replacement 7. left knee replacement 8. parathyroid resection Past medical history: 1. hypotension; follows with cardiology 2. DVT 20 years ago 3. eye disorder 4. reflux 5. hyperlipedema 6. Pulmoary embolis 20 years ago 7. osteoarthrits 8. parathyroid elevated 9. Left DVT/pulmonary embolus on eliquis September 2022 menarche: 14 : none, intentional menopause: about 51, hysterectomy at 61 took ovaries done for fibroid tumors hormones: none BCP: 5 years Social history: Smoking: Negative Alcohol: negative Drugs: Negative - Constitutional Constitutional: Reports sweats, Denies chills, Denies fever - EENT Eyes: bilateral decreased vision (macular degenertion), denies blurred vision, denies pain Ears: deny: decreased hearing, tinnitus Ears, nose, mouth and throat: Denies headache, Denies sore throat - Breasts Breasts: bilateral: as per HPI - Cardiovascular Comment: cardiac ablation, has PVC Cardiovascular: Reports recent hypotension, scheduled for a cardiac cath - Respiratory Respiratory: Denies cough - Gastrointestinal Gastrointestinal: Denies abdominal pain, Denies diarrhea, Denies nausea, Denies vomiting, reflux gone on medication - Menstruation Menstruation: Reports post hysterectomy, Reports postmenopausal - Musculoskeletal Comment: osteo arthritis - Integumentary Comment: pre-cancers removed - Neurological Neurological: Denies numbness, Denies weakness - Psychiatric Psychiatric: Denies anxiety, Denies depression - Endocrine Endocrine: Denies fatigue, Denies weight change - Hematologic/Lymphatic Comment: aspirin - Allergic/Immunologic Comment: Bactrim Objective - Vital Signs Vital signs: Vital Signs Temp 98.8 F 01/15/24 11:35 Pulse 59 L 01/15/24 11:35 Resp 17 01/15/24 11:35 BP 126/75 01/15/24 11:35 Pulse Ox 98 01/15/24 11:35 FiO2 Intake & Output 01/14/24 01/15/24 01/15/24 18:59 06:59 18:59 Weight 73.936 kg - Constitutional General appearance: Present: cooperative - EENT Eyes: Present: EOMI ENT: Present: hearing grossly normal - Neck Neck: Present: normal ROM - Respiratory Respiratory: bilateral: CTA - Cardiovascular Rhythm: regular Heart sounds: normal: S1, S2 - Integumentary Integumentary: Present: normal turgor - Musculoskeletal Musculoskeletal: Present: gait normal - Psychiatric Psychiatric: Present: A&O x's 3, appropriate affect, intact judgment & insight - Additional findings Additional findings: Breast examination: BRA: 40C Inspection: Right breast larger than left, bilateral grade 3 ptosis, rash under both breast consistent with fungal infection palpation: Right breast: Multi-positional exam fibrocystic changes or dominant masses or nodules of concern, tender to palpation greatest in the 12 o'clock position no discrete lumps associated with this Right axilla: No adenopathy of concern Left breast: Multi-positional exam fibrocystic changes no dominant masses or nodules of concern, tender to palpation greatest in the 12 o'clock position no discrete lumps associated with this Left axilla: No adenopathy of concern Assessment and Plan Assessment: Impression: 1. Hypotension, follows with cardiology 2. DVT 3. Eye disorder 4. Reflux 5. Hyperlipidemia 6. Pulmonary emboli in the past 7. Osteoarthritis 8. Bilateral fibrocystic breast changes 9. Recent bilateral mammogram BIRADS 2 (7-20-23) 10. surgery for hyperparathyroidism 11. Recent left DVT and pulmonary embolus patient is presently on elaquis 12. Mastodynia 13. Dense breast 14. High risk breast cancer 15. Fibrocystic breast changes 16. Fungal infection under both breast Plan: Bilateral mammogram in 1 year Trial of primrose oil Nystatin to area fungal infection At this time there is nothing which would warrant interventional biopsy Patient to call sooner any questions or concerns patient declined chemoprevention Cc: Dr. Mcneil
== END ==
LOC: WWCWWP 10:33
PROVIDERS: ATTEND Surgery
DX: R92.30 Dense breasts, unspecified (principal); N64.4 Mastodynia; B48.8 Other specified mycoses; I95.9 Hypotension, unspecified; K21.9 Gastro-esophageal reflux disease without esophagitis; E78.5 Hyperlipidemia, unspecified; H57.9 Unspecified disorder of eye and adnexa; N60.11 Diffuse cystic mastopathy of right breast; N60.12 Diffuse cystic mastopathy of left breast; M19.90 Unspecified osteoarthritis, unspecified site; R92.8 Other abnormal and inconclusive findings on diagnostic imaging of breast; E21.3 Hyperparathyroidism, unspecified; Z79.01 Long term (current) use of anticoagulants; Z86.718 Personal history of other venous thrombosis and embolism; Z80.3 Family history of malignant neoplasm of breast; Z86.711 Personal history of pulmonary embolism; Z88.2 Allergy status to sulfonamides; Z88.1 Allergy status to other antibiotic agents

== ENCOUNTER → 2024-09-28 | Outpatient (CLI) | payer MEDICARE | END | disposition home or self-care (01) | LOC: RADBDWWP 14:17 | PROVIDERS: ATTEND Internal Medicine | DX: Z53.9 Procedure and treatment not carried out, unspecified reason (principal) ==

== ENCOUNTER → 2024-09-28 | Outpatient (CLI) | payer MEDICARE ==
--- NOTE | 2024-09-28 14:23 | CA ---
Transthoracic Echo Report Name: Nay Ferrara Age: 79 Gender: F : 1945 Exam Date: 09/28/2024 13:46 Exam Location: [facility] Ht (in): 69 Wt (lb): 165 Ordering Physician: Cameron Raphael DO Attending/Referring Phys: Draw Tender Kathie Veliz RDCS Procedure CPT: Indications: R00.2 palpitations Cardiac Hx: Technical Quality: Good Contrast 1: Total Dose (mL): Contrast 2: Total Dose (mL): MEASUREMENTS (Male / Female) Normal Values 2D ECHO LV Diastolic Diameter PLAX 4.2 cm 4.2 - 5.9 / 3.9 - 5.3 cm LV Systolic Diameter PLAX 3.3 cm IVS Diastolic Thickness 1.2 cm 0.6 - 1.0 / 0.6 - 0.9 cm LVPW Diastolic Thickness 1.1 cm 0.6 - 1.0 / 0.6 - 0.9 cm LV Relative Wall Thickness 0.5 RV Internal Dim ED PLAX 3.4 cm LA Systolic Diameter LX 3.9 cm 3.0 - 4.0 / 2.7 - 3.8 cm LV Diastolic Volume MOD 4C 71.7 cm??? LV Systolic Volume MOD 4C 32.1 cm??? LV Ejection Fraction MOD 4C 55.2 % LV Cardiac Index MOD 4C 1466.2 cm???/min???m??? LV Diastolic Length 4C 6.9 cm LV Systolic Length 4C 5.3 cm LV Diastolic Volume MOD 2C 63.9 cm??? LV Systolic Volume MOD 2C 24.9 cm??? LV Ejection Fraction MOD 2C 61.0 % LV Cardiac Index MOD 2C 1443.8 cm???/min???m??? LV Diastolic Length 2C 7.2 cm LV Systolic Length 2C 5.7 cm M-MODE Aortic Root Diameter MM 2.8 cm DOPPLER AV Peak Velocity 140.8 cm/s AV Peak Gradient 7.9 mmHg AI Peak Velocity 365.2 cm/s AI Peak Gradient 53.3 mmHg AI Pressure Half Time 587.5 ms Mitral E Point Velocity 60.0 cm/s Mitral A Point Velocity 69.1 cm/s Mitral E to A Ratio 0.9 MV Deceleration Time 221.8 ms TR Peak Velocity 252.4 cm/s TR Peak Gradient 25.5 mmHg Right Ventricular Systolic Press 35.7 mmHg FINDINGS Left Ventricle Left ventricular ejection fraction is estimated at 55-60 %. Left ventricular cavity size normal. Mildly increased septal wall thickness. Mildly increased posterior wall thickness. Normal left ventricular wall motion. Right Ventricle Mild right ventricular dilatation. Mild pulmonary hypertension. Right Atrium Normal right atrial size. No right atrial thrombus or mass seen. Left Atrium Normal left atrial size. No left atrial thrombus or mass present. Mitral Valve Structurally normal mitral valve. No evidence for mitral valve prolapse. No mitral stenosis. Mild to moderate mitral regurgitation. Aortic Valve Trileaflet aortic valve. Thickened aortic valve without stenosis. Mild aortic regurgitation. Tricuspid Valve Structurally normal tricuspid valve. Mild to moderate tricuspid regurgitation. Pulmonic Valve Structurally normal pulmonic valve. Mild pulmonic regurgitation. Pericardium No pericardial effusion. Aorta Normal size aortic root and proximal ascending aorta. CONCLUSIONS Normal biventricular systolic function Mild to moderate mitral regurgitation Mild aortic regurgitation Mild to moderate tricuspid regurgitation Previewed by: Dr. Gabe Howell MD (Electronically Signed) Final Date: 28 September 2024 14:22
== END | disposition home or self-care (01) ==
LOC: RADECHMAIN 13:32
PROVIDERS: ATTEND Internal Medicine
DX: I08.3 Combined rheumatic disorders of mitral, aortic and tricuspid valves (principal); R00.2 Palpitations
CPT/HCPCS: 93306

== ENCOUNTER → 2024-11-03 | Outpatient (CLI) | payer MEDICARE ==
--- NOTE | 2024-11-03 21:34 | US ---
EXAMINATION TYPE: US thyroid st tissue head/neck DATE OF EXAM: 11/03/2024 COMPARISON: 10/09/23 CLINICAL INDICATION: Female, 79 years old with history of E04.1 THYROID NODULE; follow up TECHNIQUE: Grayscale and color Doppler imaging of the thyroid gland. FINDINGS: GLAND SIZE: Right Lobe: 5.5 x 2.0 x 1.9 cm Overall Parenchyma: heterogeneous Left Lobe: 4.7 x 1.7 x 1.7 cm Overall Parenchyma: heterogeneous Isthmus Thickness: 0.1 cm NODULES RIGHT: # of nodules measured on right: 2 1. 2.4 X 2.2 x 1.5 cm, mid mid, solid or almost completely solid, hypoechoic TR 4 nodule, which is wider than tall, with smooth margins, without echogenic foci. Prior size: 2.3 x 1.9 x 1.5 cm 2. 0.9 X 0.9 x 0.7 cm, lower mid, solid or almost completely solid, hypoechoic TR 4 nodule, which i s wider than tall, with lobulated or irregular margins, without echogenic foci. Prior size: 1.0 x 1.0 x 0.8 cm LEFT: # of nodules measured on left: 2 1. 1.0 X 0.8 x 0.5 cm, mid mid, solid or almost completely solid, isoechoic TR 3 nodule, which is w ider than tall, with lobulated or irregular margins, without echogenic foci. Prior size: 1.0 x 0.8 x 0.6 cm 2. 0.9 X 0.9 x 0.5 cm, lower mid, solid or almost completely solid, hypoechoic TR 4 nodule, which is wider than tall, with smooth margins, without echogenic foci. Prior size: 1.0 x 0.9 x 0.6 cm ISTHMUS: # of nodules measured in the isthmus: 0 Bilateral neck scanned, no evidence of lymphadenopathy. IMPRESSION: 1. Consider multinodular goiter. 2. The dominant nodule is located on the right. This is a TR4 nodule measuring 2.4 cm, stable to mini marcela larger from 2.3 cm, previously. FNA if not previously performed. TR3: If nodule size is ? 2.5 cm, FNA is recommended. If nodule size is ? 1.5 cm, follow-up imaging at 1, 3, and 5 years is recommended. TR4: If nodule size is ? 1.5 cm, FNA is recommended. If nodule size is ? 1.0 cm, follow-up imaging at 1, 2, 3, and 5 years is recommended. [facility], , 11/03/2024 9:32 PM
== END | disposition home or self-care (01) ==
LOC: RADUSWWP 15:13
PROVIDERS: ATTEND Internal Medicine
DX: E04.2 Nontoxic multinodular goiter (principal)
CPT/HCPCS: 76536

== ENCOUNTER 2024-11-24 08:17 | Day surgery (SDC) | payer MEDICARE ==
[2024-11-24 09:39] VITALS: RESP 16; TEMP 98
[2024-11-24 10:03] VITALS: BP 115/73; PULSE 64
--- NOTE | 2024-11-24 11:20 | US ---
EXAMINATION TYPE: US FNA thyroid first lesion DATE OF EXAM: 11/24/2024 9:53 AM COMPARISON: Thyroid ultrasound CLINICAL INDICATION:Female, 79 years old with history of E04.2 NONTOXIC MULTINODULAR GOITER; , ATTENDING: Dr. Avila Herrera PROCEDURE: Informed consent was obtained. The risks and benefits of the procedure were discussed with the patien t. The site was marked. Timeout procedure was performed Ultrasound imaging demonstrates right thyroid nodule The patient was prepped, draped in the usual sterile fashion, and locally anesthetized with 1% lidoca ine. Five fine needle aspiration were then performed with a 25 gauge needle. Samples were sent to [facility] pathology department for further analysis. Patient tolerated the procedure without incident and wa s sent home in stable condition. IMPRESSION: Successful ultrasound guided fine needle aspiration [facility], , 11/24/2024 11:18 AM
== END 2024-11-24 10:05 | disposition home or self-care (01) ==
LOC: RADPROMAIN 08:17
PROVIDERS: ATTEND Internal Medicine
DX: E04.1 Nontoxic single thyroid nodule (principal)
CPT/HCPCS: 10005; 88173; 88305

== ENCOUNTER → 2025-01-12 | Outpatient (CLI) | payer MEDICARE ==
--- NOTE | 2025-01-12 11:19 | MM ---
Reason for Exam: Screening (asymptomatic). Last screening mammogram was performed 12 month(s) ago. Patient History: Menarche at age 14. Patient has no children. Left ovary removed at age 58. Right ovary removed at age 58. Hysterectomy at age 58. Postmenopausal. Other cancer. Patient used Hormonal Contraceptives for 1 year. 2010, US biopsy breast VAD RT on the Right side. Mother had breast cancer, age 47. Risk Values: Cary 5 year model risk: 4.0%. NCI Lifetime model risk: 7.1%. Prior Study Comparison: 01/06/2022 Bilateral MG 3D screening mammo w/cad, [facility]. 01/08/2023 Bilateral MG 3D screening mammo w/cad, [facility]. 01/11/2024 Bilateral MG 3D screening mammo w/cad, [facility]. Tissue Density: The breasts are heterogeneously dense, which may obscure small masses. Findings: Analyzed By CAD. Right breast biopsy clip. Right breast: There is no suspicious group of microcalcifications or new suspicious mass. Left breast: There is no suspicious group of microcalcifications or new suspicious mass. Overall Assessment: Benign, BI-RAD 2 Management: Screening Mammogram of both breasts in [address] [facility] will attempt to contact patient to return for supplemental views and ultrasound if indicated. Patient should continue monthly self-breast exams. A clinical breast exam by your physician is recommended on an annual basis. This exam should not preclude additional follow-up of suspicious palpable abnormalities. Note on Cary scores and lifetime risk: 1. A Cary score greater than 3% is considered moderate risk. If this is the case, consider specialist referral to assess eligibility for a risk reducing agent. 2. If overall lifetime risk for the development of breast cancer is 20% or higher, the patient may qualify for future screening with alternating mammogram and breast MRI. [facility], , 01/12/2025 11:16 AM. Electronically signed and approved by: Avila Herrera DO
== END | disposition home or self-care (01) ==
LOC: RADMAMWWP 09:57
PROVIDERS: ATTEND Surgery
DX: Z12.31 Encounter for screening mammogram for malignant neoplasm of breast (principal); R92.333 Mammographic heterogeneous density, bilateral breasts; Z78.0 Asymptomatic menopausal state; Z80.3 Family history of malignant neoplasm of breast; Z92.0 Personal history of contraception
CPT/HCPCS: 77063; 77067

== ENCOUNTER → 2025-01-19 | Outpatient (CLI) | payer MEDICARE ==
[2025-01-19 10:17] VITALS: BP 122/72; PULSE 72; RESP 17; TEMP 97.9
--- NOTE | 2025-01-19 10:34 | P.PN ---
Subjective Progress Note Date: 01/19/25 Principal diagnosis: fibrocystic breast disease, mastodynia, fungal infection under both breast 01/19/25 Principal diagnosis: dense breast, high risk breast cancer, Cary 5 year 4%, fibrocystic disease, mastodynia, fungal infection Principal diagnosis: Mrs. Ferrara is a 79-year-old white female who was initially seen approximately seven years ago with a complaint of pain in her right breast. Since that time she has taken primrose oil and the pain is only present with deep palpation. She had a bilateral mammogram performed on This was benign BIRADS 2, this was personally interpreted The patient drinks decaffeinated coffee, she is not exposed to secondhand smoke, and she drinks approximately one soda a day and this is caffeine free. She does not smoke. She does not eat chocolate often. She is not taking primrose oil at this time, but has noticed a decreased discomfort in the right breast. At this time she is not complaining of any lumps masses or nodules in either breast. She does have a slight rash under both breast. She is complaining about breast pain with examination. We discussed chemoprophylaxis and at this time she has declined. Cary risk 4% at 5 years NCI risk 7.1% lifetime Family history: 1. Maternal grandmother with leukemia 2. Mother breast cancer 47 of breast cancer, locally advanced "hole in her side" 3. Father melanoma and prostate cancer Past surgical history: 1. Hysterectomy 2. Appendectomy 3. Bilateral hip replacement 4. Cardiac ablation/ done for SVT 5. Left-sided neck lump 6. right knee replacement 7. left knee replacement 8. parathyroid resection 9. thyroid needle biopsy; benign 10. right eye cataract surgery; difficulty seeing now; left eye cataract surgery was OK Past medical history: 1. hypotension; follows with cardiology 2. DVT 20 years ago 3. eye disorder 4. reflux 5. hyperlipedema 6. Pulmoary embolis 20 years ago 7. osteoarthrits 8. parathyroid elevated 9. Left DVT/pulmonary embolus on September 2022 menarche: 14 : none, intentional menopause: about 51, hysterectomy at 61 took ovaries done for fibroid tumors hormones: none BCP: 5 years Social history: Smoking: Negative Alcohol: negative Drugs: Negative - Constitutional Constitutional: Reports sweats, Denies chills, Denies fever - EENT Eyes: bilateral decreased vision (macular degenertion), denies blurred vision, denies pain Ears: deny: decreased hearing, tinnitus Ears, nose, mouth and throat: Denies headache, Denies sore throat - Breasts Breasts: bilateral: as per HPI - Cardiovascular Comment: cardiac ablation, has PVC Cardiovascular: Reports recent hypotension, scheduled for a cardiac cath - Respiratory Respiratory: Denies cough - Gastrointestinal Gastrointestinal: Denies abdominal pain, Denies diarrhea, Denies nausea, Denies vomiting, reflux gone on medication - Menstruation Menstruation: Reports post hysterectomy, Reports postmenopausal - Musculoskeletal Comment: osteo arthritis - Integumentary Comment: pre-cancers removed - Neurological Neurological: Denies numbness, Denies weakness - Psychiatric Psychiatric: Denies anxiety, Denies depression - Endocrine Endocrine: Denies fatigue, Denies weight change - Hematologic/Lymphatic Comment: aspirin - Allergic/Immunologic Comment: Bactrim Objective - Vital Signs Vital signs: Vital Signs Temp 97.9 F 01/19/25 10:13 Pulse 72 01/19/25 10:13 Resp 17 01/19/25 10:13 BP 122/72 01/19/25 10:13 Pulse Ox 95 01/19/25 10:13 FiO2 Intake & Output 01/18/25 01/19/25 01/19/25 18:59 06:59 18:59 Weight 77.111 kg - Constitutional General appearance: Present: cooperative - EENT Eyes: Present: EOMI ENT: Present: hearing grossly normal - Neck Neck: Present: normal ROM - Respiratory Respiratory: bilateral: CTA - Cardiovascular Rhythm: regular Heart sounds: normal: S1, S2 - Integumentary Integumentary: Present: normal turgor - Musculoskeletal Musculoskeletal: Present: gait normal - Psychiatric Psychiatric: Present: A&O x's 3, appropriate affect, intact judgment & insight - Additional findings Additional findings: Breast examination: BRA: 40C Inspection: Right breast larger than left, bilateral grade 3 ptosis, rash under both breast consistent with fungal infection palpation: Right breast: Multi-positional exam fibrocystic changes or dominant masses or nodules of concern, tender to palpation greatest in the 12 o'clock position no discrete lumps associated with this Right axilla: No adenopathy of concern Left breast: Multi-positional exam fibrocystic changes no dominant masses or nodules of concern, tender to palpation greatest in the 12 o'clock position no discrete lumps associated with this Left axilla: No adenopathy of concern Assessment and Plan Assessment: Impression: 1. Hypotension, follows with cardiology 2. DVT 3. Eye disorder 4. Reflux 5. Hyperlipidemia 6. Pulmonary emboli in the past 7. Osteoarthritis 8. Bilateral fibrocystic breast changes 9. Recent bilateral mammogram BIRADS 2 (7-24-25) 10. surgery for hyperparathyroidism 11. Recent left DVT and pulmonary embolus patient is presently on elaquis 12. Mastodynia 13. Dense breast 14. High risk breast cancer 15. Fibrocystic breast changes 16. Fungal infection under both breast Plan: Bilateral mammogram in 1 year, December 2025 primrose oil Nystatin to area fungal infection At this time there is nothing which would warrant interventional biopsy Patient to call sooner any questions or concerns patient declined chemoprevention Cc: Dr. Mcneil
== END ==
LOC: WWCWWP 09:34
PROVIDERS: ATTEND Surgery
DX: I95.9 Hypotension, unspecified (principal); I82.402 Acute embolism and thrombosis of unspecified deep veins of left lower extremity; K21.9 Gastro-esophageal reflux disease without esophagitis; E78.5 Hyperlipidemia, unspecified; M19.90 Unspecified osteoarthritis, unspecified site; N60.11 Diffuse cystic mastopathy of right breast; N60.12 Diffuse cystic mastopathy of left breast; N64.4 Mastodynia; B35.9 Dermatophytosis, unspecified; R92.30 Dense breasts, unspecified; Z86.711 Personal history of pulmonary embolism; Z88.2 Allergy status to sulfonamides